=== PATIENT | male | born 1960 | race Caucasian/White ===

== ENCOUNTER 2022-02-05 07:16 | Outpatient (CLI) | payer BC, SELFPAY ==
[2022-02-05 15:05] LABS: SARS-CoV-2 RNA PCR Negative (Negative)
== END 2022-02-05 07:17 | disposition home or self-care (01) ==
PROVIDERS: PCP Internal Medicine; Visit Provider Surgery
DX: Z01.818 Encounter for other preprocedural examination (principal); Z20.822 Contact with and (suspected) exposure to COVID-19
CPT/HCPCS: C9803; U0003; U0005

== ENCOUNTER 2022-02-07 01:17 | Day surgery (SDC) | payer BC, SELFPAY ==
[2022-01-29 15:09] VITALS: BMI 32.5
--- NOTE | 2022-02-07 06:34 | WPDANESEPPF ---
Anes - Initial Pre Proc Eval Procedure: Operation Date: 02/07/22 08:30 Proposed Procedures p Screening Colonoscopy - Hector Guerrero DO Date/Time: 02/07/22 06:34 Surgeon: Hector Guerrero DO Pre Op Diagnosis: hx of colon polyps Patient Data Age: 61 Gender: M Height: 1.83 m Weight: 109 kg Allergies Allergy/AdvReac Type Severity Reaction Status Date / Time No Known Allergies Allergy Verified 02/07/22 07:49 Home Medications Medication Instructions Recorded Confirmed Type No Home Medications 01/29/22 02/07/22 History Patient hx anesthesia problems: none Family hx anesthesia problems: none Results Review: All pre-operative results and documents have been reviewed as part of the pre-operative evaluation. FORMERLY [facility], [facility] Past Medical History Medical History (Updated 02/07/22 @ 08:33 by Evelio Nguyen DO) ALPESH (obstructive sleep apnea) Social History Social History (System 04/28/20 @ 09:54 by Lexie Brar) Smoking packs per day: 0.75 Smoking cigarettes per day: 15.0 Years smoked: 44 Smoking pack-years: 33.00 Smoking status: Current every day smoker Tobacco type: cigarettes Alcohol intake: current Drinks per week: 1 Substance use: never Substance use type: does not use Living arrangements: with family Spiritual care concerns: No Anes - Eval Final PreProcedure Day of Procedure 02/07/22 06:34 Patient weight: obese Heart: regular rate and rhythm Lungs: clear to auscultation and normal air movement Airway: Mallampati scale class II Neurological: alert and oriented Last oral intake: >/= 8 hours ASA classification: III Emergent: no Anesthetic plan: proceed Anesthesia type and monitoring: general GIVS and standard monitoring Results Review: All pre-operative results and documents have been reviewed as part of the pre-operative evaluation. Informed Consent: The patient's anesthetic plan and its attendant risks and benefits were discussed with the patient/family/POA. Questions were solicited and answers provided to the satisfaction of the patient/family/POA.
[2022-02-07 07:40] VITALS: BP 121/89; PULSE 89; RESP 20; TEMP 36.3; O2SAT 98; BMI 32.8
[2022-02-07] MEDS: LACTATED RINGERS 1,000 ML 150 ML IV CONT (08:03)
--- NOTE | 2022-02-07 09:04 | PM.IMHP ---
H&P: HPI History of Present Illness Date/Time: 02/07/22 09:04 Chief Complaint: history of colon polyps Narrative: this is a 61-year-old man who presents for colonoscopy. Last colonoscopy was about 3 year 4 years ago. He has a history of colon polyps in states that during his 1st colonoscopy 1 of the polyps was cancerous. He denies any hematochezia or melena. He denies any first-degree relatives with colon cancer. Review of Systems Review of Systems: All systems reviewed & are unremarkable except as noted in HPI and below Constitutional: Constitutional: Denies chills, Denies fever(s), Denies headache(s) and Denies weight loss Eyes: Eyes: Denies change in vision ENT: Denies dizziness, Denies headache(s), Denies neck mass and Denies throat swelling Cardiovascular: Cardiovascular: Denies chest pain, Denies lightheadedness and Denies dyspnea Respiratory: Respiratory: Denies cough, Denies dyspnea and Denies wheezing Gastrointestinal: Gastrointestinal: Denies abdominal pain, Denies change in bowel habits, Denies nausea and Denies vomiting Genitourinary: Genitourinary: Denies hematuria and Denies dysuria Musculoskeletal: Musculoskeletal: Reports as per HPI Integumentary/Breasts: Skin/Breast: Reports as per HPI Neurologic: Denies dizziness and Denies headache(s) Allergic/Immunologic: Allergic/Immunologic: Denies throat swelling and Denies wheezing [facility] Past Medical History Medical History (Updated 02/07/22 @ 09:05 by Hector Guerrero DO) ALPESH (obstructive sleep apnea) Social History Social History (System 04/28/20 @ 09:54 by Lexie Brar) Smoking packs per day: 0.75 Smoking cigarettes per day: 15.0 Years smoked: 44 Smoking pack-years: 33.00 Smoking status: Current every day smoker Tobacco type: cigarettes Alcohol intake: current Drinks per week: 1 Substance use: never Substance use type: does not use Living arrangements: with family Spiritual care concerns: No Meds Home Medications and Allergies Home Medications Medication Instructions Recorded Confirmed Type No Home Medications 01/29/22 02/07/22 History Allergies Allergy/AdvReac Type Severity Reaction Status Date / Time No Known Allergies Allergy Verified 02/07/22 07:49 Vital Signs Vital Signs - 24 hr 02/07/22 07:40 Temperature 36.3 C L Pulse Rate 89 Respiratory Rate 20 Blood Pressure 121/89 Pulse Oximetry 98 Exam Const: General: no acute distress and alert Orientation/consciousness: patient oriented x3 HENMT: Head: normocephalic and atraumatic Ears: hearing grossly normal bilaterally General nose exam: Normal nares present Mouth: Yes Normal oral and palatal mucosa present Eyes: Periorbital: periorbital findings normal Sclera: sclerae normal EOM: EOMs intact bilaterally Neck: Neck: normal visual inspection, no lymphadenopathy and trachea midline Chest: Chest palpation & inspection: normal inspection of the chest Resp: Effort & Inspection: normal respiratory effort Auscultation: clear to auscultation bilaterally Cardio: Jugular venous distension: no JVD Rate: regular rate Rhythm: regular rhythm Heart sounds: S1 normal heart sound present and S2 normal heart sound present Peripheral pulses: Peripheral pulses 2+ throughout GI: Inspection: normal to inspection GI Palp: Yes Soft to palpation, No Tenderness to palpation present (GI), No Guarding due to palpation present (GI) and No Rebound tenderness present Percussion: Yes normal to percussion Auscultation: normal bowel sounds : General: Yes no CVA tenderness Back/Spine/Pelvis: Back: no CVA tenderness Neuro: General: patient oriented x3, no focal motor deficits and CN's II-XI intact bilaterally Cognition (Neuro): normal cognition Speech: normal speech Motor exam (neuro): 5/5 motor strength present throughout Extrem: General: capillary refill normal and no clubbing, cyanosis or edema Assessment and Plan Assessment
[2022-02-07 09:30] VITALS: BP 119/75; PULSE 81; RESP 24; O2SAT 96
[2022-02-07 09:40] VITALS: BP 125/74; PULSE 80; RESP 25; O2SAT 97
[2022-02-07 09:50] VITALS: BP 134/90; PULSE 80; RESP 20; O2SAT 100
== END 2022-02-07 10:50 | disposition home or self-care (01) ==
PROVIDERS: PCP Internal Medicine; Visit Provider Surgery
PROC: 0DJD8ZZ Inspection of Lower Intestinal Tract, Via Natural or Artificial Opening Endoscopic (ICD-10-PCS; CPT 45378; principal; 2022-02-07 08:30)
DX: Z12.11 Encounter for screening for malignant neoplasm of colon (principal); K57.30 Diverticulosis of large intestine without perforation or abscess without bleeding; D12.3 Benign neoplasm of transverse colon; K64.8 Other hemorrhoids; G47.33 Obstructive sleep apnea (adult) (pediatric); F17.210 Nicotine dependence, cigarettes, uncomplicated; E66.9 Obesity, unspecified; Z68.32 Body mass index [BMI] 32.0-32.9, adult
CPT/HCPCS: 45385; 88305; J2001; J2704; J7120

== ENCOUNTER 2023-12-15 12:19 | Emergency (ER) | payer MEDICAID, SELFPAY ==
[2023-12-15] VITALS (8 sets, daily range): BP systolic 107–152; BP diastolic 82–97; PULSE 78–101; RESP 16–19; TEMP 36.8–36.9; O2SAT 96–99
--- NOTE | 2023-12-15 12:27 | ED.GENADULT ---
HPI - General Adult General Chief complaint: Nausea/Vomiting/Diarrhea Stated complaint: diarreah/indigestion Time Seen by Provider: 12/15/23 12:21 History of Present Illness HPI narrative: Denis is a 63M with a PMH of hypertension that presented to the ED with 4 days of watery diarrhea. It started 4 days ago and he is having countless episodes throughout the day. He has been nauseated the last couple days and had a couple episodes of non-bloody vomiting. He denies melena and hematochezia. No fevers, chills, dyspnea or recent antibiotics. Related Data Allergies Allergy/AdvReac Type Severity Reaction Status Date / Time No Known Allergies Allergy Verified 11/04/22 14:00 Review of Systems Review of Systems: All systems reviewed & are unremarkable except as noted in HPI and below PMFSH Past Medical History Medical History ALPESH (obstructive sleep apnea) Social History Social History Smoking packs per day: 0.75 Smoking cigarettes per day: 15.0 Years smoked: 44 Smoking pack-years: 33.00 Smoking status: Current every day smoker Tobacco type: cigarettes Alcohol intake: current Drinks per week: 1 Substance use: never Substance use type: does not use Lack of Transportation: No Lack of Food: Never True Current Housing: I Have Housing Concerned About Future Housing: No Difficulty Paying Gas/Electric Bills: No Difficulty Paying for Meds: No Currently Unemployed: YES Education: Trade/Vocational Certificate Difficulty w/ Childcare or Family Care: No Living arrangements: with family Spiritual care concerns: No Exam Const: General: cooperative, healthy appearing, comfortable, no acute distress, well developed, alert, awake and Physically active Orientation/consciousness: oriented to person, oriented to place and oriented to time HENMT: Head: normal to inspection, normocephalic and atraumatic Ears: hearing grossly normal bilaterally and external ears normal Face/Nose/Sinus: Normal external nose present Other: dry mucous membranes Eyes: General: appearance normal, both eyes and all related structures Periorbital: periorbital findings normal Sclera: sclerae normal Pupils: Equal, round and reactive pupils present Neck: Neck: normal visual inspection Chest: Chest palpation & inspection: normal inspection of the chest Resp: Effort & Inspection: normal respiratory effort, able to speak in complete sentences and no respiratory distress Auscultation: clear to auscultation bilaterally Cardio: Jugular venous distension: no JVD Rate: regular rate Rhythm: regular rhythm GI: Inspection: normal to inspection GI Palp: Yes Soft to palpation Auscultation: Hyperactive bowel sounds present Other: No TTP or rebound tenderness Back/Spine/Pelvis: Back: no CVA tenderness Skin: General skin exam: normal color and no rashes or lesions noted Neuro: General: oriented to person, oriented to place and oriented to time Cranial nerves: Yes Equal, round and reactive pupils present Extrem: General: normal to inspection Course Course Emergency Course: Ordered UA, C. diff antigen, labs and fluids C. diff negative, labs unremarkable except for slight leukocytosis, and UA not concerning for infection Symptoms most likely from gastroenteritis vs methamphetamine withdrawal Vital Signs Vital signs: Vital Signs Temperature 98.3 F 12/15/23 12:23 Pulse Rate 101 H 12/15/23 12:23 Respiratory Rate 12/15/23 12:23 Blood Pressure 107/89 12/15/23 12:23 Pulse Oximetry 98 12/15/23 12:23 Oxygen Delivery Room Air 12/15/23 12:23 Temperature 98.3 F 12/15/23 12:23 Pulse Rate 101 H 12/15/23 12:23 Respiratory Rate 12/15/23 12:23 Blood Pressure 107/89 12/15/23 12:23 Pulse Oximetry 98 12/15/23 12:23 Oxygen Delivery Room Air 12/15/23 12:23
[2023-12-15 12:50] LABS: Basophils Absolute Auto 0.07 K/mm3 (0.00-0.10); Basophils Percent Auto 0.6 % (0.0-1.0); Eosinophils Absolute Auto 0.22 K/mm3 (0.02-0.50); Eosinophils Percent Auto 1.8 % (1.0-6.0); Hematocrit 50.8 % (40.0-54.0); Hemoglobin 16.4 g/dL (14.0-18.0); Immature Granulocyte Absolute 0.05 K/mm3 (0.00-0.00); Immature Granulocyte Percent A 0.4 % (0.0-0.0); Lymphocytes Absolute Auto 2.28 K/mm3 (1.10-4.50); Lymphocytes Percent Auto 18.4 % (18.0-42.0); Mean Corpuscular HGB Conc 32.3 g/dL (32.0-36.0); Mean Corpuscular Hemoglobin 28.9 pg (27.0-31.0); Mean Corpuscular Volume 89.4 fL (78.0-102.0); Mean Platelet Volume 10.7 fl (8.7-11.0); Monocytes Absolute Auto 1.33 K/mm3 (0.10-0.90); Monocytes Percent Auto 10.7 % (2.0-11.0); Neutrophils Absolute Auto 8.4 K/mm3 (1.7-7.2); Neutrophils Percent Auto 68.1 % (50.0-70.0); Platelet Count Result 331 K/mm3 (150-420); Red Blood Count 5.68 M/mm3 (4.70-6.10); White Blood Count 12.4 K/mm3 (4.8-10.8)
[2023-12-15] MEDS: SODIUM CHLORIDE 0.9% IV 1,000 ML 999 ML IV CONT (12:56)
[2023-12-15] MEDS: ONDANSETRON INJ 4 MG/2 ML VIAL IV PUSH (12:57)
[2023-12-15 13:08] LABS: Alanine Aminotransferase 28 U/L (16-63); Albumin Level 3.1 g/dL (3.4-5.0); Alkaline Phosphatase 102 U/L (46-116); Anion Gap 12 mmol/L (8-16); Aspartate Amino Transferase < 10 U/L (15-37); Bilirubin,Total 0.4 mg/dL (0.00-1.00); Blood Urea Nitrogen 25 mg/dL (7-18); Calcium 8.7 mg/dL (8.5-10.1); Carbon Dioxide 22 mmol/L (21-32); Chloride 105 mmol/L (98-108); Estimated Glomerular Filt Rate 56; Glucose 102 mg/dL (70-99); Osmolality Calculated 292 mOsm/kg (285-295); Potassium 4.3 mmol/L (3.5-5.1); Sodium 139 mmol/L (136-145); Total Protein 7.6 g/dL (6.4-8.2)
[2023-12-15 13:27] LABS: SARS-CoV-2 RNA PCR Negative (Negative)
[2023-12-15 13:28] LABS: Influenza A QL RT-PCR Negative (Negative); Influenza B QL RT-PCR Negative (Negative); RSV RNA, RT-PCR Negative (Negative)
[2023-12-15 14:04] LABS: Appearance Urine Clear (Clear); Bilirubin Urine Negative (Negative); Blood Urine Trace-Intact (Negative); Color Urine Yellow (Yellow); Glucose Urine UA Negative (Negative); Ketones Urine Trace (Negative); Leukocyte Esterase Ur Negative LEU/UL (Negative); Nitrate Urine Negative (Negative); Protein Urine 2+ (Negative); Specific Grav Ur >= 1.030 (1.010-1.020); Urobilinogen Urine 0.2 mg/dL (0.2-1.0)
[2023-12-15 14:18] LABS: Add Urine Microscopic? YES; Bacteria Urine Trace /hpf; Mucus Urine Few /lpf; RBC Urine None seen /hpf (0-2); Squamous Epithelial Cell Urine Occasional /hpf (Few); WBC Urine None seen /hpf (0-3)
[2023-12-15 14:53] LABS: Toxigenic C. Diff NEGATIVE (NEGATIVE)
== END 2023-12-15 15:15 | disposition home or self-care (01) ==
PROVIDERS: Emergency Provider Family Medicine; PCP Internal Medicine
DX: K52.9 Noninfective gastroenteritis and colitis, unspecified (principal); F15.10 Other stimulant abuse, uncomplicated; F17.210 Nicotine dependence, cigarettes, uncomplicated
CPT/HCPCS: 36415; 80053; 81001; 85025; 87493; 87637; 96361; 96374; 99284; J2405; J7030

== ENCOUNTER 2024-02-10 10:40 | Outpatient (CLI) | payer OTHER, SELFPAY ==
--- NOTE | ~2024-02-10 | US_ITS ---
EXAMINATION: US scrotum doppler DATE: 02/10/2024 11:31 INDICATION: Right scrotal lump. TECHNIQUE: Grayscale and Doppler ultrasound images of the testes were obtained. COMPARISON: CT abdomen and pelvis 02/26/2017 FINDINGS: The right testis measures 3.6 x 3.8 x 2.8 cm. The left testis measures 4.9 x 3.4 x 2.7 cm. There is normal vascular flow to both testes. The right epididymis is normal with normal vascular janey w. The left epididymis is normal with normal vascular flow. There is no varicocele or hydrocele. Ther e is a 3.5 cm mass in the scrotum on the right. IMPRESSION: 1. 3.5 cm mass in the scrotum on the right. The differential diagnosis includes abscess, hernia, and malignancy. Pelvis CT with contrast is recommended. Reviewed, dictated and finalized at location E. IMPRESSION: 1. 3.5 cm mass in the scrotum on the right. The differential diagnosis include s abscess, hernia, and malignancy. Pelvis CT with contrast is recommended.
[2024-02-10 11:02] LABS: Basophils Absolute Auto 0.06 K/mm3 (0.00-0.10); Basophils Percent Auto 0.5 % (0.0-1.0); Eosinophils Absolute Auto 0.36 K/mm3 (0.02-0.50); Eosinophils Percent Auto 3.1 % (1.0-6.0); Hematocrit 43.5 % (40.0-54.0); Immature Granulocyte Absolute 0.04 K/mm3 (0.00-0.00); Immature Granulocyte Percent A 0.3 % (0.0-0.0); Lymphocytes Absolute Auto 1.82 K/mm3 (1.10-4.50); Lymphocytes Percent Auto 15.5 % (18.0-42.0); Mean Corpuscular HGB Conc 32.2 g/dL (32-36); Mean Corpuscular Hemoglobin 29.2 pg (27.0-31.0); Mean Corpuscular Volume 90.8 fL (78.0-102.0); Monocytes Percent Auto 12.8 % (2.0-11.0); Neutrophils Absolute Auto 7.94 K/mm3 (1.70-7.20); Neutrophils Percent Auto 67.8 % (50.0-70.0); Platelet Count Result 252 K/mm3 (150-420); Red Blood Count 4.79 M/mm3 (4.70-6.10); Red Cell Distribution Width 13.6 % (11.6-14.4); White Blood Count 11.7 K/mm3 (4.8-10.8)
[2024-02-10 11:14] LABS: Appearance Urine Clear (Clear); Bilirubin Urine Negative (Negative); Blood Urine Trace-intact (Negative); Color Urine Yellow (Yellow); Glucose Urine UA Negative (Negative); Ketones Urine Negative (Negative); Leukocyte Esterase Ur Negative (Negative); Nitrate Urine Negative (Negative); Protein Urine Negative (Negative); Specific Grav Ur 1.015 (1.010-1.020); Urobilinogen Urine 0.2 mg/dL (0.2-1.0)
[2024-02-10 11:44] LABS: Add Urine Microscopic? YES
[2024-02-10 11:45] LABS: Bacteria Urine Trace /hpf; Squamous Epithelial Cell Urine Rare /hpf (Few); WBC Urine None seen /hpf (0-3)
[2024-02-10 12:06] LABS: Alanine Aminotransferase 27 U/L (16-63); Alkaline Phosphatase 113 U/L (46-116); Anion Gap 7 mmol/L (4-12); Aspartate Amino Transferase 16 U/L (15-37); Bilirubin,Total 0.2 mg/dL (0.00-1.00); Blood Urea Nitrogen 21 mg/dL (7-18); Calcium 8.9 mg/dL (8.5-10.1); Carbon Dioxide 27 mmol/L (21-32); Chloride 104 mmol/L (98-108); Cholesterol 156 mg/dL (0-200); Estimated Glomerular Filt Rate > 60; Glucose 100 mg/dL (70-99); HDL Direct 46 mg/dL (40-60); LDL Cholesterol Calculated 94 mg/dL (<130); Osmolality Calculated 289 mOsm/kg (285-295); Potassium 4.8 mmol/L (3.5-5.1); Sodium 138 mmol/L (136-145); Total Protein 6.6 g/dL (6.4-8.2); Triglycerides 79 mg/dL (0-150)
== END 2024-02-10 10:41 | disposition home or self-care (01) ==
LOC: CHSLAB 10:45
PROVIDERS: PCP Internal Medicine; Visit Provider Internal Medicine
DX: E78.2 Mixed hyperlipidemia (principal); I10 Essential (primary) hypertension; N50.89 Other specified disorders of the male genital organs
CPT/HCPCS: 36415; 76870; 80053; 80061; 81001; 84153; 85025; 93976; G0103

== ENCOUNTER 2024-03-24 11:26 | Outpatient (CLI) | payer OTHER, SELFPAY ==
--- NOTE | ~2024-03-24 | XR_ITS ---
EXAMINATION: XR ankle RT min 3V DATE: 03/24/2024 11:54 INDICATION: Right ankle pain. TECHNIQUE: 4 views of right ankle were obtained. COMPARISON: Right ankle radiographs 04/07/2017 FINDINGS: There are changes of arthrodesis procedures involving the distal fibula and tibia and talus with multiple lag screws. No fracture. There is mild midfoot osteoarthritis. There is an enthesophyt e at plantar aspect of calcaneal tuberosity. Ankle soft tissue swelling is noted. IMPRESSION: 1. Arthrodesis procedure involving tibia, fibula, and talus. 2. Mild midfoot osteoarthritis. Reviewed, dictated and finalized at location A.
== END 2024-03-24 11:27 | disposition home or self-care (01) ==
LOC: CHSIMG 11:28
PROVIDERS: PCP Internal Medicine; Visit Provider Internal Medicine
DX: M25.571 Pain in right ankle and joints of right foot (principal); Z98.890 Other specified postprocedural states; M19.071 Primary osteoarthritis, right ankle and foot
CPT/HCPCS: 73610

== ENCOUNTER 2024-04-06 10:26 | Outpatient (CLI) | payer OTHER, SELFPAY ==
--- NOTE | ~2024-04-06 | CT_ITS ---
EXAMINATION: CT abdomen pelvis wo/w con DATE: 04/06/2024 11:26 INDICATION: Microhematuria for 1 month TECHNIQUE: Computed tomography (CT) of the abdomen and pelvis was performed without and subsequently with 130 CC Omnipaque 350 intravenous contrast. Automated exposure control and iterative reconstructi on technique were employed. Exam dose: 2564.69 mGy-cm total exam DLP. COMPARISON: February 26, 2017 CT abdomen pelvis FINDINGS: There are calcified pulmonary granulomas consistent with old pulmonary granulomatous diseas e. There is no infiltrate or consolidation is noted at the lung bases. Normal heart size. No pericardial or pleural effusion. Scattered multiple hepatic cysts measuring up to approximately 2 cm maximal dimension. The liver, spl een, pancreas in the bile ducts and pancreatic duct are otherwise unremarkable. The gallbladder is pr esent; no gallbladder wall thickening or pericholecystic fluid or fat stranding. Stable small right adrenal adenoma and 2 stable slightly larger left adrenal adenomas, not significan tly changed since February 26, 2017. Multiple bilateral renal probable cysts. There is an indeterminate approximately 1.7 cm hypoenhancing lesion of the anteromedial mid right kid sushila. Similar density approximately 1.8 cm hypoenhancing lesion with mild linear posterior wall calcif ication is noted at the posterolateral mid left kidney. Some of the bilateral renal lesions are too s mall to definitively characterize. Consider renal MRI examination for further evaluation in order to exclude possible hypernephroma. Approximately 2.7 mm nonobstructing lower pole left renal calculus. No other urinary tract calculus o r hydroureteronephrosis. The urinary bladder is unremarkable. Prostate calcifications. Normal caliber of the abdominal aorta. No intraperitoneal or retroperitoneal or pelvic mass lesion or adenopathy or ascites is noted otherwise. Normal appendix. Diverticulosis of the sigmoid and descending colon; no CT evidence of diverticulitis. No bowel obstru ction, bowel wall thickening, pneumatosis or intraperitoneal free air is detected. Small fat-containing right inguinal hernia. Small fat-containing umbilical hernia. There is very prominent hypertrophic degenerative change at the L5-S1 apophyseal joints, with grade 1 anterolisthesis at L5-S1. There is severe degenerative disc disease throughout the lower thoracic and lumbar spine with associa sridevi mild retrolisthesis at L1-2, L2-3, L4-5. No suspicious osteolytic or osteoblastic lesions are noted. IMPRESSION: Multiple bilateral renal lesions, many of which are likely cysts, some renal lesions ind eterminate; consider renal MRI examination given the history of microhematuria Hepatic cysts 2.7 mm nonobstructing lower pole left renal calculus; no ureteral calculus or hydroureteronephrosis Prostate calcifications Normal appendix Diverticulosis of left colon; no evidence of diverticulitis Reviewed, dictated and finalized at Location A. Reviewed, dictated and finalized at location B. IMPRESSION: Multiple bilateral renal lesions, many of which are likely cysts, some renal lesions indeterminate; consider renal MRI examination given the hist ory of microhematuria Hepatic cysts 2.7 mm nonobstructing lower pole left renal calculus; no ureteral calculus or h ydroureteronephrosis Prostate calcifications Normal appendix Diverticulosis of left colon; no evidence of diverticulitis
[2024-04-06 10:57] LABS: Estimated Glomerular Filt Rate > 60
== END 2024-04-06 10:27 | disposition home or self-care (01) ==
LOC: CHSIMG 10:27
PROVIDERS: PCP Internal Medicine; Visit Provider Internal Medicine
DX: R31.9 Hematuria, unspecified (principal); N28.9 Disorder of kidney and ureter, unspecified; N20.0 Calculus of kidney; K57.90 Diverticulosis of intestine, part unspecified, without perforation or abscess without bleeding
CPT/HCPCS: 74178; Q9967

== ENCOUNTER 2024-11-01 13:04 | Outpatient (CLI) | payer OTHER, SELFPAY ==
--- OUTSIDE RECORDS SUMMARY | 2024-11-10 08:52 | XMS_ITS | Clinical Summary ---
Author Organization [facility] [employer] Address [address] [place] [address] Care Team Providers Care Lumber Bearer Name Role Phone Sophia Damian MD Primary Care Provider [phone] Source Comments [facility] [employer],non-owned Affiliates and Associated Physician Practices is amultiple site organization consisting of ambulatory clinics and hospital sitesin [place], [place], [place] and [place]. This disclosure is being madepursuant to the Care Everywhere program and may not contain all information available regarding this patient. Last updated 18.[employer] Allergies No known active allergies Medications * Be aware that medications may not be up to date on this document. Alwaysverify current medications with the patient. Medication Sig Dispensed Refills Start Date End Date Status ciprofloxacin-dexAMETH asone (Ciprodex) 0.3-0.1 % otic suspension Instill 4 (four) drops into right ear 2 times daily 10/28/2024 Active Encounters Date Type Department Care Team Description 11/03/2024 2:45 PM CHIP SILO TENDER Office Visit [facility] - ENT [address] [place] [address] Justice Aguirre MD Mixed conductive and sensorineural hearing loss of right ear with restricted hearing of left ear (Primary Dx); Impacted cerumen of right ear; Bilateral impacted cerumen; Chronic diffuse otitis externa of right ear; Perforation of right tympanic membrane; Myringitis; Otorrhea of right ear 11/03/2024 Travel 11/01/2024 Travel from Last 3 Months Social History Tobacco Use Types Packs/Day Years Used Date Smoking Tobacco: Every Day Cigarettes Smokeless Tobacco: Never Tobacco Cessation:Ready to Q uit: Not Asked; Counseling Given: Not Answered Alcohol Use Standard Drinks/Week Comments Yes 0 (1 standard drink = 0.6 oz pur e alcohol) occassionally Sex and Gender Information Value Date Recorded Sex Assigned at Not on file Gender Identity Not on file Sexual Orientation Not on file Last Filed Vital Signs Vital Sign Reading Time Taken Comments Blood Pressure 147/104 11/03/2024 2:53 PM CHIP SILO TENDER Pulse 88 11/03/2024 2:53 PM CHIP SILO TENDER Temperature - - Respiratory Rate - - Oxygen Saturation - - Inhaled Oxygen Concentration - - Weight 106.6 kg (235 lb) 11/03/2024 2:53 PM CHIP SILO TENDER Height 182.9 cm (6') 11/03/2024 2:53 PM CHIP SILO TENDER Body Mass Index 31.87 11/03/2024 2:53 PM CHIP SILO TENDER Plan of Treatment Upcoming Encounters Date Type Department Care Team (Late st Contact Info) Description 12/13/2024 1:00 PM CHIP SILO TENDER Appointment [facility] [address] [place] [phone] Justice Aguirre MD [address] [place] [address] DEPT [place] [address] 12/13/2024 2:00 PM CHIP SILO TENDER Testing Visit [facility] - ENT [address] [place] [phone] Boogie Smith, PhD [address] [place] [address] [place] [address] 12/13/2024 2:30 PM CHIP SILO TENDER Office Visit [facility] - ENT [address] [place] [phone] Justice Aguirre MD [address] [place] [address] DEPT [place] [address] Health Maintenance Due Date Last Done Comments COLOGUARD (AGES 45-75) - COL ON CA SCREENING 1961 COLON MONITORING 1961 COLONOSCOPY - COLON CA SCREENING 1961 CT COLONOGRAPHY - COLON CA SCREENING 1961 Colorectal Cancer Screening 1961 FIT - COLON CA SCREENING 1961 FLEX SIG - COLON CA SCREENING 1961 LIPID TESTING 1961 PNEUMOCOCCAL VACCINE (1 of 2 - PCV) 1967 HIV SCREENING 1976 HEPATITIS C SCREENING 04/19/1979 DTAP/TDAP/TD VACCINES (1 - Tdap) 1980 ZOSTER VACCINE (1 of 2) 2011 DEPRESSION SCREENING 11/17/2023 COVID-19 VACCINE (1 - 2023-2 5 season) 2024 INFLUENZA VACCINE (#1) 2024 SCREENING FOR DIABETES 11/03/2024 Respiratory Syncytial Virus (RSV) Vaccine Pt: or over 60 yrs (1 - 1-dose 75+ series) 2036 HEPATITIS B VACCINE Aged Out No longe r eligible based on patient's age to complete this topic HIB VACCINE Aged Out No longer eligi ble based on patient's age to complete this topic HPV VACCINE Aged Out No longer eligi ble based on patient's age to complete this topic MENINGOCOCCAL VACCINE Aged Out No liam jaylen eligible based on patient's age to complete this topic Procedures Procedure Name Priority Date/Time Associated Diagnosis Comments PROC CERUMEN REMOVAL Routine 11/03/2024 3:16 PM CHIP SILO TENDER Impacted cerumen of right ear from Last 3 Months Results * PROC CERUMEN REMOVAL (11/03/2024 3:16 PM CHIP SILO TENDER) Narrative Justice Aguirre MD - 11/03/2024 3:16 PM CHIP SILO TENDER Justice Aguirre MD ? 11/03/2024 ??4:01 PM Procedure: ??Binocular Microscopic Removal of Impacted Cerumen AD Indications: Cerumen impaction obscuring the tympanic membrane. ?? Findings: See main note. ?? Procedure Note: After verbal consent was obtained, the binocular operative microscope was brought into position. ??An otologic speculum was inserted into the cartilaginous external auditory canal. ??Cerumen was removed using a combination of cerumen loops, suction, and alligator forceps. ??There was no bleeding Justice Aguirre MD Justice Aguirre MD PROCEDURE/MINOR BOYD GICAL ORDERABLES from Last 3 Months Care Teams Lumber Bearer Relationship Specialty Start Date End Date Sophia Damian MD [address] [place] [address] PCP - General 02/11/22
--- OUTSIDE RECORDS SUMMARY | 2024-11-10 08:52 | XMS_ITS | Encounter Summary ---
Author Organization [facility] Address [address] [place] [address] Care Team Providers Care Security Rover Name Role Phone Sophia Damian MD Primary Care Provider [phone] Encounter Details Date Type Department Care Team (Late st Contact Info) Description 09/22/2018 Orders Only [facility] [id number] [phone] [place] [address] [address] Social History Tobacco Use Types Packs/Day Years Used Date Smoking Tobacco: Smoker, Current Status Unknown Smokeless Tobacco: Never Alcohol Use Standard Drinks/Week Comments Yes 0 (1 standard drink = 0.6 oz pur e alcohol) Sex and Gender Information Value Date Recorded Sex Assigned at Not on file Legal Sex Male 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 Take with food 90 tablet 09/22/2018 11/18/2018 documented in this encounter Plan of Treatment Not on file documented as of this encounter Visit Diagnoses Not on filedocumented in this encounter Discontinued Medications Medication Sig Discontinue Reason Start Date End Da te ibuprofen (ADVIL,MOTRIN) 800 mg tablet Take 1 tablet (800 mg total) by mouth every 8 (eight) hours as needed for pain. Take with food Reorder 07/29/2018 09/22/2018 documented as of this encounter Care Teams Security Rover Relationship Specialty Start Date End Date Sophia Damian MD [address] [place] [address] PCP - General 06/05/15 documented as of this encounter
--- OUTSIDE RECORDS SUMMARY | 2024-11-10 08:52 | XMS_ITS | Referral Summary ---
Author Organization [facility] Address [address] [place] [address] Care Team Providers Care Clean Room Technician Name Role Phone Sophia Damian MD Primary Care Provider [phone] Source Comments [facility],non-owned Affiliates and Associated Physician Practices is amultiple site organization consisting of ambulatory clinics and hospital sitesin [place], [place], [place] and [place]. This disclosure is being madepursuant to the Care Everywhere program and may not contain all information available regarding this patient. Last updated 18.[facility] Encounters Date Type Department Care Team Description 11/03/2024 Travel 11/03/2024 2:45 PM BODY WELDER Office Visit [facility] - ENT [address], [facility] [address] [place] [address] Justice Aguirre MD Mixed conductive and sensorineural hearing loss of right ear with restricted hearing of left ear (Primary Dx); Impacted cerumen of right ear; Bilateral impacted cerumen; Chronic diffuse otitis externa of right ear; Perforation of right tympanic membrane; Myringitis; Otorrhea of right ear 11/01/2024 Travel from Last 3 Months Allergies No known active allergies Medications * Be aware that medications may not be up to date on this document. Alwaysverify current medications with the patient. Medication Sig Dispensed Refills Start Date End Date Status ciprofloxacin-dexAMETH asone (Ciprodex) 0.3-0.1 % otic suspension Instill 4 (four) drops into right ear 2 times daily 10/28/2024 Active Social History Tobacco Use Types Packs/Day Years [...] Comments Blood Pressure 147/104 11/03/2024 2:53 PM BODY WELDER Pulse 88 11/03/2024 2:53 PM BODY WELDER Temperature - - Respiratory Rate - - Oxygen Saturation - - Inhaled Oxygen Concentration - - Weight 106.6 kg (235 lb) 11/03/2024 2:53 PM BODY WELDER Height 182.9 cm (6') 11/03/2024 2:53 PM BODY WELDER Body Mass Index 31.87 11/03/2024 2:53 PM BODY WELDER Plan of Treatment Upcoming Encounters Date Type Department Care Team (Late st Contact Info) Description 12/13/2024 1:00 PM BODY WELDER Appointment [facility] CAT SCAN [address] [place] [phone] Justice Aguirre MD [address] [place] [address] [place] [address] 12/13/2024 2:00 PM BODY WELDER Testing Visit [facility] - ENT [address] [place] [phone] Boogie Smith, PhD [address] [place] [address] [place] [address] 12/13/2024 2:30 PM BODY WELDER Office Visit [facility] - ENT [address] [place] [phone] Justice Aguirre MD [address] [place] [address] DE[place] [address] Procedures Procedure Name Priority Date/Time Associated Diagnosis Comments PROC CERUMEN REMOVAL Routine 11/03/2024 3:16 PM BODY WELDER Impacted cerumen of right ear from Last 3 Months Results * PROC CERUMEN REMOVAL (11/03/2024 3:16 PM BODY WELDER) Narrative Justice Aguirre MD - 11/03/2024 3:16 PM BODY WELDER Justice Aguirre MD ? 11/03/2024 ??4:01 PM [...] ORDERABLES from Last 3 Months Care Teams Clean Room Technician Relationship Specialty Start Date End Date Sophia Damian MD [address] [place] [address] PCP - General 02/11/22
--- OUTSIDE RECORDS SUMMARY | 2024-11-10 08:52 | XMS_ITS | Referral Summary ---
Author Organization [facility] Address [address] [place] [address] Care Team Providers Care Certified Histologic Technician Name Role Phone Sophia Damian MD Primary Care Provider [phone] Allergies No known active allergies Medications ALPRAZolam (XANAX) 0.25 mg tablet Take 0.25 mg by mouth nightly as needed for anxiety. Active cephalexin (KEFLEX) 250 mg capsule Take 1 capsule (250 mg total) by mouth 4 (four) times a day. 40 capsule 7 Active Additional Information Patient not taking.Reported on 07/29/2018 HYDROcodone-td taminophen (NORCO) 5-325 mg per tabletIndicatio ns:Pain Take 1-2 tablets every 6 hours as needed for pain 30 tablet 8 Active Additional Information Patient not taking.Reported on 07/29/2018 VITAMIN D2 50,000 unit capsule 8 Active traMADol (ULTRAM) 50 mg tablet Take 1-2 tablets every 4-6 hours as needed for pain. 30 tablet 8 Active ibuprofen (ADVIL,MOTRIN) 800 mg tablet TAKE 1 TABLET BY MOUTH EVERY 8 HOURS WITH FOOD NEEDED FOR PAIN 90 tablet 9 Active Active Problems Problem Noted Date Diagnosed Date Personal history of tobacco use, presenting hazards to health 05/18/2018 Primary osteoarthritis of right ankle 10/01/2017 Smoker 10/01/2017 Social History Tobacco Use Types Packs/Day Years Used Date Smoking Tobacco: Smoker, Current Status Unknown Smokeless Tobacco: Never Alcohol Use Standard Drinks/Week Comments Yes 0 (1 standard drink = 0.6 oz pur e alcohol) PHQ-2 Answer Date Recorded PHQ-2 Score 0 01/22/2019 Sex and Gender Information Value Date Recorded Sex Assigned at Not on file Legal Sex Male 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 Gender Identity Not on file Sexual Orientation Not on file Occupation Industry Job Start Date Job End Date unemployed Not on file Not on file Not on file Last Filed Vital Signs Vital Sign Reading Time Taken Comments Blood Pressure 120/80 05/18/2018 11:17 AM CDT Pulse 92 09/17/2017 3:11 PM CDT Temperature - - Respiratory Rate - - Oxygen Saturation - - Inhaled Oxygen Concentration - - Weight 108.5 kg (239 lb 3.2 oz) 018 11:16 AM CDT Height 182.9 cm (6') 07/29/2018 11:16 AM CDT Body Mass Index 32.44 07/29/2018 11:16 AM CDT Plan of Treatment Not on file Insurance [facility] [place]CH[place] Care Teams Certified Histologic Technician Relationship Specialty Start Date End Date Sophia Damian MD [address] [place] [address] [facility] - General 06/05/15
--- OUTSIDE RECORDS SUMMARY | 2024-11-10 08:52 | XMS_ITS | Patient Health Summary ---
Author Organization [facility] [employer] [employer] Address [address] [facility] [place] [place] [address] Care Team Providers Care Form Setter Name Role Phone Sophia Damian MD Primary Care Provider [phone] [facility],non-owned Affiliates and Associated Physician Practices is amultiple site organization consisting of ambulatory clinics and hospital sitesin [place], [place], [place] and [place]. This disclosure is being madepursuant to the Care Everywhere program and may not contain all information available regarding this patient. Last updated 18.[facility] Allergies No known active allergies Medications * Be aware that medications may not be up to date on this document. Alwaysverify current medications with the patient. * ciprofloxacin-dexAMETHasone (Ciprodex) 0.3-0.1 % otic suspension(Started 10/28/2024) Instill 4 (four) drops into right ear 2 times daily Social History Tobacco Use Types Packs/Day Years [...] Comments Blood Pressure 147/104 11/03/2024 2:53 PM BEAMING MACHINE OPERATOR Pulse 88 11/03/2024 2:53 PM BEAMING MACHINE OPERATOR Temperature - - Respiratory Rate - - Oxygen Saturation - - Inhaled Oxygen Concentration - - Weight 106.6 kg (235 lb) 11/03/2024 2:53 PM BEAMING MACHINE OPERATOR Height 182.9 cm (6') 11/03/2024 2:53 PM BEAMING MACHINE OPERATOR Body Mass Index 31.87 11/03/2024 2:53 PM BEAMING MACHINE OPERATOR Procedures * PROC CERUMEN REMOVAL(Performed 11/03/2024) Performed for Impacted cerumen of right ear Results * PROC CERUMEN REMOVAL (11/03/2024 3:16 PM BEAMING MACHINE OPERATOR) Narrative Justice Aguirre MD - 11/03/2024 3:16 PM BEAMING MACHINE OPERATOR Justice Aguirre MD ? 11/03/2024 ??4:01 PM [...] Justice Aguirre MD PROCEDURE/MINOR BOYD GICAL ORDERABLES Care Teams Form Setter Relationship Specialty Start Date End Date Sophia Damian MD [address] [place] [address] PCP - General 02/11/22
--- OUTSIDE RECORDS SUMMARY | 2024-11-10 08:52 | XMS_ITS | Encounter Summary ---
Author Organization [facility] Address [address] [place] [address] Care Team Providers Care Analytics Developer Name Role Phone Sophia Damian MD Primary Care Provider [phone] Encounter Details Date Type Department Care Team (Latest Contact Info) Description 11/01/2024 Travel Social History Tobacco Use Types Packs/Day Years Used Date Smoking Tobacco: Never Assessed Sex and Gender Information Value Date Recorded Sex Assigned at Not on file Gender Identity Not on file Sexual Orientation Not on file documented as of this encounter Plan of Treatment Upcoming Encounters Date Type Department Care Team (Late st Contact Info) Description 12/13/2024 1:00 PM MILLSTONE CLEANER Appointment [facility] CAT SCAN [address] [place] [phone] Justice Aguirre MD [address] [place] [address] [place] [address] 12/13/2024 2:00 PM MILLSTONE CLEANER Testing Visit [facility] - ENT [address] [place] [phone] Boogie Smith, PhD [address] [place] [address] [place] [address] 12/13/2024 2:30 PM MILLSTONE CLEANER [facility] [address] [place] [phone] Justice Aguirre MD [address] [place] [address] [place] [address] documented as of this encounter Visit Diagnoses Not on filedocumented in this encounter Care Teams Analytics Developer Relationship Specialty Start Date End Date Sophia Damian MD [address] [place] [address] PCP - General 02/11/22 documented as of this encounter
--- OUTSIDE RECORDS SUMMARY | 2024-11-10 08:52 | XMS_ITS | Encounter Summary ---
Author Organization [facility] Address [address] [place] [address] Care Team Providers Care Manager Party Name Role Phone Sophia Damian MD Primary Care Provider [phone] Encounter Details Date Type Department Care Team (Latest Contact Info) Description 11/03/2024 Travel Social History Tobacco Use Types Packs/Day Years Used Date Smoking Tobacco: Every Day Cigarettes Smokeless Tobacco: Never Alcohol Use Standard Drinks/Week [...] st Contact Info) Description 12/13/2024 1:00 PM CARE ATTENDANT Appointment [facility] CAT SCAN [address] [place] [address] Justice Aguirre MD [address] [place] [address] [place] [address] 12/13/2024 2:00 PM CARE ATTENDANT Testing Visit [facility] - ENT [address] [place] [phone] Boogie Smith, PhD [address] [place] [address] [place] [address] 12/13/2024 2:30 PM CARE ATTENDANT Office Visit [facility] - ENT [address] [place] [phone] Justice Aguirre MD [address] [place] [address] documented as of this encounter Visit Diagnoses Not on filedocumented in this encounter Care Teams Manager Party Relationship Specialty Start Date End Date Sophia Damian MD [address] [place] [phone] PCP - General 02/11/22 documented as of this encounter
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
--- OUTSIDE RECORDS SUMMARY | 2024-11-10 08:52 | XMS_ITS | Clinical Summary ---
Author Organization [facility] Address [address] [place] [address] Care Team Providers Care Rail Manager Name Role Phone Sophia Damian MD Primary Care Provider Allergies No known active allergies Medications ALPRAZolam [...] osteoarthritis of right ankle 10/01/2017 Smoker 10/01/2017 Medical History Medical History Date Comments Rheumatoid arthritis (HCC) Rheum atoid arthritis Malignant neoplasm of colon (HCC) Cancer, colon Family History Medical History Relation Name Comments No Known Problems Father No Known Problems Mother Relation Name Status Comments Father Mother Social History Tobacco Use Types Packs/Day Years Used Date Smoking Tobacco: Smoker, Current Status Unknown Smokeless Tobacco: Never Alcohol Use Standard Drinks/Week Comments Yes 0 (1 standard drink = 0.6 oz pur e alcohol) PHQ-2 Answer Date Recorded PHQ-2 Score 0 01/22/2019 Sex and Gender Information Value Date Recorded Sex Assigned at Not on file Legal Sex Male 3:53 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
--- OUTSIDE RECORDS SUMMARY | 2024-11-10 08:53 | XMS_ITS | Encounter Summary ---
Author Organization [facility] Address [address] [facility] [address] [place] [address] Care Team Providers Care Cardiovascular Rn Name Role Phone Sophia Damian MD Primary Care Provider + [phone] Reason for Referral * Diagnostic Imaging (Routine) - Closed Specialty Diagnoses / Procedures Referred By Contac t Referred To Contact Diagnoses Primary osteoarthritis of right ankle Procedures XR Ankle Right 3+ Vw Hari Mari Jr., MD Phone: tel: fax: Referral ID Status Reason Start Date Expiration Date Visits Re quested Visits Authorized [id number] Closed 07/29/2018 02/07/2020 1 1 Reason for Visit * Reason Comments Follow-up Encounter Details Date Type Department Care Team (Latest Contact Info) Description 07/29/2018 11:30 AM CDT Office Visit [facility] [id number] [address] Natalia Narayanan [place] [id number] [place] [id number] Primary osteoarthritis of right ankle (Primary Dx) Social History Tobacco Use Types Packs/Day Years Used Date Smoking Tobacco: Smoker, Current Status Unknown Smokeless Tobacco: Never Alcohol Use Standard Drinks/Week Comments Yes 0 (1 standard drink = 0.6 oz pur e alcohol) Sex and Gender Information Value Date Recorded Sex Assigned at Not on file 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 Gender Identity Not on file Sexual Orientation Not on file Occupation Industry Job Start Date Job End Date unemployed Not on file Not on file Not on file documented as of this encounter Last Filed Vital Signs Vital Sign Reading Time Taken Comments Blood Pressure - - Pulse - - Temperature - - Respiratory Rate - - Oxygen Saturation - - Inhaled Oxygen Concentration - - Weight 108.5 kg (239 lb 3.2 oz) 018 11:16 AM CDT Height 182.9 cm (6') 07/29/2018 11:16 AM CDT Body Mass Index 32.44 07/29/2018 11:16 AM CDT documented in this encounter Ordered Prescriptions Prescription Sig Dispense Quantity Refills Last Filled Start Date End Date traMADol (ULTRAM) 50 mg tablet Take 1-2 tablets every 4-6 hours as needed for pain. 30 tablet 07/29/2018 ibuprofen (ADVIL,MOTRIN) 800 mg tablet Take 1 tablet (800 mg total) by mouth every 8 (eight) hours as needed for pain. Take with food 90 tablet 07/29/2018 8 documented in this encounter Progress Notes * Natalia Narayanan PA - 07/29/2018 11:30 AM CDT Images from the original note were not included. FOLLOW UP VISIT Subjective CHIEF COMPLAINT He had concerns including Follow-up of the Right Ankle. HISTORY OF PRESENT ILLINESS Of his right ankle fusion. He is complaining of pain persisting in the right ankle. 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 Currently this involves 12 hr shifts 7 days a week. He states the ankle is sore and he had to discontinue wearing the boot and go to steel-toed boots as part of the job. He is asking for pain medication and cortisone shot his ankle. He is smoking minimally and using the bone stimulator. He has discontinued the Cam boot due to work complications. MEDICATIONS He has a current medication list which includes the following prescription(s): alprazolam, cephalexin, hydrocodone-acetaminophen, ibuprofen, tramadol, and vitamin d2. ALLERGIES He has No Known Allergies. Review of Systems Constitutional: Negative for diaphoresis and unexpected weight change. HENT: Negative for drooling, ear pain and sore throat. Eyes: Negative for photophobia, discharge and visual disturbance. Respiratory: Negative for apnea, choking and shortness of breath. Cardiovascular: Negative for chest pain. Gastrointestinal: Negative for abdominal distention, abdominal pain and vomiting. Endocrine: Negative for cold intolerance and heat intolerance. Genitourinary: Negative for dysuria and flank pain. Musculoskeletal: Negative for gait problem and neck pain. Skin: Negative for color change and rash. Allergic/Immunologic: Negative for immunocompromised state. Neurological: Negative for dizziness, speech difficulty and weakness. Hematological: Negative for adenopathy. Psychiatric/Behavioral: Negative for decreased concentration and hallucinations. PHYSICAL EXAM Exam demonstrates that the ankle is minimally swollen. The hindfoot motion is supple and painless in inversion and eversion. He can flex extend his toes and has no tenderness in the forefoot. The anterior medial and medial aspect of the ankle does have a slight area tenderness but this is much improved. I do not feel any motion at the arthrodesis site with challenge. REVIEW OF X-RAYS/STUDIES/LABS (IF ORDERED) XR Ankle Right 3+ Vw Right ankle three views demonstrates an ankle arthrodesis which is fixed with multiple screws and does appear to be solidly healed. Assessment/Plan Denis was seen today for follow-up. Diagnoses and all orders for this visit: Primary osteoarthritis of right ankle - XR Ankle Right 3+ Vw - CT Ankle Right WO Contrast; Future Other orders - traMADol (ULTRAM) 50 mg tablet; Take 1-2 tablets every 4-6 hours as needed for pain. - ibuprofen (ADVIL,MOTRIN) 800 mg tablet; Take 1 tablet (800 mg total) by mouth every 8 (eight) hours as needed for pain. Take with food Plan X-rays reviewed with patient. Clinically and radiographically the arthrodesis site does appear to be healed, however he prior CT scan did demonstrate ink a please consolidation of the arthrodesis site. As he is having increased pain with activity recommended a final CT scan to verify that this is solidly healed. I explained to him why he could not have a cortisone shot in the ankle. He requested pain medication and was given tramadol and ibuprofen. He will follow up here after the CT. BRANDY Pickett documented in this encounter Plan of Treatment Not on file documented as of this encounter Procedures Procedure Name Priority Date/Time Associated Diagnosis Comments XR ANKLE RIGHT 3 OR MORE VIEWS Schedule Routine, Read Routine (OP Routine) 07/29/2018 11:28 AM CDT Primary osteoarthritis of right ankle documented in this encounter Results * XR Ankle Right 3+ Vw (07/29/2018 11:28 AM CDT) Anatomical Region Laterality Modality Lower Extremities, Ankle Right Radiogr aphic Imaging Narrative 07/29/2018 12:26 PM CDT Right ankle three views demonstrates an ankle arthrodesis which is fixed with multiple screws and does appear to be solidly healed. Hari Mari Jr., MD IMG XR PROCEDURES F inal Result documented in this encounter Visit Diagnoses Diagnosis Primary osteoarthritis of right ankle- Primary documented in this encounter Care Teams Cardiovascular Rn Relationship Specialty Start Date End Date Sophia Damian MD [address] [place] [address] PCP - General 06/05/15 documented as of this encounter
--- OUTSIDE RECORDS SUMMARY | 2024-11-10 08:53 | XMS_ITS | Encounter Summary ---
Author Organization [facility] Address [address] [facility] [address] [place] [address] Care Team Providers Care Internet Marketing Executive Name Role Phone Sophia Damian MD Primary Care Provider + [phone] Reason for Visit * Diagnostic Imaging (Routine) - Closed Specialty Diagnoses / Procedures Referred By Contac t Referred To Contact Diagnoses Primary osteoarthritis of right ankle Procedures XR Ankle Right 3+ Vw Hari Mari Jr., MD Phone: tel: fax: Referral ID Status Reason Start Date Expiration Date Visits Re quested Visits Authorized [id number] Closed 05/18/2018 11/27/2019 1 1 Encounter Details Date Type Department Care Team (Latest Contact Info) Description 05/18/2018 11:34 AM CDT - 05/18/2018 11:59 PM CDT Hospital Encounter [facility] [id number] [address] Discharge Disposition: Discharge to home or self care Social History Tobacco Use Types Packs/Day Years Used Date Smoking Tobacco: Smoker, Current Status Unknown Smokeless Tobacco: Never Alcohol Use Standard Drinks/Week Comments Yes 0 (1 standard drink = 0.6 oz pur e alcohol) Sex and Gender Information Value Date Recorded Sex Assigned at Not on file 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 cephalexin (KEFLEX) 250 mg capsule Take 1 capsule (250 mg total) by mouth 4 (four) times a day. 40 capsule 10/01/2017 HYDROcodone-aceta minophen (NORCO) 5-325 mg per tabletIndications :Pain Take 1-2 tablets every 6 hours as needed for pain 30 tablet 12/10/2017 VITAMIN D2 50,000 unit capsule 02/19/2018 documented as of this encounter Discharge Disposition Disposition Code Departure Means Destination Discharge to home or self care documented in this encounter Plan of Treatment Not on file documented as of this encounter Procedures Procedure Name Priority Date/Time Associated Diagnosis Comments XR ANKLE RIGHT 3 OR MORE VIEWS Schedule Routine, Read Routine (OP Routine) 05/18/2018 11:34 AM CDT Primary osteoarthritis of right ankle documented in this encounter Results * XR Ankle Right 3+ Vw (05/18/2018 11:34 AM CDT) Anatomical Region Laterality Modality Lower Extremities, Ankle Right Radiogr aphic Imaging Narrative 05/18/2018 11:52 AM CDT Right ankle three views shows the ankle arthrodesis is progressing from prior films. ??No shift or change in the hardware with no lucency around the screws. Hari Mari Jr., MD IMG XR PROCEDURES F inal Result documented in this encounter Visit Diagnoses Not on filedocumented in this encounter Care Teams Internet Marketing Executive Relationship Specialty Start Date End Date Sophia Damian MD [address] [place] [address] PCP - General 06/05/15 documented as of this encounter
--- OUTSIDE RECORDS SUMMARY | 2024-11-10 08:53 | XMS_ITS | Encounter Summary ---
Author Organization [facility] Address [address] [facility] [address] [place] [address] Care Team Providers Care Assembler Leather Goods Name Role Phone Sophia Damian MD Primary Care Provider + [phone] Reason for Visit * Diagnostic Imaging (Routine) - Closed Specialty Diagnoses / Procedures Referred By Contac t Referred To Contact Diagnoses Primary osteoarthritis of right ankle Procedures XR Ankle Right 3+ Vw Hari Mari Jr., MD Phone: tel: fax: Referral ID Status Reason Start Date Expiration Date Visits Re quested Visits Authorized [id number] Closed 07/29/2018 02/07/2020 1 1 Encounter Details Date Type Department Care Team (Latest Contact Info) Description 07/29/2018 11:28 AM CDT - 07/29/2018 11:59 PM CDT Hospital Encounter [facility] [id number] [address] Discharge Disposition: Discharge to home or self care Social History Tobacco Use Types Packs/Day Years Used Date Smoking Tobacco: Smoker, Current Status Unknown Smokeless Tobacco: Never Alcohol Use Standard Drinks/Week Comments Yes 0 (1 standard drink = 0.6 oz pur e alcohol) Sex and Gender Information Value Date Recorded Sex Assigned at Not on file 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 30 tablet 07/29/2018 VITAMIN D2 50,000 unit capsule 02/19/2018 ibuprofen (ADVIL,MOTRIN) 800 mg tablet Take 1 tablet (800 mg total) by mouth every 8 (eight) hours as needed for pain. Take with food 90 tablet 07/29/2018 09/22/2018 documented as of this encounter Discharge Disposition [...] on filedocumented in this encounter Care Teams Assembler Leather Goods Relationship Specialty Start Date End Date Sophia Damian MD [address] [place] [address] PCP - General 06/05/15 documented as of this encounter
--- OUTSIDE RECORDS SUMMARY | 2024-11-10 08:53 | XMS_ITS | Encounter Summary ---
Author Organization [facility] Address [address] [facility] [address] [place] [address] Care Team Providers Care Reporter Name Role Phone Sophia Damian MD Primary Care Provider + [phone] Reason for Referral * Diagnostic Imaging (Routine) - Closed Specialty Diagnoses / Procedures Referred By Contac t Referred To Contact Radiology Diagnoses Primary osteoarthritis of right ankle Procedures CT Ankle Right WO Contrast Grace Woodall PA Phone: tel: fax: [address] [address] Referral ID Status Reason Start Date Expiration Date Visits Re quested Visits Authorized [id number] Closed 03/23/2018 09/19/2018 1 1 Reason for Visit * Reason Comments Pain Follow-up Encounter Details Date Type Department Care Team (Latest Contact Info) Description 03/23/2018 10:30 AM CDT Office Visit [facility] [id number] [facility] [address] [place] [address] Grace Woodall PA [address] [facility] [address] [place] [address] Primary osteoarthritis of right ankle (Primary Dx) Social History Tobacco Use Types Packs/Day Years Used Date Smoking Tobacco: Smoker, Current Status Unknown Smokeless Tobacco: Never Alcohol Use Standard Drinks/Week Comments Yes 0 (1 standard drink = 0.6 oz pur e alcohol) Sex and Gender Information Value Date Recorded Sex Assigned at Not on file 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 FOLLOW UP VISIT Subjective CHIEF COMPLAINT He had concerns including Pain and Follow-up of the Right Ankle. HISTORY OF PRESENT ILLNESS Pt reports continued right ankle pain. States there has maybe been slight improvement in the pain, but even walking to x-ray today which is right down the hallway caused significant pain. He is usingcrutches and a cane, depending on how bad the pain is. He is not taking anything for pain. He is anxious to get started with the bone stimulator but had to wait 6 mos per his insurance. His last CT showed he has partial fusion of the ankle as well as the distal tib-fib joint but some lucencies of the screws. Pain Assessment Pain Assessment: 0-10 Pain Score: 2 Pain Location: Ankle Pain Orientation: Right Pain Descriptors: Aching Pain Frequency: Constant/continuous Pain Onset: Ongoing Clinical Progression: Gradually improving Aggravating Factors: Walking Pain Interventions: Rest, Home medication MEDICATIONS He has a current medication list which includes the following prescription(s): alprazolam, cephalexin, vitamin d2, and hydrocodone-acetaminophen. REVIEW OF SYSTEMS Review of Systems Constitutional: Negative for chills and fever. HENT: Negative for hearing loss and trouble swallowing. Eyes: Negative for discharge. Respiratory: Negative for shortness of breath. Cardiovascular: Negative for chest pain. Gastrointestinal: Negative for abdominal pain. Genitourinary: Negative for flank pain. Musculoskeletal: Positive for arthralgias and joint swelling. Skin: Negative for wound. Neurological: Negative for dizziness and seizures. Psychiatric/Behavioral: Negative for confusion. Objective PHYSICAL EXAM Ht 182.9 cm (6') Wt 102.1 kg (225 lb) BMI 30.52 kg/m?? Right foot/ankle Inspection Erythema: absent Effusion: absent Surgical scar/wound: present. The surgical scar/wound is: healed and no infection. There is no drainage present. Deformity: absent Callous: absent Edema: present Skin temperature: normal Gait: antalgic Ankle: Anterior joint line: yes Anterior medial corner: yes Anterior lateral corner: yes Medial ankle: PTT, insertion: no PTT, inframalleolar: no Deltoid: no Medial malleolus: yes Lateral ankle: ATFL: no CFL: no AITFL (squeeze test): no Lateral malleolus: no Base of 5th MT: no Peroneal insertion/tubercle: no Peroneal groove: no Heel: Plantar fascia, origin: no Plantar fascia, midsubstance: no Achilles insertion: yes Achilles non insertion: yes Range of motion The patient has reduced range of motion. Stability The patient has normal stability. Strength The patient has 5/5 strength throughout. Neurovascular The patient has normal vascular on the right side of their body. The patient has normal sensation on the right side of their body. REVIEW OF X-RAYS/STUDIES/LABS XR Ankle Right 3+ Vw Right ankle 3 views shows ankle arthrodesis in good position without evidence of hardware failure with good joint space obliteration. Assessment/Plan Denis was seen today for pain and follow-up. Diagnoses and all orders for this visit: Primary osteoarthritis of right ankle - XR Ankle Right 3+ Vw - CT Ankle Right WO Contrast; Future PLAN Discussed treatment options. Recommend pt begin right ankle bone stimulator as previously discussed. Will also order right ankle CT to evaluate percentage of joint surface that is fused. RTC after CTfor further recommendations. BRANDY Davis Cosigned by Hari Mari Jr., MD at 03/24/2018 7:04 AM CDT documented in this encounter Plan of Treatment Not on file documented as of this encounter Procedures Procedure Name Priority Date/Time Associated Diagnosis Comments XR ANKLE RIGHT 3 OR MORE VIEWS Schedule Routine, Read Routine (OP Routine) 03/23/2018 11:00 AM CDT Primary osteoarthritis of right ankle documented in this encounter Results * CT Ankle Right WO Contrast (03/26/2018 10:08 AM CDT) Anatomical Region Laterality Modality Ankle Right Computed Tomogra phy Impressions 03/26/2018 10:36 AM CDT 1. ??ARTHRODESIS WITH ASSOCIATED DEGENERATIVE CHANGE AT THE DISTAL TIBIOFIBULAR JOINT, TIBIOTALAR JOINT, FIBULOTALAR JOINT, AND SUBTALAR JOINT. ??OVERALL SIMILAR APPEARANCE TO PRIOR STUDY. 2. ??LUCENCY AROUND THE SCREWS FUSING THE TIBIOTALAR JOINT, WITH SLIGHT INCREASED LUCENCY ASSOCIATED WITH ONE OF THE SCREWS. Electronically signed by: Elroy Ohara 03/26/2018 10:[address] ANKLE RIGHT WO CONTRAST HISTORY: Primary osteoarthritis, right ankle and foot. ??Prior ankle fusion. ??Right ankle pain. TECHNIQUE: Helical CT scan with thin section axial images, with sagittal and coronal reformatted images. ??Soft tissue and osseous windows. 3-D reconstructions on independent workstation. COMPARISON: 02/13/2018. FINDINGS: Arthrodesis of the distal tibiofibular articulation, tibiotalar joint, and fibulotalar joints are once again noted. Degenerative changes seen involving these joints and the subtalar joint. ??Orthopedic hardware appears intact. ??No change in orthopedic hardware from the prior study. ??Some lucency around the screws fusing the tibiotalar joint, with slightly increased lucency as well as screws, but the difference is minimal. ??Osteotomy distal fibula, as previously. ??No acute fracture identified. ??Some mottled bony density especially the calcaneus which may represent some disuse osteopenia. Procedure Note Neno Dc MD - 03/26/2018 CT ANKLE RIGHT WO CONTRAST HISTORY: Primary osteoarthritis, right ankle and foot. Prior ankle fusion. Right ankle pain. TECHNIQUE: Helical CT scan with thin section axial images, with sagittal and coronal reformatted images. Soft tissue and osseous windows. 3-D reconstructions on independent workstation. COMPARISON: 02/13/2018. FINDINGS: Arthrodesis of the distal tibiofibular articulation, tibiotalar joint, and fibulotalar joints are once again noted. Degenerative changes seen involving these joints and the subtalar joint. Orthopedic hardware appears intact. No change in orthopedic hardware from the prior study. Some lucency around the screws fusing the tibiotalar joint, with slightly increased lucency as well as screws, but the difference is minimal. Osteotomy distal fibula, as previously. No acute fracture identified. Some mottled bony density especially the calcaneus which may represent some disuse osteopenia. IMPRESSION: 1. ARTHRODESIS WITH ASSOCIATED DEGENERATIVE CHANGE AT THE DISTAL TIBIOFIBULAR JOINT, TIBIOTALAR JOINT, FIBULOTALAR JOINT, AND SUBTALAR JOINT. OVERALL SIMILAR APPEARANCE TO PRIOR STUDY. 2. LUCENCY AROUND THE SCREWS FUSING THE TIBIOTALAR JOINT, WITH SLIGHT INCREASED LUCENCY ASSOCIATED WITH ONE OF THE SCREWS. Electronically signed by: Neno Dc M.D Grace NAVA IMG CT PROCEDURES Brianna l Result * XR Ankle Right 3+ Vw (03/23/2018 11:00 AM CDT) Anatomical Region Laterality Modality Lower Extremities, Ankle Right Radiogr aphic Imaging Narrative 03/23/2018 4:32 PM CDT Right ankle 3 views shows ankle arthrodesis in good position without evidence of hardware failure with good joint space obliteration. Hari Mair Jr., MD IMG XR PROCEDURES F inal Result documented in this encounter Visit Diagnoses Diagnosis Primary osteoarthritis of right ankle- Primary Primary osteoarthritis of right ankle documented in this encounter Historical Medications * This list may reflect changes made after this encounter. Medication Sig Dispense Quantity Refills Last Filled Start D ate End Date VITAMIN D2 50,000 unit capsule 02/19/2018 added in this encounter Care Teams Reporter Relationship Specialty Start Date End Date Sophia Damian MD [address] [place] [address] PCP - General 06/05/15 documented as of this encounter
--- OUTSIDE RECORDS SUMMARY | 2024-11-10 08:53 | XMS_ITS | Encounter Summary ---
Author Organization [facility] Address [address] [place] [address] Care Team Providers Care Software Engineering Specialist Name Role Phone Sophia Damian MD Primary Care Provider + [phone] Reason for Referral * Diagnostic Imaging (Routine) - Closed Specialty Diagnoses / Procedures Referred By Grantac t Referred To Contact Radiology Diagnoses Primary osteoarthritis of right ankle Procedures CT Ankle Right WO Contrast Grace Woodall PA Phone: tel: fax: [address] [address] Referral ID Status Reason Start Date Expiration Date Visits Re quested Visits Authorized [id number] Closed 03/23/2018 09/19/2018 1 1 Reason for Visit * Diagnostic Imaging (Routine) - Closed Specialty Diagnoses / Procedures Referred By Neo haynes Referred To Contact Radiology Diagnoses Primary osteoarthritis of right ankle Procedures CT Ankle Right WO Contrast Grace Woodall PA Phone: tel: fax: [address] [address] Referral ID Status Reason Start Date Expiration Date Visits Re quested Visits Authorized [id number] Closed 03/23/2018 09/19/2018 1 1 Encounter Details Date Type Department Care Team (Latest Contact Info) Description 03/26/2018 9:34 AM CDT - 03/26/2018 11:59 PM CDT Hospital Encounter [facility] [address] [place] [id number] Grace Woodall PA [address] [place] [address] Primary osteoarthritis of right ankle Discharge Disposition: Discharge to home or self care Social History Tobacco Use Types Packs/Day Years Used Date Smoking Tobacco: Smoker, Current Status Unknown Smokeless Tobacco: Never Alcohol Use Standard Drinks/Week Comments Yes 0 (1 standard drink = 0.6 oz pur e alcohol) Sex and Gender Information Value Date Recorded Sex Assigned at Not on file 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 * Grace Woodall PA - 03/26/2018 11:50 AM CDT Do you need him to return to clinic or may he just proceed with the bone stimulator and return to clinic in 6 weeks? documented in this encounter Plan of Treatment Not on file documented as of this encounter Procedures Procedure Name Priority Date/Time Associated Diagnosis Comments CT ANKLE RIGHT WO CONTRAST Schedule Routine, Read Routine (OP Routine) 03/26/2018 10:08 AM CDT Primary osteoarthritis of right ankle [...] NAVA IMG CT PROCEDURES Brianna l Result documented in this encounter Visit Diagnoses Diagnosis Primary osteoarthritis of right ankle documented in this encounter Care Teams Software Engineering Specialist Relationship Specialty Start Date End Date Sophia Damian MD [address] [place] [address] PCP - General 06/05/15 documented as of this encounter
--- OUTSIDE RECORDS SUMMARY | 2024-11-10 08:53 | XMS_ITS | Encounter Summary ---
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 He needs to be on some treatment for it. His PCP Dr Damian needs to be notified. documented in this encounter Plan of Treatment Not on file documented as of this encounter Procedures Procedure Name Priority Date/Time Associated Diagnosis Comments VITAMIN D 25 HYDROXY Routine 02/18/2018 12:03 PM CDT Primary osteoarthritis of right ankle DISCHARGE LABORATORY CUMULATIVE REPORT 02/18/2018 12:00 AM CDT documented in this encounter Results * (ABNORMAL) Vitamin D 25 hydroxy (02/18/2018 12:03 PM CDT) Vitamin D 25-OH 25(L) 30 - 80 ng/mL NEENA Blood specimen (specimen) 02/18/2018 12:03 PM CDT 02/18/2018 1:54 PM CDT Narrative NEENA SANTIAGO - 02/18/2018 2:33 PM CDT Hari Mari Jr., MD LAB BLOOD ORDERABLE S Final Result [facility] [address] [facility] [place] [address] * DISCHARGE LABORATORY CUMULATIVE REPORT (02/18/2018 12:00 AM CDT) Narrative 02/18/2018 12:00 AM CDT Ordered by an unspecified provider. Historical Provider LAB BLOOD ORDERABLES Brianna l Result documented in this encounter Visit Diagnoses Diagnosis Primary osteoarthritis of right ankle documented in this encounter Care Teams Portuguese Tutor Relationship Specialty Start Date End Date Sophia Damian MD [address] [place] [address] PCP - General 06/05/15 documented as of this encounter
--- OUTSIDE RECORDS SUMMARY | 2024-11-10 08:53 | XMS_ITS | Encounter Summary ---
Author Organization [facility] Address [address] [facility] [address] [place] [address] Care Team Providers Care Electronics Test Engineer Name Role Phone Sophia Damian MD Primary Care Provider + [phone] Reason for Visit * Reason Comments Pain Test Results Encounter Details Date Type Department Care Team (Latest Contact Info) Description 02/18/2018 11:00 AM CDT Office Visit [facility] [address] [address] [place]., [place] [id number] [place] [address] Primary osteoarthritis of right ankle (Primary Dx) Social History Tobacco Use Types Packs/Day Years Used Date Smoking Tobacco: Smoker, Current Status Unknown Smokeless Tobacco: Never Alcohol Use Standard Drinks/Week Comments Yes 0 (1 standard drink = 0.6 oz pur e alcohol) Sex and Gender Information Value Date Recorded Sex Assigned at Not on file 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 FOLLOW UP VISIT Subjective CHIEF COMPLAINT He had concerns including Pain and Results of the Right Ankle. HISTORY OF PRESENT ILLNESS He is here for follow-up for his right ankle arthrodesis done on 09/16/2017. He is weight-bearing in his walker boot but still having some discomfort. He is also here for the results of his CT. The CT results were explained to the patient and family. All questions were answered to their satisfaction. Pain Assessment Pain Assessment: 0-10 Pain Score: 4 Pain Location: Ankle Pain Orientation: Right Pain Descriptors: Aching Pain Frequency: Constant/continuous Pain Onset: Ongoing Date Pain First Started: 12/21/17 Clinical Progression: Not changed Aggravating Factors: Standing, Walking Result of Injury: (surgery) Pain Interventions: Medication (See MAR), Home medication, Rest MEDICATIONS He has a current medication list which includes the following prescription(s): alprazolam, cephalexin, and hydrocodone-acetaminophen. REVIEW OF SYSTEMS Review of Systems Objective PHYSICAL EXAM Ht 182.9 cm (6') Wt 100.7 kg (222 lb) BMI 30.11 kg/m?? Ortho Exam REVIEW OF X-RAYS/STUDIES/LABS CT right ankle done on 02/11/2018 shows partial fusion of the tibiotalar joint as well as the tib-fib joint. Probably 30-40% fusion of both of these areas. There is some lucency around the surrounding screws. Assessment/Plan Denis was seen today for pain and results. Diagnoses and all orders for this visit: Primary osteoarthritis of right ankle - Vitamin D 25 hydroxy; Future - Bone stimulator He is little over 5 months follow-up for his right ankle arthrodesis. He still having some discomfort when he walks in the tall walker boot. The ankle is clinically stable to stress. His recent CT confirms he has partial fusion of the ankle as well as the distal tib-fib joint but some lucencies of the screws. PLAN We discussed the options of repeat surgery continued casting or electrostimulation. He elected to proceed with electrical stimulation. Also since he has a history of poor nutrition I will get a vitamin-D level to see if the he has poor bone healing as well. I will see him in 1 month with weight-bear ing x-rays of his right ankle and continue weight-bearing in the walker boot.. Hari Mari Jr., MD documented in this encounter Plan of Treatment Not on file documented as of this encounter Results * (ABNORMAL) Vitamin D 25 hydroxy (02/18/2018 12:03 PM CDT) Vitamin D 25-OH 25(L) 30 - 80 ng/mL NEENA Blood specimen (specimen) 02/18/2018 12:03 PM CDT 02/18/2018 1:54 PM CDT Narrative NEENA - 02/18/2018 2:33 PM CDT Hari Mari Jr., MD LAB BLOOD ORDERABLE S Final Result NEENA [address] [facility] Department [place] [address] documented in this encounter Visit Diagnoses Diagnosis Primary osteoarthritis of right ankle- Primary Primary osteoarthritis of right ankle documented in this encounter Orders General Supply Count Last Ordered Date First Or dered Date BONE STIMULATOR 1 02/18/2018 documented in this encounter Care Teams Electronics Test Engineer Relationship Specialty Start Date End Date Sophia Damian MD [address] [place] [address] PCP - General 06/05/15 documented as of this encounter
--- OUTSIDE RECORDS SUMMARY | 2024-11-10 08:53 | XMS_ITS | Encounter Summary ---
Author Organization [facility] Address [address] [facility] [address] [place] [address] Care Team Providers Care Chief Deputy Sheriff Name Role Phone Sophia Damian MD Primary Care Provider + [phone] Encounter Details Date Type Department Care Team (Late st Contact Info) Description 09/22/2018 Telephone [facility] [address] [address] Tim Londono Social History Tobacco Use Types Packs/Day Years Used Date Smoking Tobacco: Smoker, Current Status Unknown Smokeless Tobacco: Never Alcohol Use Standard Drinks/Week Comments Yes 0 (1 standard drink = 0.6 oz pur e alcohol) Sex and Gender Information Value Date Recorded Sex Assigned at Not on file 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 Gender Identity Not on file Sexual Orientation Not on file Occupation Industry Job Start Date Job End Date unemployed Not on file Not on file Not on file documented as of this encounter Miscellaneous Notes * Telephone Encounter - Kathleen Barbosa PA - 09/22/2018 9:30 AM CST Refill sent to pharmacy LE TESTER * Telephone Encounter - Tim Londono - 09/22/2018 9:19 AM CST Refill for ibuprofen 800mg LE TESTER documented in this encounter Plan of Treatment Not on file documented as of this encounter Visit Diagnoses Not on filedocumented in this encounter Care Teams Chief Deputy Sheriff Relationship Specialty Start Date End Date Sophia Damian MD [address] [place] [id number] PCP - General 06/05/15 documented as of this encounter
--- OUTSIDE RECORDS SUMMARY | 2024-11-10 08:53 | XMS_ITS | Encounter Summary ---
Author Organization [facility] Address [address] [place] [address] Care Team Providers Care Packing Tractor Machine Operator Name Role Phone Sophia Damian MD Primary Care Provider + [phone] Reason for Referral * Diagnostic Imaging (Routine) - Closed Specialty Diagnoses / Procedures Referred By Contac t Referred To Contact Radiology Diagnoses Primary osteoarthritis of right ankle Procedures CT Ankle Right WO Contrast Natalia Narayanan PA Phone: tel: fax: [address] [address] Referral ID Status Reason Start Date Expiration Date Visits Re quested Visits Authorized [id number] Closed 02/11/2018 08/10/2018 1 1 Reason for Visit * Diagnostic Imaging (Routine) - Closed Specialty Diagnoses / Procedures Referred By Contac t Referred To Contact Radiology Diagnoses Primary osteoarthritis of right ankle Procedures CT Ankle Right WO Contrast Natalia Narayanan PA Phone: tel: fax: [address] [address] Referral ID Status Reason Start Date Expiration Date Visits Re quested Visits Authorized [id number] Closed 02/11/2018 08/10/2018 1 1 Encounter Details Date Type Department Care Team (Latest Contact Info) Description 02/13/2018 1:40 PM CDT - 02/13/2018 11:59 PM CDT Hospital Encounter [facility] [address] [place] [address] [place] [address] [address] [place] [address] [facility] [address] [place] [address] Primary osteoarthritis of right ankle Discharge Disposition: [...] on file 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 Gender Identity Not on file Sexual Orientation [...] as needed for pain 30 tablet 12/10/2017 documented as of this encounter Discharge Disposition Disposition Code Departure Means Destination Discharge to home or self care documented in this encounter Plan of Treatment Not on file documented as of this encounter Procedures Procedure Name Priority Date/Time Associated Diagnosis Comments CT ANKLE RIGHT WO CONTRAST Schedule Routine, Read Routine (OP Routine) 02/13/2018 2:08 PM CDT Primary osteoarthritis of right ankle documented in this encounter Results * CT Ankle Right WO Contrast (02/13/2018 2:08 PM CDT) Anatomical Region Laterality Modality Ankle Right Computed Tomogra phy Impressions 02/13/2018 2:14 PM CDT 1. ??Ankle arthrodesis with associated degenerative change at the distal tibiofibular articulation, tibiotalar joint, fibulotalar joint, and subtalar joint. Electronically signed by: Micheal Neff M.D. Narrative 02/13/2018 2:14 PM CDT EXAM: CT ANKLE RIGHT WO CONTRAST HISTORY: Osteoarthritis. ??Prior ankle fusion. TECHNIQUE: Axial images of the right ankle with sagittal, coronal, 3-D reconstructions COMPARISON: Intraoperative fluoroscopy from 09/16/2017 FINDINGS: Arthrodesis of the distal tibiofibular articulation, tibiotalar joint, and fibulotalar joints are noted. ??Degenerative change is seen involving those joints and the subtalar joint. ??Lucency has developed around the screws fusing the tibiotalar joint. ??No acute fracture is evident. ??An osteotomy of the distal fibula is noted. Multiplanar and 3-D reconstructed views were utilized making the above findings. Procedure Note Micheal Neff MD - 02/13/2018 EXAM: CT ANKLE RIGHT WO CONTRAST HISTORY: Osteoarthritis. Prior ankle fusion. TECHNIQUE: Axial images of the right ankle with sagittal, coronal, 3-D reconstructions COMPARISON: Intraoperative fluoroscopy from 09/16/2017 FINDINGS: Arthrodesis of the distal tibiofibular articulation, tibiotalar joint, and fibulotalar joints are noted. Degenerative change is seen involving those joints and the subtalar joint. Lucency has developed around the screws fusing the tibiotalar joint. No acute fracture is evident. An osteotomy of the distal fibula is noted. Multiplanar and 3-D reconstructed views were utilized making the above findings. IMPRESSION: 1. Ankle arthrodesis with associated degenerative change at the distal tibiofibular articulation, tibiotalar joint, fibulotalar joint, and subtalar joint. Electronically signed by: Micheal Neff M.D. Natalia NAVA IMG CT PROCEDURES Final Resul t documented in this encounter Visit Diagnoses Diagnosis Primary osteoarthritis of right ankle documented in this encounter Care Teams Packing Tractor Machine Operator Relationship Specialty Start Date End Date Sophia Damian MD [address] [place] [address] PCP - General 06/05/15 documented as of this encounter
--- OUTSIDE RECORDS SUMMARY | 2024-11-10 08:53 | XMS_ITS | Encounter Summary ---
Author Organization [facility] Address [address] [facility] [address] [place] [address] Care Team Providers Care Fire Equipment Repairer Inspector Name Role Phone Sophia Damian MD Primary Care Provider + [phone] Reason for Referral * Diagnostic Imaging (Routine) - Closed Specialty Diagnoses / Procedures Referred By Contac t Referred To Contact Diagnoses Primary osteoarthritis of right ankle Procedures XR Ankle Right 3+ Vw Hari Mari Jr., MD Phone: tel: fax: Referral ID Status Reason Start Date Expiration Date Visits Re quested Visits Authorized [id number] Closed 05/18/2018 11/27/2019 1 1 Reason for Visit * Reason Comments Pain Follow-up Encounter Details Date Type Department Care Team (Latest Contact Info) Description 05/18/2018 11:00 AM CDT [facility] [address] [address] Hari Mari Jr., MD [address] [place] [address] Primary osteoarthritis of right ankle (Primary Dx); Personal history of tobacco use, presenting hazards to health Social History Tobacco Use Types Packs/Day Years Used Date Smoking Tobacco: Smoker, Current Status Unknown Smokeless Tobacco: Never Alcohol Use Standard Drinks/Week Comments Yes 0 (1 standard drink = 0.6 oz pur e alcohol) Sex and Gender Information Value Date Recorded Sex Assigned at Not on file 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 Gender Identity Not on file Sexual Orientation Not on file Occupation Industry Job Start Date Job End Date unemployed Not on file Not on file Not on file documented as of this encounter Last Filed Vital Signs Vital Sign Reading Time Taken Comments Blood Pressure 120/80 05/18/2018 11:17 AM CDT Pulse - - Temperature - - Respiratory Rate - - Oxygen Saturation - - Inhaled Oxygen Concentration - - Weight 103.4 kg (228 lb) 05/18/2018 11:17 AM CDT Height 182.9 cm (6') 05/18/2018 11:17 AM CDT Body Mass Index 30.92 05/18/2018 11:17 AM CDT documented in this encounter Progress Notes * Hari Mari Jr., MD - 05/18/2018 11:00 AM CDT Images from the original note were not included. FOLLOW UP VISIT Subjective CHIEF COMPLAINT He had concerns including Pain and Follow-up of the Right Ankle. HISTORY OF PRESENT ILLNESS Seen for follow-up of his right ankle arthrodesis done on 09/16/2017. He has been doing electrical stimulator for 6 weeks as well as recently been diagnosed having vitamin-D deficiency so getting supplementation for that as well. He is receiving treatment for that problem. He comes today full weight-bearing in a sandal and having some discomfort but it is better. He has been doing about 10 hr a day of electrical stimulation. Pain Assessment Pain Assessment: 0-10 Pain Score: 3 Pain Location: Ankle Pain Frequency: Frequently MEDICATIONS He has a current medication list which includes the following prescription(s): alprazolam, cephalexin, vitamin d2, and hydrocodone-acetaminophen. REVIEW OF SYSTEMS Review of Systems Objective PHYSICAL EXAM BP 120/80 Ht 182.9 cm (6') Wt 103.4 kg (228 lb) BMI 30.92 kg/m?? Right foot/ankle Inspection Erythema: absent Effusion: absent Surgical scar/wound: present. The surgical scar/wound is: healed, no infection and well approximated (Lateral incision for the ankle fusion.). There is no drainage present. Deformity: absent [...] Right 3+ Vw Right ankle three views shows the ankle arthrodesis is progressing from prior films. No shift or change in the hardware with no lucency around the screws. Assessment/Plan Denis was seen today for pain and follow-up. Diagnoses and all orders for this visit: Primary osteoarthritis of right ankle - XR Ankle Right 3+ Vw Personal history of tobacco use, presenting hazards to health He is 6 weeks into electrical stimulation and is on treatment for his vitamin D deficiency for his delayed fusion of his right ankle. He also has decreased his smoking to only 1 or 2 cigarettes a day. He has to get on his tractor and drive to his friends house to get his cigarettes. The ankle is stable to stress with x-rays look like it is fusing nicely. His tenderness today is more is in his Achilles region than actually over the fusion site. PLAN Told uses tall walker boot for protection, continue using electrical stimulation and stands vitamin-D treatment. See me in 6 weeks with weight-bearing radiographs of the right ankle. We might need a CT for final confirmation at that time. Hari Mari Jr., MD documented in this [...] Diagnosis Primary osteoarthritis of right ankle- Primary Personal history of tobacco use, presenting hazards to health documented in this encounter Care Teams Fire Equipment Repairer Inspector Relationship Specialty Start Date End Date Sophia Damian MD [address] [place] [address] PCP - General 06/05/15 documented as of this encounter
--- OUTSIDE RECORDS SUMMARY | 2024-11-10 08:53 | XMS_ITS | Encounter Summary ---
Author Organization [facility] Address [address] [facility] [address] [place] [address] Care Team Providers Care Risk Tech Name Role Phone Sophia Damian MD Primary Care Provider + [phone] Encounter Details Date Type Department Care Team (Latest Contact Info) Description 03/23/2018 10:41 AM CDT - 03/23/2018 11:59 PM CDT Hospital Encounter [facility] [address] [address] Discharge Disposition: Discharge to home or self care Social History Tobacco Use Types Packs/Day Years Used Date Smoking Tobacco: Smoker, Current Status Unknown Smokeless Tobacco: Never Alcohol Use Standard Drinks/Week Comments Yes 0 (1 standard drink = 0.6 oz pur e alcohol) Sex and Gender Information Value Date Recorded Sex Assigned at Not on file 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 Hari Mari Jr., MD IMG XR PROCEDURES F inal Result documented in this encounter Visit Diagnoses Not on filedocumented in this encounter Care Teams Risk Tech Relationship Specialty Start Date End Date Sophia Damian MD [address] [place] [address] PCP - General 06/05/15 documented as of this encounter
--- OUTSIDE RECORDS SUMMARY | 2024-11-10 08:53 | XMS_ITS | Encounter Summary ---
Author Organization [facility] Address [address] [facility] [address] [place] [address] Care Team Providers Care Tourist Guide Name Role Phone Sophia Damian MD Primary Care Provider + [phone] Reason for Visit * Reason Onset Date Comments Test Results 03/26/2018 CT results Encounter Details Date Type Department Care Team (Late st Contact Info) Description 03/26/2018 Telephone [facility] [address] [address] [place] [address] [address] Test Results (CT results) Social History Tobacco Use Types Packs/Day Years Used Date Smoking Tobacco: Smoker, Current Status Unknown Smokeless Tobacco: Never Alcohol Use Standard Drinks/Week Comments Yes 0 (1 standard drink = 0.6 oz pur e alcohol) Sex and Gender Information Value Date Recorded Sex Assigned at Not on file 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 * Telephone Encounter - Hari Mari Jr., MD - 03/26/2018 4:46 PM CDT He will keep his appointment to see me in 1 month. * Telephone Encounter - Hari Mari Jr., MD - 03/26/2018 4:45 PM CDT I had a phone discussion with the patient and given the results of his CT that shows that he still has a partial fusion of the ankle joint but not complete as well as healing of 1 of the screws. Toldwould like to start electrostimulation to get more healing across the area to decrease his symptomatology. He says he feels better and is walking with only a cane at this time. He has 2 phone numberslisted but the only 1 that is functional is [phone]. Please remove the other phone number. * Telephone Encounter - Trenton Garcia - 03/26/2018 2:08 PM CDT Patient calling to get CT results. documented in this encounter Plan of Treatment Not on file documented as of this encounter Visit Diagnoses Not on filedocumented in this encounter Care Teams Tourist Guide Relationship Specialty Start Date End Date Sophia Damian MD [address] [place] [address] PCP - General 06/05/15 documented as of this encounter
--- OUTSIDE RECORDS SUMMARY | 2024-11-10 08:54 | XMS_ITS | Encounter Summary ---
Author Organization [facility] Address [address] [facility] [address] [place] [address] Care Team Providers Care Patient Registrar Name Role Phone Sophia Damian MD Primary Care Provider + [phone] Reason for Visit * Reason Comments Post-op Encounter Details Date Type Department Care Team (Latest Contact Info) Description 12/10/2017 10:30 AM INTERACTIVE ART DIRECTOR Office Visit [facility] [address] [address] [place]ia Narayan[place] [address] [place] [id number] Primary osteoarthritis of right ankle (Primary Dx) Social History Tobacco Use Types Packs/Day Years Used Date Smoking Tobacco: Smoker, Current Status Unknown Smokeless Tobacco: Never Alcohol Use Standard Drinks/Week Comments Yes 0 (1 standard drink = 0.6 oz pur e alcohol) Sex and Gender Information Value Date Recorded Sex Assigned at Not on file Legal Sex Male 3:53 PM INTERACTIVE ART DIRECTOR Gender Identity Not on file Sexual Orientation [...] - Inhaled Oxygen Concentration - - Weight 104.2 kg (229 lb 12.8 oz) 2017 11:08 AM INTERACTIVE ART DIRECTOR Height 182.9 cm (6') 12/10/2017 11:08 AM INTERACTIVE ART DIRECTOR Body Mass Index 31.17 12/10/2017 11:08 AM INTERACTIVE ART DIRECTOR documented in this encounter Ordered Prescriptions Prescription Sig Dispense Quantity Refills Last Filled Start Date End Date HYDROcodone-acetam inophen (NORCO) 5-325 mg per tabletIndications: Pain Take 1-2 tablets every 6 hours as needed for pain 30 tablet 12/10/2017 documented in this encounter Progress Notes * Natalia Narayanan PA - 12/10/2017 10:30 AM CST Images from the original note were not included. POST OP VISIT Subjective CHIEF COMPLAINT He had concerns including Post-op of the Right Ankle. HISTORY OF PRESENT ILLINESS Denis is seen in follow-up of his right ankle arthrodesis. Date of surgery was 09/16/2017. At his last office visit he was issued a walking boot with and was made weight-bearing as tolerated. He states he did not wear the boot because he did not feel like it helped with his pain. Additionally he has been trying to walk as much as possible because he felt that this would help with healing. He also admits to resumption of smoking cigarettes. MEDICATIONS He has a current medication list which includes the following prescription(s): alprazolam, cephalexin, and hydrocodone-acetaminophen. ALLERGIES He has No Known Allergies. PHYSICAL EXAM Right ankle has 2+ diffuse soft tissue edema. Incision is well healed. He can fan and flex his toes. He has well-preserved motion of the forefoot. The arthrodesis site is minimally tender. He has a 2+ dorsalis pedis pulse. Skin is otherwise intact throughout. REVIEW OF X-RAYS/STUDIES/LABS (IF ORDERED) XR Ankle Right 3+ Vw Three view x-ray of the right ankle taken today demonstrates an ankle arthrodesis with cannulated screws. The arthrodesis is not appear to be fully united. There is some halo affect around 2 of the screws distally without evidence of broken screws. Assessment/Plan Denis was seen today for post-op. Diagnoses and all orders for this visit: Primary osteoarthritis of right ankle - XR Ankle Right 3+ Vw Other orders - HYDROcodone-acetaminophen (NORCO) 5-325 mg per tablet; Take 1-2 tablets every 6 hours as needed for pain Plan Had a lengthy discussion with him about his ankle. I told him the purpose of the boot was not for pain relief but for stabilization and to facilitate the union of the arthrodesis site. I also discussed with him that smoking definitely works against this. I reviewed x-rays with him and have recommended to him that he go back into his walking boot. I also recommend that he keep his walking to necess jennifer walking only and to avoid walking for exercise as he has been doing. He was given a final prescription for hydrocodone. He will follow up here in 1 month for three view x-ray of the right ankle, weight-bearing. BRANDY Pickett Cosigned by Hari Mari Jr., MD at 12/10/2017 12:46 PM INTERACTIVE ART DIRECTOR RACTIVE ART DIRECTOR RACTIVE ART DIRECTOR documented in this encounter Plan of Treatment Not on file documented as of this encounter Procedures Procedure Name Priority Date/Time Associated Diagnosis Comments XR ANKLE RIGHT 3 OR MORE VIEWS Schedule Routine, Read Routine (OP Routine) 12/10/2017 11:26 AM INTERACTIVE ART DIRECTOR Primary osteoarthritis of right ankle documented in this encounter Results * XR Ankle Right 3+ Vw (12/10/2017 11:26 AM INTERACTIVE ART DIRECTOR) Anatomical Region Laterality Modality Lower Extremities, Ankle Right Radiogr aphic Imaging Narrative 12/10/2017 12:21 PM INTERACTIVE ART DIRECTOR Three view x-ray of the right ankle taken today demonstrates an ankle arthrodesis with cannulated screws. ??The arthrodesis is not appear to be fully united. ??There is some halo affect around 2 of the screws distally without evidence of broken screws. Hari Mari Jr., MD IMG XR PROCEDURES F inal Result documented in this encounter Visit Diagnoses Diagnosis Primary osteoarthritis of right ankle- Primary documented in this encounter Discontinued Medications Medication Sig Discontinue Reason Start Date End Da te oxyCODONE-acetaminophen (PERCOCET) 5-325 mg per tabletIndications:Pain Take 1-2 tablets every 4-6 hours as needed for pain Alternate therapy 10/15/2017 12/10/2017 documented as of this encounter Care Teams Patient Registrar Relationship Specialty Start Date End Date Sophia Damian MD [address] [place] [address] PCP - General 06/05/15 documented as of this encounter
--- OUTSIDE RECORDS SUMMARY | 2024-11-10 08:54 | XMS_ITS | Encounter Summary ---
Author Organization [facility] Address [address] [facility] [address] [place] [address] Care Team Providers Care Laborer Cheesemaking Name Role Phone Sophia Damian MD Primary Care Provider + [phone] Encounter Details Date Type Department Care Team (Latest Contact Info) Description 11/05/2017 2:00 PM STORAGE WORKER - 11/05/2017 11:59 PM STORAGE WORKER Hospital Encounter [facility] [address] [address] Discharge Disposition: Discharge to home or self care Social History Tobacco Use Types Packs/Day Years Used Date Smoking Tobacco: Smoker, Current Status Unknown Smokeless Tobacco: Never Alcohol Use Standard Drinks/Week Comments Yes 0 (1 standard drink = 0.6 oz pur e alcohol) Sex and Gender Information Value Date Recorded Sex Assigned at Not on file Legal Sex Male 3:53 PM STORAGE WORKER Gender Identity Not on file Sexual [...] (four) times a day. 40 capsule 10/01/2017 oxyCODONE-acetami nophen (PERCOCET) 5-325 mg per tabletIndications :Pain Take 1-2 tablets every 4-6 hours as needed for pain 50 tablet 10/15/2017 12/10/2017 documented as of this encounter Discharge Disposition Disposition Code Departure Means Destination Discharge to home or self care documented in this encounter Plan of Treatment Not on file documented as of this encounter Procedures Procedure Name Priority Date/Time Associated Diagnosis Comments XR ANKLE RIGHT 3 OR MORE VIEWS Schedule Routine, Read Routine (OP Routine) 11/05/2017 2:49 PM STORAGE WORKER Primary osteoarthritis of right ankle documented in this encounter Results * XR Ankle Right 3 or More Views (11/05/2017 2:49 PM STORAGE WORKER) Anatomical Region Laterality Modality Lower Extremities, Ankle Right Radiogr aphic Imaging Narrative 11/05/2017 4:31 PM STORAGE WORKER My interpretation of his x-rays today: ??Three views of his right ankle show that his fusion is healing nicely. ??There is obliteration of the mortise joint at the fibular side as well as across the tibiotalar joint. ?? Medially, there is still a very slight clear space as expected. ??Overall, the fusion appears to be healing nicely. Hari Mari Jr., MD IMG XR PROCEDURES F inal Result documented in this encounter Visit Diagnoses Not on filedocumented in this encounter Care Teams Laborer Cheesemaking Relationship Specialty Start Date End Date Sophia Damina MD [address] [place] [address] PCP - General 06/05/15 documented as of this encounter
--- OUTSIDE RECORDS SUMMARY | 2024-11-10 08:54 | XMS_ITS | Encounter Summary ---
Author Organization [facility] Address [address] [facility] [address] [place] [address] Care Team Providers Care Alterations Expert Name Role Phone Sophia Damian MD Primary Care Provider [phone] Reason for Visit * Reason Comments Post-op 09/16/17 Post-op Encounter Details Date Type Department Care Team (Latest Contact Info) Description 10/01/2017 2:00 PM USER INTERFACE ENGINEER Office Visit [facility] [address] [address] [place] [address] [address] Primary osteoarthritis of right ankle (Primary Dx); Smoker Social History Tobacco Use Types Packs/Day Years Used Date Smoking Tobacco: Smoker, Current Status Unknown Smokeless Tobacco: Never Alcohol Use Standard Drinks/Week Comments Yes 0 (1 standard drink = 0.6 oz pur e alcohol) Sex and Gender Information Value Date Recorded Sex Assigned at Not on file Legal Sex Male 3:53 PM USER INTERFACE ENGINEER Gender Identity Not on file Sexual [...] - Inhaled Oxygen Concentration - - Weight 97.1 kg (214 lb) 10/01/2017 2:06 PM USER INTERFACE ENGINEER Height 182.9 cm (6') 10/01/2017 2:06 PM USER INTERFACE ENGINEER Body Mass Index 29.02 10/01/2017 2:06 PM USER INTERFACE ENGINEER documented in this encounter Ordered Prescriptions Prescription Sig Dispense Quantity Refills Last Filled Start Date End Date cephalexin (KEFLEX) 250 mg capsule Take 1 capsule (250 mg total) by mouth 4 (four) times a day. 40 capsule 10/01/2017 oxyCODONE-acetamin ophen (PERCOCET) 5-325 mg per tabletIndications: Pain Take 1-2 tablets every 4-6 hours as needed for pain 50 tablet 10/01/2017 7 documented in this encounter Progress Notes * Rishi Mari Jr., MD - 10/01/2017 2:00 PM CSTAssociated Order(s): ORTHOPEDIC INJURY TREATMENT - FRACTURE DISLOCATION Post-Procedure Diagnose(s): Primary osteoarthritis of right ankle Images from the original note were not included. FOLLOW UP VISIT Subjective CHIEF COMPLAINT He had concerns including Post-op of the Right Ankle and Post-op (09/16/17). HISTORY OF PRESENT ILLNESS He is seen for follow-up for his right ankle arthrodesis done on 09/16/2017. He has been nonweightbearing in a splint. Pain Assessment Pain Assessment: 0-10 Pain Score: 8 Pain Location: Ankle Pain Orientation: Right Pain Descriptors: Sharp, Shooting, Numbness Pain Frequency: Constant/continuous Pain Onset: Ongoing Clinical Progression: Gradually improving Aggravating Factors: Bending Result of Injury: No Work-Related Injury: No Patient's Stated Pain Goal: No pain Pain Interventions: Rest MEDICATIONS He has a current medication list which includes the following prescription(s): alprazolam, oxycodone-acetaminophen, cephalexin, and oxycodone-acetaminophen. REVIEW OF SYSTEMS Review of Systems Objective PHYSICAL EXAM Ht 182.9 cm (6') Wt 97.1 kg (214 lb) BMI 29.02 kg/m?? Ortho Exam He has a moderate swelling around his incisional area with a large blister in the distal aspect that is ruptured. No evidence of infection. He also has a large posterior blister that is ruptured. He has subjective numbness over the sural nerve distribution. No evidence of a compartmental syndrome. REVIEW OF X-RAYS/STUDIES/LABS Assessment/Plan Denis was seen today for post-op and post-op. Diagnoses and all orders for this visit: Primary osteoarthritis of right ankle Smoker Other orders - Orthopedic Injury Treatment - oxyCODONE-acetaminophen (PERCOCET) 5-325 mg per tablet; Take 1-2 tablets every 4-6 hours as needed for pain - cephalexin (KEFLEX) 250 mg capsule; Take 1 capsule (250 mg total) by mouth 4 (four) times a day. He is 2 weeks follow-up for his right ankle arthrodesis. He has some swelling and a blister in the distal aspect of the incision. He has subjective numbness of the sural nerve distribution. Orthopedic Injury Treatment Date/Time: 10/01/2017 2:58 PM Performed by: RISHI MARI JR. Authorized by: RISHI MARI JR. A time out verifies correct patient, procedure, equipment, developer support engineer and site/side marked as required: Injury: Injury location: Ankle Location details: Right ankle Pre-procedure assessment: Distal perfusion: normal Neurological function: diminished Range of motion: reduced Procedure details: Selections made in this section will also lock the Injury type section above.: Immobilization: Cast Splint type: Short leg Supplies used: Fiberglass Post-procedure assessment: Distal perfusion: normal Neurological function: absent Range of motion: unchanged Patient tolerance: Patient tolerated the procedure well with no immediate complications PLAN Placed into a new short-leg nonweightbearing cast. His sutures were left in place. Given prescription of Keflex just as a preventative measure and renewal for his Percocet. See me in 2 weeks, remove the cast and probably remove the sutures. Recommended continued smoking cessation. Rishi Mari MD INTERFACE ENGINEER documented in this encounter Plan of Treatment Not on file documented as of this encounter Procedures Procedure Name Priority Date/Time Associated Diagnosis Comments ORTHOPEDIC INJURY TREATMENT - FRACTURE DISLOCATION Routine 10/01/2017 2:00 PM USER INTERFACE ENGINEER Primary osteoarthritis of right ankle documented in this encounter Results * Orthopedic Injury Treatment (10/01/2017 2:00 PM USER INTERFACE ENGINEER) Narrative Rishi Mari Jr., MD - 10/01/2017 2:00 PM USER INTERFACE ENGINEER Rishi Mari Jr., MD ? 10/01/2017 ??3:04 PM Orthopedic Injury Treatment Date/Time: 10/01/2017 2:58 PM Performed by: RISHI MARI JR. Authorized by: RISHI MARI JR. A time out verifies correct patient, procedure, equipment, developer support engineer and site/side marked as required: Injury: ??Injury location: ??Ankle ??Location details: ??Right ankle Pre-procedure assessment: ??Distal perfusion: normal ?Neurological function: diminished ?Range of motion: reduced ?? Procedure details: Selections made in this section will also lock the Injury type section above.: ??Immobilization: ??Cast ??Splint type: ??Short leg ??Supplies used: ??Fiberglass Post-procedure assessment: ??Distal perfusion: normal ?Neurological function: absent ?Range of motion: unchanged ?Patient tolerance: ??Patient tolerated the procedure well with no immediate complications us Rishi Mari Jr., MD IN CLINIC/BEDSIDE O RDERABLES Final Result documented in this encounter Visit Diagnoses Diagnosis Primary osteoarthritis of right ankle- Primary Smoker Tobacco use disorder documented in this encounter Care Teams Alterations Expert Relationship Specialty Start Date End Date Sophia Damian MD [address] [place] [address] PCP - General 06/05/15 documented as of this encounter
--- OUTSIDE RECORDS SUMMARY | 2024-11-10 08:54 | XMS_ITS | Encounter Summary ---
Author Organization [facility] Address [address] [facility] [address] [place] [address] Care Team Providers Care Blending Tank Tender Name Role Phone Sophia Damian MD Primary Care Provider + [phone] Reason for Visit * Reason Comments Pain Follow-up Encounter Details Date Type Department Care Team (Latest Contact Info) Description 01/14/2018 10:30 AM LOCATOR SPECIALIST Office Visit [facility] [address] [address] Natalia Narayanan [place] [address] [place] [address] [address] [place] [address] Primary osteoarthritis of right ankle (Primary Dx) Social History Tobacco Use Types Packs/Day Years Used Date Smoking Tobacco: Smoker, Current Status Unknown Smokeless Tobacco: Never Alcohol Use Standard Drinks/Week Comments Yes 0 (1 standard drink = 0.6 oz pur e alcohol) Sex and Gender Information Value Date Recorded Sex Assigned at Not on file Legal Sex Male 3:53 PM LOCATOR SPECIALIST Gender Identity Not on file Sexual [...] - Inhaled Oxygen Concentration - - Weight 98.4 kg (217 lb) 01/14/2018 10:35 AM LOCATOR SPECIALIST Height 182.9 cm (6') 01/14/2018 10:35 AM LOCATOR SPECIALIST Body Mass Index 29.43 01/14/2018 10:35 AM LOCATOR SPECIALIST documented in this encounter Progress Notes * Natalia Narayanan PA - 01/14/2018 10:30 AM CST Images from the original note were not included. FOLLOW UP VISIT Subjective CHIEF COMPLAINT He had concerns including Pain and Follow-up of the Right Ankle. HISTORY OF PRESENT ILLINESS Denis is seen in follow-up of his right ankle arthrodesis. This is a revision procedure that was done 09/12/2017. He is in a walking boot. He states the boot feels like it is irritating the inner part of his ankle. He continues to smoke 1 pack every 3-4 days. MEDICATIONS He has a current medication list which includes the following prescription(s): alprazolam, cephalexin, and hydrocodone-acetaminophen. ALLERGIES He has No Known Allergies. Review [...] decreased concentration and hallucinations. PHYSICAL EXAM Exam of the right ankle demonstrates less swelling. Incisions are all well healed. The lateral and anterior aspect of the ankle are nontender. He does have 1 focal area of tenderness on the medial aspect of the ankle. He can flex extend his toes and has a 2+ dorsalis pedis pulse. He complains of some intermittent numbness on the dorsum of his foot that is been present since surgery. REVIEW OF X-RAYS/STUDIES/LABS (IF ORDERED) XR Ankle Right 3+ Vw Right ankle three views demonstrates and a ankle arthrodesis he held with 3 cannulated screws. No evidence of hardware failure. Complete consolidation is difficult to assess. Assessment/Plan Denis was seen today for pain and follow-up. Diagnoses and all orders for this visit: Primary osteoarthritis of right ankle - XR Ankle Right 3+ Vw Plan Denis clinically appears to have some improvement with his ankle, he does still have a tender areaon the medial aspect which will need to be observed. He feels the boot is irritating the ankle medially, and given there is appears to be progression in the consolidation of the arthrodesis and no hardware failure he will be allowed to walk in a normal shoe. I told her to keep his activities light and not to do walking for exercise or other excessive activities. I told him if he had increased pain the ankle he should off load with a cane or crutch. He will follow up in 4 weeks for another x-rayand clinical exam. There is still tenderness at around the arthrodesis site a CT scan may be considered to assess the fusion. BRANDY Pickett TOR SPECIALIST documented in this encounter Plan of Treatment Not on file documented as of this encounter Procedures Procedure Name Priority Date/Time Associated Diagnosis Comments XR ANKLE RIGHT 3 OR MORE VIEWS Schedule Routine, Read Routine (OP Routine) 01/14/2018 10:48 AM LOCATOR SPECIALIST Primary osteoarthritis of right ankle documented in this encounter Results * XR Ankle Right 3+ Vw (01/14/2018 10:48 AM LOCATOR SPECIALIST) Anatomical Region Laterality Modality Lower Extremities, Ankle Right Radiogr aphic Imaging Narrative 01/14/2018 12:05 PM LOCATOR SPECIALIST Right ankle three views demonstrates and a ankle arthrodesis he held with 3 cannulated screws. ??No evidence of hardware failure. ??Complete consolidation is difficult to assess. Hari Mari Jr., MD IMG XR PROCEDURES F inal Result documented in this encounter Visit Diagnoses Diagnosis Primary osteoarthritis of right ankle- Primary documented in this encounter Care Teams Blending Tank Tender Relationship Specialty Start Date End Date Sophia Damian MD [address] [place] [address] PCP - General 06/05/15 documented as of this encounter
--- OUTSIDE RECORDS SUMMARY | 2024-11-10 08:54 | XMS_ITS | Encounter Summary ---
Author Organization [facility] Address [address] [facility] [address] [place] [address] Care Team Providers Care Seismic Prospecting Observer Helper Name Role Phone Sophia Damian MD Primary Care Provider + [phone] Encounter Details Date Type Department Care Team (Late st Contact Info) Description 07/29/2017 Telephone [facility] Orthopedics and Sports Medicine [address] [place] [address] [address] [place] [address] Mikala Hull MA Social History Tobacco Use Types Packs/Day Years Used Date Smoking Tobacco: Smoker, Current Status Unknown Alcohol Use Standard Drinks/Week Comments Yes 0 (1 standard drink = 0.6 oz pur e alcohol) Sex and Gender Information Value Date Recorded Sex Assigned at Not on file Legal Sex Male 3:53 PM GRINDING WHEEL OPERATOR Gender Identity Not on file Sexual Orientation Not on file documented as of this encounter Miscellaneous Notes * Telephone Encounter - Mikala Hull MA - 07/29/2017 9:20 AM CDT Patient notified of inj appt on 07/30/17 @830 at [facility] and also dr nicholas appt on 08/06/17 at 1230 at [facility] patient also to come picker feeder xrays disc at our office, the patients referral info was [facility] documented in this encounter Plan of Treatment Not on file documented as of this encounter Visit Diagnoses Not on filedocumented in this encounter Care Teams Seismic Prospecting Observer Helper Relationship Specialty Start Date End Date Sophia Damian MD [address] [place], [place] [id number] PCP - General 06/05/15 documented as of this encounter
--- OUTSIDE RECORDS SUMMARY | 2024-11-10 08:54 | XMS_ITS | Encounter Summary ---
Author Organization [facility] Address [address] [facility] [address] [place] [address] Care Team Providers Care Branch Chief Name Role Phone Sophia Damian MD Primary Care Provider + [phone] Encounter Details Date Type Department Care Team (Latest Contact Info) Description 12/10/2017 11:12 AM RESOLUTION REP - 12/10/2017 11:59 PM RESOLUTION REP Hospital Encounter [facility] [address] [address] Discharge Disposition: Discharge to home or self care Social History Tobacco Use Types Packs/Day Years Used Date Smoking Tobacco: Smoker, Current Status Unknown Smokeless Tobacco: Never Alcohol Use Standard Drinks/Week Comments Yes 0 (1 standard drink = 0.6 oz pur e alcohol) Sex and Gender Information Value Date Recorded Sex Assigned at Not on file Legal Sex Male 3:53 PM RESOLUTION REP Gender Identity Not on file Sexual Orientation [...] Read Routine (OP Routine) 12/10/2017 11:26 AM RESOLUTION REP Primary osteoarthritis of right ankle documented in this encounter Results * XR Ankle Right 3+ Vw (12/10/2017 11:26 AM RESOLUTION REP) Anatomical Region Laterality Modality Lower Extremities, Ankle Right Radiogr aphic Imaging Narrative 12/10/2017 12:21 PM RESOLUTION REP Three view x-ray of the right ankle [...] on filedocumented in this encounter Care Teams Branch Chief Relationship Specialty Start Date End Date Sophia Damian MD [address] [place] [address] PCP - General 06/05/15 documented as of this encounter
--- OUTSIDE RECORDS SUMMARY | 2024-11-10 08:54 | XMS_ITS | Encounter Summary ---
Author Organization [facility] Address [address] [place] [address] Care Team Providers Care Sliver Former Name Role Phone Sophia Damian MD Primary Care Provider + [phone] Encounter Details Date Type Department Care Team (Late st Contact Info) Description 09/23/2017 Telephone [facility] [address] [address] Shannon Morillo Social History Tobacco Use Types Packs/Day Years Used Date Smoking Tobacco: Smoker, Current Status Unknown Smokeless Tobacco: Never Alcohol Use Standard Drinks/Week Comments Yes 0 (1 standard drink = 0.6 oz pur e alcohol) Sex and Gender Information Value Date Recorded Sex Assigned at Not on file Legal Sex Male 3:53 PM ACID SPLICER Gender Identity Not on file Sexual Orientation Not on file Occupation Industry Job Start Date Job End Date unemployed Not on file Not on file Not on file documented as of this encounter Ordered Prescriptions Prescription Sig Dispense Quantity Refills Last Filled Start Date End Date oxyCODONE-acetamin ophen (PERCOCET) 5-325 mg per tabletIndications: Pain Take 1-2 tablets every 4-6 hours as needed for pain 50 tablet 09/24/2017 7 documented in this encounter Miscellaneous Notes * Telephone Encounter - Hari Mari Jr., MD - 09/24/2017 7:52 AM ACID SPLICER Percocet 5/325 mg refilled. SPLICER documented in this encounter Plan of Treatment Not on file documented as of this encounter Visit Diagnoses Not on filedocumented in this encounter Care Teams Sliver Former Relationship Specialty Start Date End Date Sophia Damian MD [address] [place], [place] [id number] PCP - General 06/05/15 documented as of this encounter
--- OUTSIDE RECORDS SUMMARY | 2024-11-10 08:54 | XMS_ITS | Encounter Summary ---
Author Organization [facility] Address [address] [place] [address] Care Team Providers Care Set Up Operator Name Role Phone Sophia Damian MD Primary Care Provider + [phone] Reason for Referral * Diagnostic Imaging (Routine) - Closed Specialty Diagnoses / Procedures Referred By Contac t Referred To Contact Diagnoses Arthritis of right ankle Procedures Fluoro Guided Injection Ankle Right Alexandr Lo MD Phone: tel: fax: [address] [address] Referral ID Status Reason Start Date Expiration Date Visits Re quested Visits Authorized [id number] Closed 07/28/2017 01/24/2018 1 1 Encounter Details Date Type Department Care Team (Late st Contact Info) Description 07/30/2017 8:31 AM CDT - 07/30/2017 11:59 PM CDT Hospital Encounter [facility] INTERIM Alexandr Lo MD [address] [place] [address] [address] [facility] [address] [place] [address] Arthritis of right ankle Discharge Disposition: Discharge to home or self care Social History Tobacco Use Types Packs/Day Years Used Date Smoking Tobacco: Smoker, Current Status Unknown Alcohol Use Standard Drinks/Week Comments Yes 0 (1 standard drink = 0.6 oz pur e alcohol) Sex and Gender Information Value Date Recorded Sex Assigned at Not on file 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 documented as of this encounter Discharge Disposition Disposition Code Departure Means Destination Discharge to home or self care documented in this encounter Plan of Treatment Not on file documented as of this encounter Procedures Procedure Name Priority Date/Time Associated Diagnosis Comments FLUORO GUIDED INJECTION ANKLE RIGHT Schedule Routine, Read Routine (OP Routine) 07/30/2017 2:20 PM CDT Arthritis of right ankle documented in this encounter Results * Fluoro Guided Injection Ankle Right (07/30/2017 2:20 PM CDT) Anatomical Region Laterality Modality Ankle Right Radiographic Cher ging 07/30/2017 2:20 PM CDT Narrative 07/30/2017 2:20 PM CDT XR Injection Ankle R ?Acc#: ??[id number] DATE OF EXAM: ??Jul 30 2017 ?? XR Injection Ankle R ?? HISTORY: Osteoarthritis of the right ankle. ??Ankle pain and swelling.. TECHNIQUE: The procedure, risk and potential complications were reviewed with the patient and informed consent for the procedure obtained. The right ankle was identified and confirmed with the patient. ??A point of entry was marked on the patient's skin along the anterior lateral aspect of the ankle joint.. ??A timeout procedure was performed. The skin was prepped and draped in the usual sterile fashion. ??2 mL's of 1% lidocaine was administered for local anesthesia as an anterior lateral approach to the ankle joint was performed. ??A 22-gauge needle was advanced into the ankle joint and less than 1 mL of Omnipaque 240 was injected to confirm intra-articular location of the needle tip. Subsequently 80 mg of Depo-Medrol and 3 mL's of 1% lidocaine was injected into the right ankle joint under fluoroscopic guidance.. Patient tolerated the procedure well leaving the department in stable unchanged condition. The customer resource specialist radiograph demonstrates marked narrowing of the lateral half of the ankle joint space with focal sclerotic changes along the central and lateral talar dome reflective of osteoarthritis. ??There is mild soft tissue swelling laterally. IMPRESSION: INJECTION OF 80 MG OF DEPO-MEDROL AND 3 ML'S OF 1% LIDOCAINE INTO THE RIGHT ANKLE JOINT UNDER FLUOROSCOPIC GUIDANCE. COMMENT FLUOROSCOPY TIME 0.3 MINUTES. Electronically signed by: Carly Lindsey M.D. Interpreting Physician: ??CARLY LINDSEY M.D. ??Read on: ??Jul 30 2017 ??9:56A Transcribed by: ??PSC ??On: Jul 30 2017 ??9:53A Approved Electronically by: ??CARLY LINDSEY M.D. ??on: ??Jul 30 2017 ??9:53A Ordering DR: ALEXANDR LO Attending DR: ALEXANDR LO Attending: ??ALEXANDR LO Requesting: ??ALEXANDR LO Requesting Fax: ??[phone] Attending Fax: ??[phone] Attending ID: ??[id number] Requesting ID: ??[id number] Report To 1 ID: ??[id number] Report To 1 Name: ??ALEXANDR LO Report To 1 FAX: ??[phone] [employer] Order #: ??[id number] Procedure Note Miscellaneous, Not In File / Provider, MD Josefina - 07/30/2017 XR Injection Ankle R [id number] Acc#: [id number] DATE OF EXAM: Jul 30 2017 XR Injection Ankle R [id number] HISTORY: Osteoarthritis of the right ankle. Ankle pain and swelling.. TECHNIQUE: The procedure, risk and potential complications were reviewed with the patient and informed consent for the procedure obtained. The right ankle was identified and confirmed with the patient. A point of entry was marked on the patient's skin along the anterior lateral aspect of the ankle joint.. A timeout procedure was performed. The skin was prepped and draped in the usual sterile fashion. 2 mL's of 1% lidocaine was administered for local anesthesia as an anterior lateral approach to the ankle joint was performed. A 22-gauge needle was advanced into the ankle joint and less than 1 mL of Omnipaque 240 was injected to confirm intra-articular location of the needle tip. Subsequently 80 mg of Depo-Medrol and 3 mL's of 1% lidocaine was injected into the right ankle joint under fluoroscopic guidance.. Patient tolerated the procedure well leaving the department in stable unchanged condition. The customer resource specialist radiograph demonstrates marked narrowing of the lateral half of the ankle joint space with focal sclerotic changes along the central and lateral talar dome reflective of osteoarthritis. There is mild soft tissue swelling laterally. IMPRESSION: INJECTION OF 80 MG OF DEPO-MEDROL AND 3 ML'S OF 1% LIDOCAINE INTO THE RIGHT ANKLE JOINT UNDER FLUOROSCOPIC GUIDANCE. COMMENT FLUOROSCOPY TIME 0.3 MINUTES. Electronically signed by: Carly Lindsey M.D. Interpreting Physician: CARLY LINDSEY M.D. Read on: Jul 30 2017 9:56A Transcribed by: [facility] On: Jul 30 2017 9:53A Approved Electronically by: CARLY LINDSEY M.D. on: Jul 30 2017 9:53A Ordering DR: ALEXANDR OL Attending DR: ALEXANDR LO Attending: ALEXANDR LO Requesting: ALEXANDR LO Requesting Attending Attending ID: [id number] Requesting ID: [id number] Report To 1 ID: [id number] Report To 1 Name: ALEXANDR LO Report To 1 FAX: [phone] [facility] Order #: [id number] Alexandr Lo MD IM FLUOROSCOPY PROCEDURES F inal Result documented in this encounter Visit Diagnoses Diagnosis Arthritis of right ankle documented in this encounter Care Teams Set Up Operator Relationship Specialty Start Date End Date Sophia Damian MD [address] [place] [address] PCP - General 06/05/15 documented as of this encounter
--- OUTSIDE RECORDS SUMMARY | 2024-11-10 08:54 | XMS_ITS | Encounter Summary ---
Author Organization [facility] Address [address] [facility] [facility] [address] [place] [address] Care Team Providers Care Note Taker Name Role Phone Sophia Damian MD Primary Care Provider + [phone] Reason for Visit * Reason Comments Post-op 09-16-17 Right ankle arthrodesis with augment graft. Post-op Encounter Details Date Type Department Care Team (Latest Contact Info) Description 10/15/2017 2:15 PM GUITAR PLAYER Office Visit [facility] [address] [address] Rishi Mari Jr., [place] [id number] [place] [address] Primary osteoarthritis of right ankle (Primary Dx) Social History Tobacco Use Types Packs/Day Years Used Date Smoking Tobacco: Smoker, Current Status Unknown Smokeless Tobacco: Never Alcohol Use Standard Drinks/Week Comments Yes 0 (1 standard drink = 0.6 oz pur e alcohol) Sex and Gender Information Value Date Recorded Sex Assigned at Not on file Legal Sex Male 3:53 PM GUITAR PLAYER Gender Identity Not on file Sexual Orientation [...] - Inhaled Oxygen Concentration - - Weight 82.6 kg (182 lb) 10/15/2017 2:13 PM GUITAR PLAYER Height 182.9 cm (6') 10/15/2017 2:13 PM GUITAR PLAYER Body Mass Index 24.68 10/15/2017 2:13 PM GUITAR PLAYER documented in this encounter Ordered Prescriptions Prescription Sig Dispense Quantity Refills Last Filled Start Date End Date oxyCODONE-acetamin ophen (PERCOCET) 5-325 mg per tabletIndications: Pain Take 1-2 tablets every 4-6 hours as needed for pain 50 tablet 10/15/2017 8 documented in this encounter Progress Notes * Rishi Mari Jr., MD - 10/15/2017 2:15 PM CSTAssociated Order(s): ORTHOPEDIC INJURY TREATMENT - FRACTURE DISLOCATION Post-Procedure Diagnose(s): Primary osteoarthritis of right ankle Images from the original note were not included. FOLLOW UP VISIT Subjective CHIEF COMPLAINT He had concerns including Post-op of the Right Ankle and Post-op (09-16-17 Right ankle arthrodesis with augment graft.). HISTORY OF PRESENT ILLNESS He is seen for follow-up for his right ankle arthrodesis done on 09/16/2017. He has been in a short-leg nonweightbearing cast. His incision was not be completely healed last time secondary to some blistering. He also had subjective numbness of the saphenous nerve. Pain Assessment Pain Assessment: 0-10 Pain Score: 6 Pain Location: Ankle Pain Orientation: Right Pain Descriptors: Throbbing, Aching Pain Frequency: Constant/continuous Pain Onset: Ongoing Date Pain First Started: 10/15/17 Clinical Progression: Gradually improving Aggravating Factors: Standing, Walking Result of Injury: No Work-Related Injury: No Pain Interventions: Medication (See MAR), Rest MEDICATIONS He has a current medication list which includes the following prescription(s): alprazolam, cephalexin, and oxycodone-acetaminophen. REVIEW OF SYSTEMS Review of Systems Objective PHYSICAL EXAM Ht 182.9 cm (6') Wt 82.6 kg (182 lb) BMI 24.68 kg/m?? Ortho Exam His cast was in good position. The cast was removed. The incision is healed and sutures removed. Still has numbness on the dorsal aspect of his foot. REVIEW OF X-RAYS/STUDIES/LABS Assessment/Plan Denis was seen today for post-op and post-op. Diagnoses and all orders for this visit: Primary osteoarthritis of right ankle Other orders - Orthopedic Injury Treatment - oxyCODONE-acetaminophen (PERCOCET) 5-325 mg per tablet; Take 1-2 tablets every 4-6 hours as needed for pain He is 1 month follow-up for his right ankle arthrodesis. The incision is healed and sutures removed. Still has numbness on the dorsal aspect of the foot. Orthopedic Injury Treatment Date/Time: 10/15/2017 2:52 PM Performed by: RISHI MARI JR. Authorized by: RISHI MARI JR. A time out verifies correct patient, procedure, equipment, underwriting support manager and site/side marked as required: Injury: Injury location: Ankle Location details: Right ankle Pre-procedure assessment: Distal perfusion: normal Neurological function: diminished Range of motion: reduced Procedure details: Selections made in this section will also lock the Injury type section above.: Immobilization: Cast Splint type: Short leg Supplies used: Fiberglass Post-procedure assessment: Distal perfusion: normal Neurological function: diminished Range of motion: unchanged Patient tolerance: Patient tolerated the procedure well with no immediate complications PLAN Is placed into a new short-leg cast nonweightbearing. See me in 3 weeks, remove the cast and get x-rays of his right ankle. Hopefully allow protected weight- bearing at that time. Rishi Mari Jr., MD AR PLAYER documented in this encounter Plan of Treatment Not on file documented as of this encounter Procedures Procedure Name Priority Date/Time Associated Diagnosis Comments ORTHOPEDIC INJURY TREATMENT - FRACTURE DISLOCATION Routine 10/15/2017 2:15 PM GUITAR PLAYER Primary osteoarthritis of right ankle documented in this encounter Results * Orthopedic Injury Treatment (10/15/2017 2:15 PM GUITAR PLAYER) Narrative Rishi Mari Jr., MD - 10/15/2017 2:15 PM GUITAR PLAYER Rishi Mari Jr., MD ? 10/15/2017 ??2:54 PM Orthopedic Injury Treatment Date/Time: 10/15/2017 2:52 PM Performed by: RISHI MARI JR. Authorized by: RISHI MARI JR. A time out verifies correct patient, procedure, equipment, underwriting support manager and site/side marked as required: Injury: ??Injury location: ??Ankle ??Location details: ??Right ankle Pre-procedure assessment: ??Distal perfusion: normal ?Neurological function: diminished ?Range of motion: reduced ?? Procedure details: Selections made in this section will also lock the Injury type section above.: ??Immobilization: ??Cast ??Splint type: ??Short leg ??Supplies used: ??Fiberglass Post-procedure assessment: ??Distal perfusion: normal ?Neurological function: diminished ?Range of motion: unchanged ?Patient tolerance: ??Patient [...] every 4-6 hours as needed for pain Duplicate order 10/01/2017 10/15/2017 oxyCODONE-acetaminophen (PERCOCET) 5-325 mg per tabletIndications:Pain Take 1-2 tablets every 4-6 hours as needed for pain Reorder 09/24/2017 10/15/2017 documented as of this encounter Care Teams Note Taker Relationship Specialty Start Date End Date Sophia Damian MD [address] [place] [address] PCP - General 06/05/15 documented as of this encounter
--- OUTSIDE RECORDS SUMMARY | 2024-11-10 08:54 | XMS_ITS | Encounter Summary ---
Author Organization [facility] Address [address] [place] [address] Care Team Providers Care Locker Attendant Name Role Phone Sophia Damian MD Primary Care Provider + [phone] Reason for Visit * Reason Comments Pain * Consultation (Routine) - Closed Specialty Diagnoses / Procedures Referred By Contac t Referred To Contact Orthopedic Surgery Diagnoses Osteoarthritis of right foot, unspecified osteoarthritis type Alexandr Lo MD Phone: tel: fax: Hari Mari Jr., MD Phone: tel: fax: Referral ID Status Reason Start Date Expiration Date V isits Requested Visits Authorized [id number] Closed Specialty Services Required 04/29/2017 10/26/2017 1 1 Encounter Details Date Type Department Care Team (Latest Contact Info) Description 08/06/2017 1:00 PM CDT [facility] [address] [facility] [address] [place] [address] Hari Mari Jr., [place] [id number] [place] [address] [address] [place] [address] Primary osteoarthritis of right ankle (Primary Dx); Smoker Social History Tobacco Use Types Packs/Day Years Used Date Smoking Tobacco: Smoker, Current Status Unknown Smokeless Tobacco: Never Alcohol Use Standard Drinks/Week Comments Yes 0 (1 standard drink = 0.6 oz pur e alcohol) Sex and Gender Information Value Date Recorded Sex Assigned at Not on file 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 Gender Identity Not on file Sexual Orientation Not on file Occupation Industry Job Start Date Job End Date unemployed Not on file Not on file Not on file documented as of this encounter Last Filed Vital Signs Vital Sign Reading Time Taken Comments Blood Pressure 122/84 08/06/2017 1:15 PM CDT Pulse - - Temperature - - Respiratory Rate - - Oxygen Saturation - - Inhaled Oxygen Concentration - - Weight 96.6 kg (213 lb) 08/06/2017 1:15 PM CDT Height 182.9 cm (6') 08/06/2017 1:15 PM CDT Body Mass Index 28.89 08/06/2017 1:15 PM CDT documented in this encounter Progress Notes * Hari Mari MD - 08/06/2017 1:00 PM CDT Images from the original note were not included. NEW PATIENT VISIT Subjective CHIEF COMPLAINT Denis Ca was seen today for consultation requested by Sophia Damian MD for Pain of the Right Ankle HISTORY OF PRESENT ILLNESS He has pain and tenderness around his right ankle. He has had some injuries in the past but no any significant or major injuries. He is definitely made worse with activities. He has had some cortisone injections that make it better but the problem has recurred. He just had an injection last week. Tenderness is globally around the ankle. 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 Pain Assessment Pain Assessment: 0-10 Pain Score: 10 - Worst possible pain Pain Location: Ankle Pain Orientation: Right Pain Descriptors: Sharp, Aching Pain Frequency: Constant/continuous Pain Onset: Ongoing Date Pain First Started: 08/06/16 Clinical Progression: Gradually worsening Aggravating Factors: Bending Result of Injury: Yes (pt fell on ankle) Work-Related Injury: No Patient's Stated Pain Goal: No pain Pain Interventions: Rest PAST MEDICAL HISTORY He has a past medical history of Malignant neoplasm of colon (CMS/HCC) and Rheumatoid arthritis (CMS/HCC). PAST SURGICAL HISTORY He has no past surgical history on file. MEDICATIONS He has a current medication list which includes the following prescription(s): alprazolam. ALLERGIES He has No Known Allergies. SOCIAL HISTORY He reports that he has been smoking. He has never used smokeless tobacco. He reports that he drinksalcohol. FAMILY HISTORY His family history is not on file. REVIEW OF SYSTEMS Review of Systems Constitutional: Negative for chills and fever. HENT: Negative for hearing loss. Eyes: Negative for visual disturbance. Respiratory: Negative for cough and shortness of breath. Cardiovascular: Negative for chest pain and palpitations. Gastrointestinal: Negative for constipation, diarrhea, nausea and vomiting. Endocrine: Negative for cold intolerance, heat intolerance, polydipsia and polyuria. Genitourinary: Negative for difficulty urinating and dysuria. Musculoskeletal: Negative for back pain, myalgias and neck pain. Neurological: Negative for seizures and weakness. Hematological: Does not bruise/bleed easily. Psychiatric/Behavioral: Negative for dysphoric mood. The patient is not nervous/anxious. Objective PHYSICAL EXAM BP 122/84 Ht 182.9 cm (6') Wt 96.6 kg (213 lb) BMI 28.89 kg/m?? Right foot/ankle Inspection Erythema: absent Effusion: 1+ and present Surgical scar/wound: absent. Deformity: absent Edema: 1+ and present Skin temperature: normal Gait: antalgic Standing exam Hindfoot: neutral Forefoot: neutral Arch: normal Ankle: Anterior joint line: yes Anterior medial corner: yes Anterior lateral corner: yes Anterior impingement: no Medial ankle: Deltoid: no Medial malleolus: no Lateral ankle: Lateral malleolus: no Range of motion The patient has reduced range of motion. The patient has pain with range of motion. Ankle: Dorsiflexion knee extended: 5 Dorsiflexion knee flexed: 5 Plantarflexion: 40 Subtalar: Eversion: 10 Inversion: 25 Stability The patient has normal stability. Strength The patient has 5/5 strength throughout. Neurovascular The patient has normal vascular on the right side of their body. The patient has normal sensation on the right side of their body. Left foot Standing exam: Hindfoot: neutral Forefoot: neutral REVIW OF X-RAYS/STUDIES/LABS XR Ankle Right 3 or More Views Right ankle three views weight-bearing shows severe osteoarthritis with [id number] on the lateralside. Significant spurring is also noted. Subtalar joint appears to be preserved. X-rays reviewed from [facility] on 04/29/2017 which is two views of the right proximal tibiaand one view of the ankle that are negative for any acute or chronic pathology. Assessment/Plan Denis was seen today for pain. Diagnoses and all orders for this visit: Primary osteoarthritis of right ankle - XR Ankle Right 3 or More Views Smoker He has significant right ankle osteoarthritis with bone on bone. We discussed the treatment optionsas cortisone injections are not helping and has failed conservative treatment. His options are either an ankle replacement or ankle fusion. Due to his age and functional level I think a repeat fusionis a better option. PLAN He will be scheduled for right ankle arthrodesis as outpatient in a bed with general anesthesia. The risks, benefits, complications and prognosis were explained to the patient. All questions were answered to his satisfaction. The patient agreed to proceeding with surgery. I will need the [employer]ynthes 6.5/7 3 cannulated screws, [employer] augment graft and mini C-arm. The patient was also told he needs to be non smoking for least 1 month and no smoking during the healing phase. We will schedule him for surgery in 1 month. Hari Mari MD documented in this encounter Plan of Treatment Not on file documented as of this encounter Procedures Procedure Name Priority Date/Time Associated Diagnosis Comments XR ANKLE RIGHT 3 OR MORE VIEWS Schedule Routine, Read Routine (OP Routine) 08/06/2017 1:43 PM CDT Primary osteoarthritis of right ankle documented in this encounter Results * XR Ankle Right 3 or More Views (08/06/2017 1:43 PM CDT) Anatomical Region Laterality Modality Lower Extremities, Ankle Right Radiogr aphic Imaging Narrative 08/06/2017 2:11 PM CDT Right ankle three views weight-bearing shows severe osteoarthritis with [id number]-[id number] on the lateral side. ??Significant spurring is also noted. ?? Subtalar joint appears to be preserved. us Hari Mari Jr., MD IMG XR PROCEDURES F inal Result documented in this encounter Visit Diagnoses Diagnosis Primary osteoarthritis of right ankle- Primary Smoker Tobacco use disorder documented in this encounter Care Teams Locker Attendant Relationship Specialty Start Date End Date Sophia Damian MD [address] [place] [address] PCP - General 06/05/15 documented as of this encounter
--- OUTSIDE RECORDS SUMMARY | 2024-11-10 08:54 | XMS_ITS | Encounter Summary ---
Author Organization [facility] Address [address] [place] [address] Care Team Providers Care Neon Sign Erector Name Role Phone Sophia Damian MD Primary Care Provider + [phone] Encounter Details Date Type Department Care Team (Late st Contact Info) Description 09/18/2017 Telephone [facility] [address] [address] Shannon Morillo. 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 Gender Identity Not on file Sexual Orientation Not on file Occupation Industry Job Start Date Job End Date unemployed Not on file Not on file Not on file documented as of this encounter Miscellaneous Notes * Telephone Encounter - Shannon Morillo - 09/18/2017 11:04 AM CDT Called orders into [facility] * Telephone Encounter - Hari Mari Jr., MD - 09/18/2017 10:40 AM CDT Done documented in this encounter Plan of Treatment Not on file documented as of this encounter Visit Diagnoses Diagnosis Primary osteoarthritis of right ankle- Primary documented in this encounter Care Teams Neon Sign Erector Relationship Specialty Start Date End Date Sophia Damian MD [address] [place] [id number] PCP - General 06/05/15 documented as of this encounter
--- OUTSIDE RECORDS SUMMARY | 2024-11-10 08:54 | XMS_ITS | Encounter Summary ---
Author Organization [facility] Address [address] [place] [address] Care Team Providers Care Labels Molder Name Role Phone Sophia Damian MD Primary Care Provider + [phone] Encounter Details Date Type Department Care Team (Latest Contact Info) Description 08/06/2017 1:39 PM CDT - 08/06/2017 11:59 PM CDT Hospital Encounter [facility] [address] [address] Discharge Disposition: Discharge to home or self care Social History Tobacco Use Types Packs/Day Years Used Date Smoking Tobacco: Smoker, Current Status Unknown Smokeless Tobacco: Never Alcohol Use Standard Drinks/Week Comments Yes 0 (1 standard drink = 0.6 oz pur e alcohol) Sex and Gender Information Value Date Recorded Sex Assigned at Not on file 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 ??Significant spurring is also noted. ?? Subtalar joint appears to be preserved. Hari Mari Jr., MD IMG XR PROCEDURES F inal Result documented in this encounter Visit Diagnoses Not on filedocumented in this encounter Care Teams Labels Molder Relationship Specialty Start Date End Date Sophia Damian MD [address] [place] [address] PCP - General 06/05/15 documented as of this encounter
--- OUTSIDE RECORDS SUMMARY | 2024-11-10 08:54 | XMS_ITS | Encounter Summary ---
Author Organization [facility] Address [address] [place] [address] Care Team Providers Care Sand Control Worker Name Role Phone Sophia Damian MD Primary Care Provider + [phone] Encounter Details Date Type Department Care Team (Latest Contact Info) Description 01/14/2018 10:39 AM NEWS SPECIALIST - 01/14/2018 11:59 PM NEWS SPECIALIST Hospital Encounter [facility] [id number] [address] Discharge Disposition: Discharge to home or self care Social History Tobacco Use Types Packs/Day Years Used Date Smoking Tobacco: Smoker, Current Status Unknown Smokeless Tobacco: Never Alcohol Use Standard Drinks/Week Comments Yes 0 (1 standard drink = 0.6 oz pur e alcohol) Sex and Gender Information Value Date Recorded Sex Assigned at Not on file Legal Sex Male 3:53 PM NEWS SPECIALIST Gender Identity Not on file Sexual [...] Read Routine (OP Routine) 01/14/2018 10:48 AM NEWS SPECIALIST Primary osteoarthritis of right ankle documented in this encounter Results * XR Ankle Right 3+ Vw (01/14/2018 10:48 AM NEWS SPECIALIST) Anatomical Region Laterality Modality Lower Extremities, Ankle Right Radiogr aphic Imaging Narrative 01/14/2018 12:05 PM NEWS SPECIALIST Right ankle three views demonstrates and a ankle arthrodesis he held with 3 cannulated screws. ??No evidence of hardware failure. ??Complete consolidation is difficult to assess. Hari Mari Jr., MD IMG XR PROCEDURES F inal Result documented in this encounter Visit Diagnoses Not on filedocumented in this encounter Care Teams Sand Control Worker Relationship Specialty Start Date End Date Sophia Damian MD [address] [place] [address] PCP - General 06/05/15 documented as of this encounter
--- OUTSIDE RECORDS SUMMARY | 2024-11-10 08:54 | XMS_ITS | Encounter Summary ---
Author Organization [facility] Address [address] [facility] [address] [place] [address] Care Team Providers Care Computer Lab Aide Name Role Phone Sophia Damian MD Primary Care Provider + [phone] Encounter Details Date Type Department Care Team (Latest Contact Info) Description 02/11/2018 11:20 AM CDT - 02/11/2018 11:59 PM CDT Hospital Encounter [facility] [phone] [address] Discharge Disposition: Discharge to home or self care Social History Tobacco Use Types Packs/Day Years Used Date Smoking Tobacco: Smoker, Current Status Unknown Smokeless Tobacco: Never Alcohol Use Standard Drinks/Week Comments Yes 0 (1 standard drink = 0.6 oz pur e alcohol) Sex and Gender Information Value Date Recorded Sex Assigned at Not on file 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 ??The screws remain intact without evidence of hardware failure. ??Complete healing is difficult to assess. Natalia NAVA IMG XR PROCEDURES Final Resul t documented in this encounter Visit Diagnoses Not on filedocumented in this encounter Care Teams Computer Lab Aide Relationship Specialty Start Date End Date Sophia Damian MD [address] [place] [address] PCP - General 06/05/15 documented as of this encounter
--- OUTSIDE RECORDS SUMMARY | 2024-11-10 08:54 | XMS_ITS | Encounter Summary ---
Author Organization [facility] Medical [facility] Address [address] [facility] [address] [place] [address] Care Team Providers Care Computational Sciences Professor Name Role Phone Sophia Damian MD Primary Care Provider [phone] Reason for Referral * Diagnostic Imaging (Routine) - Closed Specialty Diagnoses / Procedures Referred By Contac t Referred To Contact Radiology Diagnoses Primary osteoarthritis of right ankle Procedures CT Ankle Right WO Contrast Natalia Narayanan PA Phone: tel: fax: [address] [address] Referral ID Status Reason Start Date Expiration Date Visits Re quested Visits Authorized [id number] Closed 02/11/2018 08/10/2018 1 1 Reason for Visit * Reason Comments Pain Follow-up Encounter Details Date Type Department Care Team (Latest Contact Info) Description 02/11/2018 10:45 AM CDT [facility] [address] [address] [place] [address] [address] Primary osteoarthritis of right ankle (Primary Dx) Social History Tobacco Use Types Packs/Day Years Used Date Smoking Tobacco: Smoker, Current Status Unknown Smokeless Tobacco: Never Alcohol Use Standard Drinks/Week Comments Yes 0 (1 standard drink = 0.6 oz pur e alcohol) Sex and Gender Information Value Date Recorded Sex Assigned at Not on file Legal Sex Male 3:53 PM 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 FOLLOW UP VISIT Subjective CHIEF COMPLAINT He had concerns including Pain and Follow-up of the Right Ankle. HISTORY OF PRESENT ILLINESS Denis is seen today in follow-up of his right ankle arthrodesis which is a revision procedure. Date of surgery is 09/12/2017. He he continues to have pain in the ankle. He is using crutches and his boot today. He states if he rests the ankle feels better but when he tries to do more activity will start to hurt. He continues to smoke a pack every 2-3 days. MEDICATIONS He has a current medication [...] Negative for dysuria and flank pain. Musculoskeletal: Positive for arthralgias and gait problem. Negative for neck pain. Skin: Negative for color change and rash. Allergic/Immunologic: Negative for immunocompromised state. Neurological: Negative for dizziness, speech difficulty and weakness. Hematological: Negative for adenopathy. Psychiatric/Behavioral: Negative for decreased concentration and hallucinations. PHYSICAL EXAM Right ankle exam demonstrates all incisions to be well healed. No redness. There is soft tissue swelling around the ankle and moderate tenderness over the medial aspect of the ankle joint. The lateral ankle is nontender. He can flex extend his toes and has intact sensation light touch. REVIEW OF X-RAYS/STUDIES/LABS (IF ORDERED) XR Ankle Right 3+ Vw Right ankle three views demonstrates an ankle arthrodesis and fixed with cannulated screws. The screws remain intact without evidence of hardware failure. Complete healing is difficult to assess. Assessment/Plan Denis was seen today for pain and follow-up. Diagnoses and all orders for this visit: Primary osteoarthritis of right ankle - CT Ankle Right WO Contrast; Future - XR Ankle Right 3+ Vw Plan Denis is stalled in his recovery from his revision ankle arthrodesis on the right. He has not noticed any improvement from last month of this month and still feels need to use crutches in a boot. Atthis point a CT scan will be done to assess the state of the arthrodesis and see if it is healed. It is concerning that he still feels compelled to use crutches and brace. In the interim he will remain in the brace and on the crutches. Follow-up will be after the CT scan BRANDY Pickett documented in this encounter Plan [...] signed by: Micheal Neff M.D. Natalia NAVA IMBharati CT PROCEDURES Final Resul t * XR Ankle Right 3+ Vw (02/11/2018 11:20 AM CDT) Anatomical Region Laterality Modality Lower Extremities, Ankle Right Radiogr aphic Imaging Narrative 02/11/2018 11:25 AM CDT Right ankle three views demonstrates an ankle arthrodesis and fixed with cannulated screws. ??The screws remain intact without evidence of hardware failure. ??Complete healing is difficult to assess. us Natalia NAVA IMG XR PROCEDURES Final Resul t documented in this encounter Visit Diagnoses Diagnosis Primary osteoarthritis of right ankle- Primary Primary osteoarthritis of right ankle documented in this encounter Care Teams Computational Sciences Professor Relationship Specialty Start Date End Date Sophia Damian MD [address] [place], [place] [id number] PCP - General 06/05/15 documented as of this encounter
--- OUTSIDE RECORDS SUMMARY | 2024-11-10 08:54 | XMS_ITS | Encounter Summary ---
Author Organization [facility] Healthcare Address [address] [place] [address] Care Team Providers Care Air Valve Mechanic Name Role Phone Sophia Damian MD Primary Care Provider + [phone] Encounter Details Date Type Department Care Team (Latest Contact Info) Description 09/16/2017 5:57 AM CDT - 09/17/2017 3:58 PM CDT Hospital Encounter [facility] [address] [place] [address] Rishi Mari Jr., [place] [id number] [place] [id number] Discharge Disposition: Discharge to home or self care Social History Tobacco Use Types Packs/Day Years Used Date Smoking Tobacco: Smoker, Current Status Unknown Smokeless Tobacco: Never Alcohol Use Standard Drinks/Week Comments Yes 0 (1 standard drink = 0.6 oz pur e alcohol) Sex and Gender Information Value Date Recorded Sex Assigned at Not on file Legal Sex Male 3:53 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 Gender Identity Not on file Sexual Orientation Not on file Occupation Industry Job Start Date Job End Date unemployed Not on file Not on file Not on file documented as of this encounter Last Filed Vital Signs Vital Sign Reading Time Taken Comments Blood Pressure 148/81 09/17/2017 3:11 PM CDT Pulse 92 09/17/2017 3:11 PM CDT Temperature - - Respiratory Rate - - Oxygen Saturation - - Inhaled Oxygen Concentration - - Weight 97.5 kg (214 lb 15.9 oz) 09/16/2017 4:42 PM CDT Height 182.9 cm (6' 0.01 ) 09/16/2017 4:42 PM CD T Body Mass Index 29.15 09/16/2017 4:42 PM CDT documented in this encounter Medications at Time of Discharge ALPRAZolam (XANAX) 0.25 mg tablet Take 0.25 mg by mouth nightly as needed for anxiety. documented as of this encounter Discharge Disposition Disposition Code Departure Means Destination Discharge to home or self care documented in this encounter Miscellaneous Notes * Op Note - Provider, MD Josefina - 09/16/2017 12:00 AM CDT OPERATIVE REPORT Patient: DENIS LOMBARDI Service Date: 09/16/2017 Account: [id number] Room No: 1002-02 : 1960 Patient Type: [facility] Attend.: Rishi Mari M.D. Admit Date: 09/16/2017 Surgeon: Rishi Mari M.D. Disch. Date: SURGEON Rishi Mari MD BRAKE REPAIRER AIR BRANDY Cordero PREOPERATIVE DIAGNOSIS Right ankle osteoarthritis. POSTOPERATIVE DIAGNOSIS Right ankle osteoarthritis. OPERATION Right ankle arthrodesis with augment graft. ASSISTANTS BRANDY Cordero, and FREDY Richmond. ANESTHESIA General PROCEDURE Placed in supine position. General anesthesia was given. Posts were placed posterior to the hip to internally rotate the leg. Thigh tourniquet was placed. The leg was prepped and draped in usual manner. Two grams of Ancef given intravenously. Thigh tourniquet was inflated to 300 mmHg. Skin incision made for anterior lateral approach to the hindfoot. Dissection carried down to subcu tissue, any bleeding vessels controlled with Bovie cautery. The fibula was identified. I had to free up some osteophytes in the distal tib-fib syndesmosis. The distal tibia was then cut proximally with an oblique angle. Took out about a 1 cm segment of fibula. This was then pried open and the joint surface was denuded from the distal tib-fib joint getting down to raw bleeding bone on both sides of the joint. Also the lateral aspect of the talus was denuded. Attention then directed down to the ankle joint itself. It was found that the talar side was down to eburnated bone. There was no cartilage is present. The talus, there was cartilage present which was denuded with curettes and rongeurs back down to good healthy bleeding bone. Then the drill guide pin was used to put multiple perforations on both joint surfaces of both the tibia as well as the talus. The foot was then able to be lined up in neutral orientation with the ankle in neutral dorsiflexion, correct rotation with obliteration of the joint space in good position. This then stabilized with 2 screws going from the talus at the critical angle of Gissane and then just anterior to this up and across the tibia. Screws were placed and tightened down with excellent compression and obliteration of the joint space with excellent stability. Prior to this being done, about 2/3 of the augment was placed into the joint surface after we had made sure it was irrigated out, cleaned and dried, then the augment was placed. Those were both 7.3 Synthes screws, and then two 6.5 Synthes screws were placed, 1 going from the distal fibula into the talus, and 1 going from the proximal fibula into the tibia. Checked on FluoroScan the correct length and position of the screws, and excellent alignment of the ankle. The last of the graft material had been placed in the distal tib-fib joint prior to compressed down the screws. The patient had one nerve that was present in the distal aspect of the incision that was present initially. It was still intact when the procedure was over. The extensor brevis was repaired with 3-0 Vicryl, subcu with 3-0 Vicryl, skin with giovanni. The area was infiltrated with 10 mL of 0.5% Marcaine for postop pain management. Tourniquet was released after approximately 70 minutes with good refill returned to the leg. Dressed in Xeroform, 4 x 4, Webril, posterior and sugar-tong splints and Ronald wrap. The patient was awakened, taken to recovery room in stable condition. Sponge counts correct. Electronically Authenticated by: Rishi Mari Jr, MD On 09/16/2017 04:16 PM CDT Joe Ignacio/mary TD: 09/16/2017 10:14 documented in this encounter Plan of Treatment Not on file documented as of this encounter Procedures Procedure Name Priority Date/Time Associated Diagnosis Comments ANKLE RADIOGRAPHY, PORTABLE Routine 09/16/2017 2:11 PM CDT FL FLUOROSCOPY < 1 HOUR Routine 09/16/2017 2:11 PM CDT documented in this encounter Results * Fluoroscopy < 1 Hour (09/16/2017 2:11 PM CDT) Anatomical Region Laterality Modality Body N/A Radiographic Cher ging 09/16/2017 2:11 PM CDT Narrative 09/17/2017 2:52 PM CDT DATE OF EXAM: ??Sep 16 2017 ??9:11AM Acc#: ??[id number] ??EDX 0202 - XR Fluoro Less Than 1 Hour in OR ?? DIAGNOSIS: ??OSTEOARTHRITIS RIGHT ANKLE ARTHRODESIS CLINICAL HISTORY: ?? RT ANKLE ARTHRODESIS RESULT: Fluoroscopy was provided by the Department of Radiology and no film(s) were taken. ??A radiology diagnostic report is not required. IMPRESSION: ?Fluoroscopy was provided by the Department of Radiology and no film(s) were taken. ??A radiology diagnostic report is not required. AGRONOMY INSTRUCTOR: ?? TRANSCRIBE DATE/TIME: ??Nov ??1 2017 ??9:52A RADIOLOGIST: ?[facility] M.D. ??READ ON: ??Nov ??2016 ?? 9:52A ORDERING DR: RISHI MARI M.D. ? THIS DOCUMENT HAS BEEN ELECTRONICALLY SIGNED BY: ??[facility] MChad, ?ON: ??Nov ??2016 ??9:52A Attending: ??JOSEPH, ??RISHI Requesting: ??JOSEPH, ??RISHI Requesting Fax: ??[phone] Attending Fax: ??[phone] Attending ID: ??[id number] Requesting ID: ??[id number] Report To 1 ID: ?? Report To 1 Name: ??, ?? Report To 1 FAX: ??-- Report To 2 ID: ?? Report To 2 Name: ??, ?? Report To 2 FAX: ??-- NextGen Order #: ?? Procedure Note Miscellaneous, Not In File - 09/17/2017 DATE OF EXAM: Sep 16 2017 9:11AM Acc#: [id number] EDX 0202 - XR Fluoro Less Than 1 Hour in OR DIAGNOSIS: OSTEOARTHRITIS RIGHT ANKLE ARTHRODESIS CLINICAL HISTORY: RT ANKLE ARTHRODESIS RESULT: Fluoroscopy was provided by the Department of Radiology and no film(s) were taken. A radiology diagnostic report is not required. IMPRESSION: Fluoroscopy was provided by the Department of Radiology and no film(s) were taken. A radiology diagnostic report is notrequired. AGRONOMY INSTRUCTOR: TRANSCRIBE DATE/TIME: Sep 17 2017 9:52A RADIOLOGIST: [facility] Joe READ ON: Sep 17 2017 9:52A ORDERING DR: RISHI MARI M.D. THIS DOCUMENT HAS BEEN ELECTRONICALLY SIGNED BY: [email or web address] Joe, ON: Sep 17 20179:52A Attending: RISHI MARI Requesting: RISHI MARI Requesting Attending Attending ID: [id number] Requesting ID: [id number] Report To 1 ID: Report To 1 Name: , Report To 1 FAX: -- Report To 2 ID: Report To 2 Name: , Report To 2 FAX: -- NextGen Order #: Rishi Mari Jr., MD IMG FLUOROSCOPY PRO CEDURES Final Result * ANKLE RADIOGRAPHY, PORTABLE (09/16/2017 2:11 PM CDT) Anatomical Region Laterality Modality N/A Radiographic Cher ging 09/16/2017 2:11 PM CDT Narrative 09/16/2017 2:25 PM CDT DATE OF EXAM: ??Sep 16 2017 ??9:11AM Acc#: ??[id number] ??EDX 0223 - XR Ankle 2 Views Portable R ?? DIAGNOSIS: ??OSTEOARTHRITIS RIGHT ANKLE ARTHRODESIS CLINICAL HISTORY: ?? RT ANKLE ARTHRODESIS RESULT: HISTORY: The patient is a 57-year-old male who has had fusion of the right ankle. ??Pain. TECHNIQUE: 2 views done in the OR with portable technique. ??No previous films are available for comparison .A total of 18 seconds of fluoroscopy time was utilized.. FINDINGS: There are 3 threaded screws in the distal tibia and fibula along with one screw in the talus. ??There is narrowing of the lateral portion of the ankle mortise. ??Cortical deformity of the distal fibular shaft is noted, likely from an old healed fracture. IMPRESSION: OR Internal Fixation. Electronically signed by: Leona Wang M.D. ? AGRONOMY INSTRUCTOR: ??PSC TRANSCRIBE DATE/TIME: ??Sep 16 2017 ??9:23A RADIOLOGIST: ??LEONA WANG M.D. ??READ ON: ??Sep 16 2017 ??9:25A ORDERING DR: RISHI MARI M.D. ? THIS DOCUMENT HAS BEEN ELECTRONICALLY SIGNED BY: ??PETE Diaz, LEONA ??ON: ??Sep 16 2017 ??9:23A Attending: ??JOSEPH, ??RISHI Requesting: ??JOSEPH, ??RISHI Requesting Fax: ??[phone] Attending Fax: ??[phone] Attending ID: ??[id number] Requesting ID: ??[id number] Report To 1 ID: ?? Report To 1 Name: ??, ?? Report To 1 FAX: ??-- Report To 2 ID: ?? Report To 2 Name: ??, ?? Report To 2 FAX: ??-- NextGen Order #: ?? Procedure Note Miscellaneous, Not In File - 09/16/2017 DATE OF EXAM: Sep 16 2017 9:11AM Acc#: [id number] EDX 0223 - XR Ankle 2 Views Portable R DIAGNOSIS: OSTEOARTHRITIS RIGHT ANKLE ARTHRODESIS CLINICAL HISTORY: RT ANKLE ARTHRODESIS RESULT: HISTORY: The patient is a 57-year-old male who has had fusion of the right ankle. Pain. TECHNIQUE: 2 views done in the OR with portable technique. No previous films are available for comparison .A total of 18 seconds of fluoroscopy time was utilized.. FINDINGS: There are 3 threaded screws in the distal tibia and fibula along with one screw in the talus. There is narrowing of the lateral portion of the ankle mortise. Cortical deformity of the distal fibular shaft is noted, likely from an old healed fracture. IMPRESSION: OR Internal Fixation. Electronically signed by: Leona Wang M.D. AGRONOMY INSTRUCTOR: PSC TRANSCRIBE DATE/TIME: Sep 16 2017 9:23A RADIOLOGIST: LEONA WANG M.D. READ ON: Sep 16 2017 9:25A ORDERING DR: RISHI MARI M.D. THIS DOCUMENT HAS BEEN ELECTRONICALLY SIGNED BY: LEONA WANG M.D. ON: Sep 16 2017 9:23A Attending: RISHI MARI Requesting: RISHI MARI Requesting Attending Attending ID: [id number] Requesting ID: [id number] Report To 1 ID: Report To 1 Name: , Report To 1 FAX: -- Report To 2 ID: Report To 2 Name: , Report To 2 FAX: -- NextGen Order #: Rishi Mari Jr., MD IMG XR PROCEDURES F inal Result documented in this encounter Visit Diagnoses Not on filedocumented in this encounter Care Teams Air Valve Mechanic Relationship Specialty Start Date End Date Sophia Damian MD [address] [place] [address] PCP - General 06/05/15 documented as of this encounter
--- OUTSIDE RECORDS SUMMARY | 2024-11-10 08:54 | XMS_ITS | Encounter Summary ---
Author Organization [facility] Address [address] [place] [address] Care Team Providers Care Motion Study Engineer Name Role Phone Sophia Damian MD Primary Care Provider + [phone] Reason for Visit * Reason Comments Follow-up Pain Encounter Details Date Type Department Care Team (Latest Contact Info) Description 11/05/2017 2:00 PM ASSIGNMENT DESK ASSISTANT Office Visit [facility] [address] [place] [phone] Kathleen Barbosa [place] [id number] [place] [address] [address] [place] [address] Primary osteoarthritis of right ankle (Primary Dx) Social History Tobacco Use Types Packs/Day Years Used Date Smoking Tobacco: Smoker, Current Status Unknown Smokeless Tobacco: Never Alcohol Use Standard Drinks/Week Comments Yes 0 (1 standard drink = 0.6 oz pur e alcohol) Sex and Gender Information Value Date Recorded Sex Assigned at Not on file Legal Sex Male 3:53 PM ASSIGNMENT DESK ASSISTANT Gender Identity Not on file Sexual Orientation [...] - - Weight 82.6 kg (182 lb) 11/05/2017 2:26 PM ASSIGNMENT DESK ASSISTANT Height 182.9 cm (6') 11/05/2017 2:26 PM ASSIGNMENT DESK ASSISTANT Body Mass Index 24.68 11/05/2017 2:26 PM ASSIGNMENT DESK ASSISTANT documented in this encounter Progress Notes * Kathleen Barbosa PA - 11/05/2017 2:00 PM CST Images from the original note were not included. FOLLOW UP VISIT Subjective CHIEF COMPLAINT He had concerns including Pain of the Right Ankle and Follow-up. HISTORY OF PRESENT ILLNESS This is a 57-year-old male who is here today to be re-evaluated for his right ankle approximately 8weeks out from fusion. He is wondering when he is going to be able to come out of his cast and whenhe is going to be able to start walking on this. He states that he had some difficulties with his cast and had these some glue on the bottom of it to get it to hold together. He states that he was having pressure across this healing is worried about his skin now that the cast is off. He is wondering what to do about this and what we think about this. Pain Assessment Pain Assessment: 0-10 Pain Score: 0 - No pain Pain Location: Ankle Pain Orientation: Right Pain Descriptors: Aching Pain Frequency: Positional Pain Onset: Sudden Date Pain First Started: 09/05/17 Clinical Progression: Gradually improving Aggravating Factors: Standing, Walking Result of Injury: Yes Pain Interventions: Home medication, Rest MEDICATIONS He has a current medication list which includes the following prescription(s): alprazolam, cephalexin, and oxycodone-acetaminophen. REVIEW OF SYSTEMS Review of Systems Objective PHYSICAL EXAM Ht 182.9 cm (6') Wt 82.6 kg (182 lb) BMI 24.68 kg/m?? He is alert and oriented x3. He is in no acute distress. He is cooperative with the exam. His incision is clean, dry, and intact. It appears to be healing nicely. He has loss of dry skin consistent with being in a cast. He does have some maceration to his heel consistent with some wetness to the cast. I did not appreciate any pressure ulcers. He does have some resolving what appears to have been a fracture blister at the distal portion of his incision as well. This appears to be healing nicely.I do not currently appreciate any head below or areas of drainage. His Steri-Strips removed. One small eschar peeled off and there was a slight sanguinous ooze. He has good dorsiflexion and plantar flexion of his toes. His ankle is extremely limited as expected. Sensation is unchanged. He is ambulating easily with his knee walker. He was reluctant to put his foot down and did have some tendernesswhen he did this. We advised him to wait until he is more comfortable to do this. REVIEW OF X-RAYS/STUDIES/LABS XR Ankle Right 3 or More Views My interpretation of his x-rays today: Three views of his right ankle show that his fusion is healing nicely. There is obliteration of the mortise joint at the fibular side as well as across the tibiotalar joint. Medially, there is still a very slight clear space as expected. Overall, the fusion appears to be healing nicely. Assessment/Plan Denis was seen today for follow-up and pain. Diagnoses and all orders for this visit: Primary osteoarthritis of right ankle - XR Ankle Right 3 or More Views PLAN This is a 57-year-old male who is here today to be re-evaluated for his right ankle status post right ankle fusion. He appears to be healing this nicely. He is approximately 8 weeks out. He may be weight-bearing as tolerated in his boot. He knows to back off if this is too painful. He may shower. Iwould advise not soaking this in the bathtub a until all areas of previous bleeding have sealed over. He will follow up in 1 month for re-evaluation and new weight-bearing x- rays. We will see how he does with this. He knows to call with any further questions or concerns. BRANDY Mar GNMENT DESK ASSISTANT documented in this encounter Plan of Treatment Not on file documented as of this encounter Procedures Procedure Name Priority Date/Time Associated Diagnosis Comments XR ANKLE RIGHT 3 OR MORE VIEWS Schedule Routine, Read Routine (OP Routine) 11/05/2017 2:49 PM ASSIGNMENT DESK ASSISTANT Primary osteoarthritis of right ankle documented in this encounter Results * XR Ankle Right 3 or More Views (11/05/2017 2:49 PM ASSIGNMENT DESK ASSISTANT) Anatomical Region Laterality Modality Lower Extremities, Ankle Right Radiogr aphic Imaging Narrative 11/05/2017 4:31 PM ASSIGNMENT DESK ASSISTANT My interpretation of his x-rays today: ??Three views of his right ankle show that his fusion is healing nicely. ??There is obliteration of the mortise joint at the fibular side as well as across the tibiotalar joint. ?? Medially, there is still a very slight clear space as expected. ??Overall, the fusion appears to be healing nicely. us Hari Mari Jr., MD IMG XR PROCEDURES F inal Result documented in this encounter Visit Diagnoses Diagnosis Primary osteoarthritis of right ankle- Primary documented in this encounter Care Teams Motion Study Engineer Relationship Specialty Start Date End Date Sophia Damian MD [address] [id number] PCP - General 06/05/15 documented as of this encounter
--- OUTSIDE RECORDS SUMMARY | 2024-11-10 08:55 | XMS_ITS | Encounter Summary ---
Author Organization [facility] Address [address] [place] [address] Care Team Providers Care Warehouse Selector Name Role Phone Sophia Damian MD Primary Care Provider Reason for Visit * Reason Comments Pain Encounter Details Date Type Department Care Team (Late st Contact Info) Description 04/29/2017 11:45 AM CDT Office Visit [facility] Orthopedics and Sports Medicine [address] [facility] [address] [place] [id number] Marah Gtz PA [address] [facility] [address] [place] [address] Primary osteoarthritis of right ankle (Primary Dx) Social History Tobacco Use Types Packs/Day Years Used Date Smoking Tobacco: Smoker, Current Status Unknown Alcohol Use Standard Drinks/Week Comments Yes 0 (1 standard drink = 0.6 oz pur e alcohol) Sex and Gender Information Value Date Recorded Sex Assigned at Not on file Legal Sex Male 3:53 PM APPRAISAL COORDINATOR Gender Identity Not on file Sexual Orientation Not on file documented as of this encounter Last Filed Vital Signs Vital Sign Reading Time Taken Comments Blood Pressure 147/92 04/29/2017 12:28 PM CDT Pulse 84 04/29/2017 12:28 PM CDT Temperature - - Respiratory Rate - - Oxygen Saturation - - Inhaled Oxygen Concentration - - Weight 98.2 kg (216 lb 6.4 oz) 04/29/2017 12:28 PM CDT Height 182.9 cm (6') 04/29/2017 12:28 PM CDT Body Mass Index 29.35 04/29/2017 12:28 PM CDT documented in this encounter Progress Notes * Marah Gtz PA - 04/29/2017 11:45 AM CDT Images from the original note were not included. NEW PATIENT VISIT Subjective CHIEF COMPLAINT He had concerns including Pain of the Right Ankle. HISTORY OF PRESENT ILLINESS Ankle Pain Patient complains of injury to the right ankle. This is evaluated as a personal injury. The injury occurred 18 months ago, and occurred from a ground level fall. The patient states the ankle rolled inward at the time of injury. He did hear or sense a pop or snap at the time of the injury. The patient notes pain and severe swelling of the ankle since the injury. He has treated the ankle with ice, no therapy. Pain is diffuse, aching and severe. He had seen his PCP at the time of the injury, who stated it was his arthritis. He has XR from [facility], results and images are copied from report below. I personally reviewed these and agree he has diffuse degenerative changes thro ughout his ankle joint. Pain is now severe and affecting his ability to work and stand for prolonged periods of time. Pain Assessment Pain Assessment: 0-10 Pain Score: 10 - Worst possible pain PAST MEDICAL HISTORY He has a past medical history of Malignant neoplasm of colon ([facility]) and Rheumatoid arthritis ([facility]). PAST SURGICAL HISTORY He has no past surgical history on file. MEDICATIONS He has a current medication list which includes the following prescription(s): alprazolam. ALLERGIES He has No Known Allergies. SOCIAL HISTORY He reports that he has been smoking. He does not have any smokeless tobacco history on file. He reports that he drinks alcohol. FAMILY HISTORY His family history is not on file. REVIEW OF SYSTEMS Review of Systems Constitutional: Negative for chills, fatigue and fever. Eyes: Negative for visual disturbance. Respiratory: Negative for chest tightness and shortness of breath. Cardiovascular: Negative for chest pain and leg swelling. Gastrointestinal: Negative for abdominal pain, constipation, diarrhea and vomiting. Genitourinary: Negative for dysuria, frequency and urgency. Musculoskeletal: Negative for myalgias. Skin: Negative for rash and wound. Neurological: Negative for dizziness, weakness and light-headedness. Hematological: Does not bruise/bleed easily. Psychiatric/Behavioral: Negative for confusion. Objective PHYSICAL EXAM BP 147/92 (BP Location: Left arm, Patient Position: Sitting) Pulse 84 Ht 182.9 cm (6') Wt 98.2 kg (216 lb 6.4 oz) BMI 29.35 kg/m?? Right foot/ankle Inspection Erythema: absent Effusion: 1+ Surgical scar/wound: absent. Deformity: absent Edema: 1+ Gait: antalgic Sitting exam Subtalar in neutral: Forefoot Varus and Flexible Ankle: Anterior joint line: yes Anterior medial corner: yes Anterior lateral corner: yes Medial ankle: Deltoid: yes Medial malleolus: yes Lateral ankle: ATFL: yes CFL: yes Lateral malleolus: yes Sinus tarsi: yes Peroneal groove: yes Range of motion The patient has reduced range of motion. The patient has pain with range of motion. Stability Anterior drawer: stable Strength The patient has 5/5 strength throughout. Neurovascular The patient has normal vascular on the right side of their body. The patient has normal sensation on the right side of their body. Left foot The patient has normal inspection, palpation, range of motion, strength,and stability of the left foot. Range of motion The patient has normal range of motion of the left foot and ankle. Stability Anterior drawer: stable Strength The patient has 5/5 strength throughout. Neurovascular The patient has normal vascular on the left side of their body. The patient has normal sensation on the left side of their body. REVIEW OF X-RAYS/STUDIES/LABS XR Ankle Right 3+ Vw X-ray of the right proximal tib/fib and 1 view of left ankle viewed and interpreted. There is no evidence of fracture, subluxation, or bony abnormality. Joint space is reasonably maintained [place] [address] [facility] RADIOLOGY REPORT Patient Name: Denis Ca Patient Number: [id number] Stay Type: OP MR Number: [id number] Admit Date: 04/07/2017 Discharge Date: 04/07/2017 Date of : 1960 Room: Age: 56 Sex: M Admitting MD: Sophia Damian Film No.: [id number] Family MD: Sophia Damian Date of Service: 04/07/2017 Secondary MD: Accession No.: [id number] Unsigned aviation project manager represents a preliminary report and does not represent a medical or legal document. EXAMINATION: Right ankle CLINICAL HISTORY: Pain in the entire ankle 1-1/2 years since ground-level fall COMPARISON: None TECHNIQUE: Right ankle 3 view FINDINGS: The bone mineralization appears decreased. There is osteoarthritis at the ankle with osteophyte formation, joint bodies and joint space loss asymmetrically greater in the lateral aspect of the tibiotalar joint. No acute fracture is identified. Well corticated ossific density inferior to the medial malleolar tip may reflect old injury. There are degenerative changes of the subtalar joint. Lateral soft tissue swelling is noted at the ankle. There is a plantar calcaneal enthesophyte. IMPRESSION: No acute osseous abnormality. Lateral soft tissue swelling. Osteoarthritis. THIS IS AN ELECTRONICALLY VERIFIED REPORT 04/07/2017 9:46 PM: Joe Reese M.D. JR: Assessment/Plan Denis was seen today for pain. Diagnoses and all orders for this visit: Primary osteoarthritis of right ankle - XR Ankle Right 3+ Vw Plan Discussed and reviewed images with patient Fluoroscopic inj. For his right ankle will be ordered at [facility] Recommend further assessment/referral to foot/ankle specialist to further discuss additional options/surgical consultation. Activity modification, RICE and OTC NSAIDS All questions were answered. Patient expressed full understanding and agreement of plan. F/u with me prn. BRANDY Hankins documented in this encounter Plan of Treatment Not on file documented as of this encounter Procedures Procedure Name Priority Date/Time Associated Diagnosis Comments XR ANKLE RIGHT 3 OR MORE VIEWS Schedule Routine, Read Routine (OP Routine) 04/29/2017 1:14 PM CDT Primary osteoarthritis of right ankle documented in this encounter Results * XR Ankle Right 3+ Vw (04/29/2017 1:14 PM CDT) Anatomical Region Laterality Modality Lower Extremities, Ankle Right Digital Radiography Narrative 04/29/2017 1:31 PM CDT X-ray of the right proximal tib/fib and 1 view of left ankle viewed and interpreted. ??There is no evidence of fracture, subluxation, or bony abnormality. ??Joint space is reasonably maintained of left ankle mortise. ?? Marah NAVA IMG XR PROCEDURES Final Result documented in this encounter Visit Diagnoses Diagnosis Primary osteoarthritis of right ankle- Primary documented in this encounter Discontinued Medications Medication Sig Discontinue Reason Start Date End Da te ciprofloxacin (CIPRO) 500 mg tablet TK 1 T PO Q 12 H FOR 10 DAYS Therapy completed 01/27/2017 04/29/2017 metroNIDAZOLE (FLAGYL) 500 mg tablet TK 1 T PO TID FOR 10 DAYS Therapy completed 01/27/2017 04/29/2017 documented as of this encounter Historical Medications * This list may reflect changes made after this encounter. ALPRAZolam (XANAX) 0.25 mg tablet Take 0.25 mg by mouth nightly as needed for anxiety. metroNIDAZOLE (FLAGYL) 500 mg tablet TK 1 T PO TID FOR 10 DAYS 0 01/27/2017 04/29/2017 ciprofloxacin (CIPRO) 500 mg tablet TK 1 T PO Q 12 H FOR 10 DAYS 0 01/27/2017 04/29/2017 added in this encounter Care Teams Warehouse Selector Relationship Specialty Start Date End Date Sophia Damian MD [address] [place] [address] PCP - General 06/05/15 documented as of this encounter
--- OUTSIDE RECORDS SUMMARY | 2024-11-10 08:55 | XMS_ITS | Encounter Summary ---
Author Organization [facility] Address [address] [place] [address] Care Team Providers Care Global Marketing Manager Name Role Phone Sophia Damian MD Primary Care Provider + [phone] Encounter Details Date Type Department Care Team ([facility] st Contact Info) Description 10/02/2016 3:50 PM INDUSTRIAL ROOFER Hospital Encounter [facility] Clari Brar MD [address] [place] [id number] Epidermal cyst Social History Tobacco Use Types Packs/Day Years Used Date Smoking Tobacco: Smoker, Current Status Unknown Alcohol Use Standard Drinks/Week Comments Yes 0 (1 standard drink = 0.6 oz pur e alcohol) Sex and Gender Information Value Date Recorded Sex Assigned at Not on file Legal Sex Male 3:53 PM INDUSTRIAL ROOFER Gender Identity Not on file Sexual Orientation Not on file documented as of this encounter Plan of Treatment Not on file documented as of this encounter Procedures Procedure Name Priority Date/Time Associated Diagnosis Comments SCAN - PATHOLOGY 10/04/2016 12:0 0 AM INDUSTRIAL ROOFER documented in this encounter Results * SCAN - PATHOLOGY (10/04/2016 12:00 AM INDUSTRIAL ROOFER) Narrative 10/04/2016 12:00 AM INDUSTRIAL ROOFER Ordered by an unspecified provider. us Historical Provider Final Res ult documented in this encounter Visit Diagnoses Diagnosis Epidermal cyst Sebaceous cyst documented in this encounter Care Teams Global Marketing Manager Relationship Specialty Start Date End Date Sophia Damian MD [address] [place] [address] PCP - General 06/05/15 documented as of this encounter
--- OUTSIDE RECORDS SUMMARY | 2024-11-10 08:55 | XMS_ITS | Encounter Summary ---
Author Organization [facility] Healthcare Address [address] [place] [address] Care Team Providers Care Cloth Shearing Supervisor Name Role Phone Sophia Damian MD Primary Care Provider + [phone] Encounter Details Date Type Department Care Team (Latest Contact Info) Description 08/08/2016 12:00 PM CDT Hospital Encounter [facility] OP Clari Workman MD [address] [place] [phone] Abscess of left upper eyelid Social History Tobacco Use Types Packs/Day Years Used Date Smoking Tobacco: Smoker, Current Status Unknown Alcohol Use Standard Drinks/Week Comments Yes 0 (1 standard drink = 0.6 oz pur e alcohol) Sex and Gender Information Value Date Recorded Sex Assigned at Not on file Legal Sex Male 3:53 PM PHYSICIAN PRACTICE CONSULTANT Gender Identity Not on file Sexual Orientation Not on file documented as of this encounter Plan of Treatment Not on file documented as of this encounter Procedures Procedure Name Priority Date/Time Associated Diagnosis Comments MICROBIOLOGY SPECIMEN REPORT (CONVERTED) Routine 08/08/2016 12:00 PM CDT documented in this encounter Results * Microbiology Specimen Report (Converted) (08/08/2016 12:00 PM CDT) 08/08/2016 12:0 0 PM CDT 08/09/2016 10:11 AM CDT [facility] HISTORICAL RESULTS - 08/08/2016 12:00 PM CDT Microbiology Specimen Report (Converted) SPECIMEN [id number] ?? COLLECTED: 2016-08-08 12:00:00 RN ?? REQ#: [id number] REQUESTING DR: Clari Workman MD ?? SOURCE: EYELID L ?? SP DESC: SWAB COMMENT: Description of Specimen: SWAB ?? --- PROCEDURE --- ?--- RESULT --- ?? GRAM STAIN ??(Final) ??- ??Performed at [facility] ?* RARE EPITHELIALS ? RARE WBC ?* RARE TO FEW GRAM POSITIVE COCCI CULTURE WOUND ??(Final) ??- ??Performed at [facility] ?? * Organism 1 - ACINETOBACTER BAUMANNII CMPLX [ACI JUNIOR] ?* LIGHT GROWTH ?* SEE SUSCEPTIBILITY REPORT BELOW ?? * Organism 2 - STAPHYLOCOCCUS LUGDUNENSIS [S LUGDUNE] ?* LIGHT GROWTH ?* SEE SUSCEPTIBILITY REPORT BELOW ? FOR OXACILLIN SUSCEPTIBLE STAPHYLOCOCCUS; ? Oxacillin or cefazolin therapy is recommended as these ? agents are superior to vancomycin. In a non-severe PCN ? allergy, cefazolin is recommended. In a severe PCN allergy, ? vancomycin is recommended. ? [ACI JUNIOR] ? M.I.C. ?RX AMPICILLIN/SULBACTAM ? <=2 ? S CEFTAZIDIME ?4 ? S CIPROFLOXACIN ?<=0.25 ?S GENTAMICIN ? <=1 ? S IMIPENEM ? <=0.25 ?S LEVOFLOXACIN ? <=0.12 ?S PIPERACILLIN/TAZOBACTAM ?16 ?S TOBRAMYCIN ? <=1 ? S ??S=Susceptible ?? I=Intermediate ?? S=Resistant ??SDD=Susceptible Dose Dependent ?? N/R=No Report ?JOSE ALEJANDRO =Beta Lactamase ? [S LUGDUNE] ? M.I.C. ?RX CLINDAMYCIN ?<=0.12 ?S DAPTOMYCIN ? 0.5 ? S ERYTHROMYCIN ? <=0.25 ?S ??- ??(NonPrintable) GENTAMICIN ? <=0.5 ? S ??- ??(NonPrintable) LEVOFLOXACIN ? <=0.12 ?S ??- ??(NonPrintable) DOXYCYCLINE ?<=0.5 ? S OXACILLIN ?0.5 ? S RIFAMPIN ? <=0.5 ? S ??- ??(NonPrintable) TETRACYCLINE ? <=1 ? S TRIMETHOPRIM/SULFAMETHOXAZOLE ??<=10 ?S VANCOMYCIN ? <=0.5 ? S ??S=Susceptible ?? I=Intermediate ?? S=Resistant ??SDD=Susceptible Dose Dependent ?? N/R=No Report ?JOSE ALEJANDRO =Beta Lactamase - [facility] ? [address] ? [place] [address] ? Jeremy Brady MD Procedure Note 02/06/2019 Microbiology Specimen Report (Converted) SPECIMEN [id number] COLLECTED: 2016-08-08 12:00:00 RN REQ#:[id number] REQUESTING DR: Clari Workman MD SOURCE: EYELID L SP DESC: SWAB COMMENT: Description of Specimen: SWAB --- PROCEDURE --- --- RESULT --- GRAM STAIN (Final) - Performed at [facility] * RARE EPITHELIALS RARE WBC * RARE TO FEW GRAM POSITIVE COCCI CULTURE WOUND (Final) - Performed at [facility] * Organism 1 - ACINETOBACTER BAUMANNII CMPLX [ACI JUNIOR] * LIGHT GROWTH * SEE SUSCEPTIBILITY REPORT BELOW * Organism 2 - STAPHYLOCOCCUS LUGDUNENSIS [S LUGDUNE] * LIGHT GROWTH * SEE SUSCEPTIBILITY REPORT BELOW FOR OXACILLIN SUSCEPTIBLE STAPHYLOCOCCUS; Oxacillin or cefazolin therapy is recommended as these agents are superior to vancomycin. In a non-severe PCN allergy, cefazolin is recommended. In a severe PCN allergy, vancomycin is recommended. [ACI JUNIOR] M.I.C. RX AMPICILLIN/SULBACTAM <=2 S CEFTAZIDIME 4 S CIPROFLOXACIN <=0.25 S GENTAMICIN <=1 S IMIPENEM <=0.25 S LEVOFLOXACIN <=0.12 S PIPERACILLIN/TAZOBACTAM 16 S TOBRAMYCIN <=1 S S=Susceptible I=Intermediate S=Resistant SDD=Susceptible Dose Dependent N/R=No Report JOSE ALEJANDRO =Beta Lactamase [S LUGDUNE] M.I.C. RX CLINDAMYCIN <=0.12 S DAPTOMYCIN 0.5 S ERYTHROMYCIN <=0.25 S - (NonPrintable) GENTAMICIN <=0.5 S - (NonPrintable) LEVOFLOXACIN <=0.12 S - (NonPrintable) DOXYCYCLINE <=0.5 S OXACILLIN 0.5 S RIFAMPIN <=0.5 S - (NonPrintable) TETRACYCLINE <=1 S TRIMETHOPRIM/SULFAMETHOXAZOLE <=10 S VANCOMYCIN <=0.5 S S=Susceptible I=Intermediate S=Resistant SDD=Susceptible Dose Dependent N/R=No Report JOSE ALEJANDRO =Beta Lactamase - [address] [id number] Jeremy Brady MD us Clari Workman MD LAB BLOOD ORDERABLES Final Re sult [facility] HISTORICAL RESULTS documented in this encounter Visit Diagnoses Diagnosis Abscess of left upper eyelid documented in this encounter Care Teams Cloth Shearing Supervisor Relationship Specialty Start Date End Date Sophia Damian MD [address] [place] [address] PCP - General 06/05/15 documented as of this encounter
--- OUTSIDE RECORDS SUMMARY | 2024-11-10 08:55 | XMS_ITS | Encounter Summary ---
Author Organization [facility] Address [address] [address] Care Team Providers Care Catapult And Arresting Gear Officer Name Role Phone Sophia Damian MD Primary Care Provider + [phone] Reason for Referral * Consultation (Routine) - Closed Specialty Diagnoses / Procedures Referred By Contac t Referred To Contact Orthopedic Surgery Diagnoses Osteoarthritis of right foot, unspecified osteoarthritis type Alexandr Lo MD Phone: tel: fax: Hari Mari Jr., MD Phone: tel: fax: Referral ID Status Reason Start Date Expiration Date V isits Requested Visits Authorized [id number] Closed Specialty Services Required 04/29/2017 10/26/2017 1 1 Encounter Details Date Type Department Care Team (Late st Contact Info) Description 04/29/2017 Orders Only [facility] Orthopedics and Sports Medicine [address] [address] [address] [place] [address] Mikala Hull MA Osteoarthritis of right foot, unspecified osteoarthritis type (Primary Dx) Social History Tobacco Use Types Packs/Day Years Used Date Smoking Tobacco: Smoker, Current Status Unknown Alcohol Use Standard Drinks/Week Comments Yes 0 (1 standard drink = 0.6 oz pur e alcohol) PHQ-2 Answer Date Recorded PHQ-2 Score 0 01/22/2019 Sex and Gender Information Value Date Recorded Sex Assigned at Not on file Legal Sex Male 3:53 PM TANK PUMPER PANELBOARD Gender Identity Not on file Sexual Orientation Not on file documented as of this encounter Plan of Treatment Scheduled Referrals Name Type Priority Associated Diagnoses Orde r Schedule Ambulatory referral to Orthopedic Foot Outpatient Referral Routine Osteoarthritis of right foot, unspecified osteoarthritis type Ordered: 04/29/2017 documented as of this encounter Visit Diagnoses Diagnosis Osteoarthritis of right foot, unspecified osteoarthritis type- Primary documented in this encounter Care Teams Catapult And Arresting Gear Officer Relationship Specialty Start Date End Date Sophia Damian MD [address] [place] [address] PCP - General 06/05/15 documented as of this encounter
--- OUTSIDE RECORDS SUMMARY | 2024-11-10 08:55 | XMS_ITS | Encounter Summary ---
Author Organization [facility] Address [address] [place] [address] Care Team Providers Care Culinary Arts Teacher Name Role Phone Sophia Damian MD Primary Care Provider + [phone] Encounter Details Date Type Department Care Team (Latest Contact Info) Description 04/29/2017 8:25 AM CDT - 04/29/2017 11:59 PM CDT Hospital Encounter [facility] Orthopedics and Sports Medicine [address] [place] [address] [address] [place] [id number] Discharge Disposition: Discharge to home or self care Social History Tobacco Use Types Packs/Day Years Used Date Smoking Tobacco: Smoker, Current Status Unknown Alcohol Use Standard Drinks/Week Comments Yes 0 (1 standard drink = 0.6 oz pur e alcohol) Sex and Gender Information Value Date Recorded Sex Assigned at Not on file 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
--- OUTSIDE RECORDS SUMMARY | 2024-11-10 08:55 | XMS_ITS | Encounter Summary ---
Author Organization [facility] Healthcare Address [address] [place] [address] Care Team Providers Care Gummed Tape Press Operator Name Role Phone Unavailable Primary Care Provider Unavailabl e Encounter Details Date Type Department Care Team (Late st Contact Info) Description 08/09/2008 10:34 AM CDT - 08/09/2008 2:02 PM CDT [place] [address] [facility] [place] [address] Sophia Damian MD [address] [place] [address] Social History Tobacco Use Types Packs/Day Years Used Date Smoking Tobacco: Never Assessed Sex and Gender Information Value Date Recorded Sex Assigned at Not on file 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
--- OUTSIDE RECORDS SUMMARY | 2024-11-10 08:55 | XMS_ITS | Encounter Summary ---
Author Organization [facility] Medical Group Address [address] [place] [address] Care Team Providers Care Human Resources Compliance Manager Name Role Phone Sophia Damian MD Primary Care Provider + [phone] Encounter Details Date Type Department Care Team (Late st Contact Info) Description 04/29/2017 Telephone [facility] Orthopedics and Sports Medicine [address] [place] [address] [address] [address] Mikala Hull MA Social History Tobacco Use Types Packs/Day Years Used Date Smoking Tobacco: Smoker, Current Status Unknown Alcohol Use Standard Drinks/Week Comments Yes 0 (1 standard drink = 0.6 oz pur e alcohol) Sex and Gender Information Value Date Recorded Sex Assigned at Not on file 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 Gender Identity Not on file Sexual Orientation Not on file documented as of this encounter Miscellaneous Notes * Telephone Encounter - Mikala Hull MA - 04/29/2017 4:26 PM CDT Left message for patient to call back regarding referral to foot and ankle dr nicholas office, his office states that they would like the patient to call to make appt with the office,last office note was faxed office number [phone] cristopher office number documented in this encounter Plan of Treatment Not on file documented as of this encounter Visit Diagnoses Not on filedocumented in this encounter Care Teams Human Resources Compliance Manager Relationship Specialty Start Date End Date Sophia Damian MD [address] [place] [address] PCP - General 06/05/15 documented as of this encounter
--- OUTSIDE RECORDS SUMMARY | 2024-11-10 08:55 | XMS_ITS | Encounter Summary ---
Author Organization [facility] Address [address] [place] [address] Care Team Providers Care Prop Cutter Name Role Phone Sophia Damian MD Primary Care Provider [phone] Reason for Referral * Diagnostic Imaging (Routine) - Closed Specialty Diagnoses / Procedures Referred By Contac t Referred To Contact Diagnoses Arthritis of right ankle Procedures Fluoro Guided Injection Ankle Right Alexandr Lo MD Phone: tel: fax: [facility] [address] [place] [address] Referral ID Status Reason Start Date Expiration Date Visits Re quested Visits Authorized [id number] Closed 07/28/2017 01/24/2018 1 1 Encounter Details Date Type Department Care Team (Late st Contact Info) Description 07/28/2017 Telephone [facility] Orthopedics and Sports Medicine [address] [place] [address] Alexandr Lo MD [address] [place] [address] [address] [place] [address] Social History Tobacco Use Types Packs/Day Years Used Date Smoking Tobacco: Smoker, Current Status Unknown Alcohol Use Standard Drinks/Week Comments Yes 0 (1 standard drink = 0.6 oz pur e alcohol) Sex and Gender Information Value Date Recorded Sex Assigned at Not on file 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 He also was supposed to be referred to an ankle specialist. He is wanting a call at [phone]. documented in this encounter Plan of Treatment Not on file documented as of this encounter Results * Fluoro Guided Injection Ankle Right (07/30/2017 2:20 PM CDT) Anatomical Region Laterality Modality Ankle Right Radiographic Cher ging 07/30/2017 2:20 PM CDT Narrative 07/30/2017 2:20 PM CDT XR Injection Ankle R ?Acc#: ??[id number] DATE OF EXAM: ??Jul 30 2017 ?? [...] the department in stable unchanged condition. The director writing radiograph demonstrates marked narrowing of the lateral [...] ??ALEXANDR LO Requesting: ??ALEXANDR LO Requesting Fax: ??[phone] Attending Fax: ??[phone] Attending ID: ??[id number] Requesting ID: ??[id number] Report To 1 ID: ??[id number] Report To 1 Name: ??ALEXANDR LO Report To 1 FAX: ??[phone] [facility] Order #: ??[id number] Procedure Note Miscellaneous, Not In File / Provider, MD Josefina - 07/30/2017 XR Injection Ankle R Acc#: [id number] DATE OF EXAM: Jul 30 2017 XR Injection Ankle R HISTORY: Osteoarthritis of the right ankle. Ankle [...] the department in stable unchanged condition. The director writing radiograph demonstrates marked narrowing of the lateral [...] on: Jul 30 2017 9:56A Transcribed by: [facility] On: Jul 30 2017 9:53A Approved Electronically by: CARLY LINDSEY M.D. on: Jul 30 2017 9:53A Ordering DR: ALEXANDR LO Attending DR: ALEXANDR LO Attending: ALEXANDR LO Requesting: ALEXANDR LO Requesting Attending Attending ID: [id number] Requesting ID: [id number] Report To 1 ID: [id number] Report To 1 Name: ALEXANDR LO Report To 1 FAX: [phone] [facility] Order #: [id number] us Alexandr Lo MD IMG FLUOROSCOPY PROCEDURES F inal Result documented in this encounter Visit Diagnoses Diagnosis Arthritis of right ankle- Primary Arthritis of right ankle documented in this encounter Care Teams Prop Cutter Relationship Specialty Start Date End Date Sophia Damian MD [address] [place] [address] PCP - General 06/05/15 documented as of this encounter
== END 2024-11-01 13:05 | disposition home or self-care (01) ==
LOC: CHSAUDIO 13:09
PROVIDERS: PCP Internal Medicine; Visit Provider Nurse Practitioner Family
DX: H90.6 Mixed conductive and sensorineural hearing loss, bilateral (principal)
CPT/HCPCS: 92557

== ENCOUNTER 2025-01-10 03:11 | Day surgery (SDC) | payer OTHER, SELFPAY ==
[2024-12-31 09:56] VITALS: BMI 31.2
--- NOTE | 2024-12-31 10:02 | PC.NURSE ---
Report to the Outpatient Waiting Room, entrance under the green pavilion located off [facility], at time _1000_ on date _[id number]_. Planned Procedure Time: _1200_.? Time changes happen often and if your time is changed the preop area will call you the afternoon before. - You and your visitor will be asked to self-screen and do not enter if you have any COVID symptoms. Please call surgeon if you need to reschedule. - A mask is optional within the hospital at this time. Patients may have clear liquids (water, carbonated beverages, clear teas, apple juice) until 3 hours prior to surgery with a maximum of 20 ounces. - No food from midnight until time of surgery and no smoking, or chewing tobacco (or any form of nicotine). No chewing gum, candy or mints. Take only the following medications with a SIP of water on the morning of surgery: ___Ear drops OK____ DO NOT STOP ANY OF YOUR OTHER PRESCRIPTION MEDICATIONS PRIOR TO SURGERY EXCEPT THE FOLLOWING Hold all vitamins and supplements for 3 days per anesthesiologist. Medications to discontinue per physician Date to take last dose Please no make-up, nail azeri, hairspray, perfume, deodorant, or body powder the day of surgery.? No jewelry (including any body piercings) or valuables the day of surgery, leave them at home.? Please take a shower or bath the night before, or the morning of, surgery with an antibacterial soap.? Wear comfortable, loose fitting clothing.? - Jewelry must be removed prior to entering the operating room.? Rings and piercings that are not removed may be cut off. - The hospital will not accept responsibility for valuables.? - Please leave all valuables, including medications, at home the day of surgery. If you are going home after surgery, a licensed charter driver must drive you home.? - NO public transportation without another adult if you receive anesthesia. - We recommend that an adult stay with you for 24 hours following discharge. - We also recommend that you do not drive, make important decision, drink alcoholic beverages, or take any drugs that were not prescribed by your health care provider for at least 24 hours after your discharge time. Follow any additional instructions given to you from your surgeon. Telephone instructions given to __Denis__and asked if any additional questions and then verbalized understanding. Patient advised to call surgeon office or pre surgery nurse liaison [phone] if any additional questions.
--- OUTSIDE RECORDS SUMMARY | 2025-01-10 03:15 | XMS_ITS | Patient Health Summary ---
Author Organization [facility] Address [address] [place] [address] Care Team Providers Care Manager Of Human Resources Name Role Phone Sophia Damian MD Primary Care Provider [phone] Note from [facility],non-owned Affiliates and Associated Physician Practices is amultiple site organization consisting of ambulatory clinics and hospital sitesin [place], [place], [place] and [place]. This disclosure is being madepursuant to the Care Everywhere program and may not contain all information available regarding this patient. Last updated 18.[facility] Allergies No known active allergies Medications * Be aware that medications may not be up to date on this document. Alwaysverify current medications with the patient. * ciprofloxacin-dexAMETHasone (Ciprodex) 0.3-0.1 % otic suspension(Started 10/28/2024) Instill 4 (four) drops into right ear 2 times daily Ended Medications* ciprofloxacin-dexAMETHasone (Ciprodex) 0.3-0.1 % otic suspension(Started 12/13/2024)() Instill 4 (four) drops into right ear 2 times daily for 7 days Shake well before using. Immunizations * HEP A VACCINE, ADULT(Given 05/06/2007) * Pneumococcal Pcv13 Conj(Given 04/04/2022) * TDAP, HISTORIC VACCINE(Given 04/04/2022) * Zoster Hzv Vacc Recombinant Inj Im(Given 04/04/2022) Social History Tobacco Use Types Packs/Day Years Used Date Smoking Tobacco: Every Day Cigarettes Smokeless Tobacco: Never Tobacco Cessation:Ready to Q uit: Not Asked; Counseling Given: Not Answered Comments:Smoke 1 pack a day Alcohol Use Standard Drinks/Week Comments Yes 0 (1 standard drink = 0.6 oz pur e alcohol) occassionally Sex and Gender Information Value Date Recorded Sex Assigned at Not on file Gender Identity Not on file Sexual Orientation Not on file Last Filed Vital Signs Vital Sign Reading Time Taken Comments Blood Pressure 125/91 12/13/2024 2:31 PM HOURLY SHIFT Pulse 111 12/13/2024 2:31 PM HOURLY SHIFT Temperature - - Respiratory Rate - - Oxygen Saturation - - Inhaled Oxygen Concentration - - Weight 104.2 kg (229 lb 12.8 oz) 12/13/2024 2:31 PM HOURLY SHIFT Height 182.9 cm (6') 12/13/2024 2:31 PM HOURLY SHIFT Body Mass Index 31.17 12/13/2024 2:31 PM HOURLY SHIFT Procedures * CT TEMPORAL BONES WO CONTRAST(Performed 12/13/2024) Performed for Mixed conductive and sensorineural hearing loss of right ear with restricted hearing of left ear * AUDIOLOGY/TYMPANOMETRY ORDER(Performed 12/13/2024) * PROC CERUMEN REMOVAL(Performed 11/03/2024) Performed for Impacted cerumen of right ear Results * CT Temporal Bones Wo Contrast (12/13/2024 4:22 PM HOURLY SHIFT) Anatomical Region Laterality Modality Head Computed Tomogra phy 12/14/2024 3:36 PM HOURLY SHIFT Impressions 12/14/2024 3:45 PM HOURLY SHIFT IMPRESSION: 1. Near complete opacification of the right mastoid air cells, partial opacification of the right right middle ear cavity and mild thickening of the retracted right tympanic membrane. This are nonspecific findings that may represent otomastoiditis. No bone erosions to suggest cholesteatoma. 2. Two adjacent cutaneous soft tissue lesions just inferior to the left year measuring approximately 1.7 and 1.1 cm in diameter, respectively. Please correlate with direct inspection. > Interpreting Provider: Valetne Mendoza MD on 12/14/2024 3:45 PM Narrative 12/14/2024 3:45 PM HOURLY SHIFT PROCEDURE: CT TEMPORAL BONES WO CONTRAST, DATE/TIME OF EXAM: 12/13/2024 4:22 PM, LOCATION [facility] INDICATION: H90.A31: Mixed conductive and sensorineural hearing loss of right ear with restricted hearing of left ear ADDITIONAL CLINICAL INFORMATION: Ordering Provider Reason For Exam: Technologist Note: Additional: EXAMINATION: Computed tomography (CT) of the temporal bones without contrast TECHNIQUE: CT of the temporal bones was performed without contrast according to standard protocol. COMPARISON: No prior study is available for comparison at the time of this dictation. FINDINGS: Right temporal bone: Near complete opacification of the right mastoid air cells and partial opacification of the right right middle ear cavity. Mild thickening of the retracted right tympanic membrane. The middle ear cavity including the middle ear ossicles, scutum and Prussak's space appear normal. The bony labyrinth including the cochlea and the semicircular canals, internal auditory canal, and petrous apex appear normal. The carotid canal, jugular foramen, and course of the facial nerve appear normal. Left temporal bone: The mastoid air cells are clear. the external auditory canal and auricle appear normal. The tympanic membrane is normal. The middle ear cavity including the middle ear ossicles, scutum and Prussak's space appear normal. The bony labyrinth including the cochlea and the semicircular canals, internal auditory canal, and petrous apex appear normal. The carotid canal, jugular foramen, and course of the facial nerve appear normal. The visualized portions of the skull base and the posterior fossa are normal. The visualized portions of the paranasal sinuses appear normal. Two adjacent cutaneous soft tissue lesions just inferior to the left year measuring approximately 1.7 and 1.1 cm in diameter, respectively. Procedure Note Valente Mendoza MD - 12/14/2024 PROCEDURE: CT TEMPORAL BONES WO CONTRAST, DATE/TIME OF EXAM: 12/13/2024 4:22 PM, LOCATION [facility] INDICATION: H90.A31: Mixed conductive and sensorineural hearing loss of right earwith restricted hearing of left ear ADDITIONAL CLINICAL INFORMATION: Ordering Provider Reason For Exam: Technologist Note: Additional: EXAMINATION: Computed tomography (CT) of the temporal bones without contrast TECHNIQUE: CT of the temporal bones was performed without contrast according to standard protocol. COMPARISON: No prior study is available for comparison at the time ofthis dictation. FINDINGS: Right temporal bone: Near complete opacification of the right mastoidair cells and partial opacification of the right right middle ear cavity.Mild thickening of the retracted right tympanic membrane. The middle earcavity including the middle ear ossicles, scutum and Prussak's space appear normal. The bony labyrinth including the cochlea and the semicircular canals, internal auditory canal, and petrous apex appear normal. The carotid canal, jugular foramen, and course of the facial nerve appear normal. Left temporal bone: The mastoid air cells are clear. the externalauditory canal and auricle appear normal. The tympanic membrane is normal. The middle ear cavity including the middle ear ossicles, scutum andPrussak's space appear normal. The bony labyrinth including the cochlea and the semicircular canals, internal auditory canal, and petrous apex appear normal. The carotid canal, jugular foramen, and course of the facialnerve appear normal. The visualized portions of the skull base and the posterior fossa are normal. The visualized portions of the paranasal sinuses appear normal. Two adjacent cutaneous soft tissue lesions just inferior to the leftyear measuring approximately 1.7 and 1.1 cm in diameter, respectively. IMPRESSION: 1. Near complete opacification of the right mastoid air cells, partial opacification of the right right middle ear cavity and mild thickeningof the retracted right tympanic membrane. This are nonspecific findingsthat may represent otomastoiditis. No bone erosions to suggest cholesteatoma. 2. Two adjacent cutaneous soft tissue lesions just inferior to the left year measuring approximately 1.7 and 1.1 cm in diameter, respectively. Please correlate with direct inspection. > Interpreting Provider: Valente Mendoza MD on 12/14/2024 3:45 PM Justice Aguirre MD CT ORDERABLES * AUDIOLOGY/TYMPANOMETRY ORDER (12/13/2024 2:09 PM HOURLY SHIFT) Narrative Boogie Smith, PhD - 12/13/2024 2:36 PM HOURLY SHIFT HISTORY: Denis Ca is a 64 year old male was seen for an assessment of their hearing. Patient indicated that a video marketing sales supervisor is not necessary for this appointment. The patient reports difficulty hearing. There is not a report of dizziness. There is a report of tinnitus. There is not a report of otalgia. There is a report of noise exposure. There is not a history of previous ear surgery. RESULTS: Pure-tone air/bone conduction testing revealed a moderate sloping to profound mixed hearing in the right ear and a mild sloping to severe mixed hearing in the left ear. Speech Sales Warehouse Driver Thresholds is in good agreement with pure tone average(see speech audiometry for details). Speech understanding was poor in the right ear and fair in the left ear. CNT Immittance measures. NO SEAL. Findings were reviewed and discussed with Denis Ca following the hearing evaluation. All questions were answered. PLAN: 1. The risks and benefits of my recommendations, as well as other treatment options were discussed today. 2. I recommend that the patient follow up with their facility, an ENT or PCP PRN. 3. RETEST POST TREATMENT. 4. HAE AT AN [employer] PROVIDER FOR AMPLIFICATION. 5. DERMATOLOGY FOR POTENTIAL SKIN LESIONS. Boogie Smith, Ph.D., BETSY., CCC-A [employer], Director Division of Clinical Audiology Department of Otolaryngology- Head & Neck Surgery [facility] Dizziness & Imbalance [facility] Boogie Smith PhD AUDIOLOGY SERVICES O RDERABLES * PROC CERUMEN REMOVAL (11/03/2024 3:16 PM HOURLY SHIFT) Narrative Justice Aguirre MD - 11/03/2024 3:16 PM HOURLY SHIFT Justice Aguirre MD 11/03/2024 4:01 PM Procedure: Binocular Microscopic Removal of Impacted Cerumen [...] There was no bleeding Justice Aguirre MD Justice Aguirre MD PROCEDURE/MINOR BOYD GICAL ORDERABLES Care Teams Manager Of Human Resources Relationship Specialty Start Date End Date Sophia Damian MD [address] [place] [id number] PCP - General 02/11/22
--- OUTSIDE RECORDS SUMMARY | 2025-01-10 03:15 | XMS_ITS | Referral Summary ---
Author Organization [facility] Address [address] [place] [address] Care Team Providers Care Cnc Mill Programmer Name Role Phone Sophia Damian MD Primary Care Provider [phone] Source Comments [facility],non-owned Affiliates and Associated Physician Practices is amultiple site organization consisting of ambulatory clinics and hospital sitesin [place], [place], [place] and [place]. This disclosure is being madepursuant to the Care Everywhere program and may not contain all information available regarding this patient. Last updated 18.[facility] Encounters Date Type Department Care Team Description 12/13/2024 Travel 12/13/2024 1:00 PM CUSTOMER CARE ASSISTANT - 12/13/2024 11:59 PM CUSTOMER CARE ASSISTANT Hospital Encounter [facility] CAT SCAN [address] [place] [phone] Justice Aguirre MD Discharge Disposition: Home or Self Care 12/13/2024 2:30 PM CUSTOMER CARE ASSISTANT Office Visit [facility] - ENT [address] [place] [phone] Justice Aguirre MD Mixed conductive and sensorineural hearing loss of right ear with restricted hearing of left ear (Primary Dx); Impacted cerumen of right ear; Chronic diffuse otitis externa of right ear; Perforation of right tympanic membrane; Myringitis 12/13/2024 2:00 PM CUSTOMER CARE ASSISTANT Testing Visit [facility] - ENT [address] [place] [phone] Justice Aguirre MD Harris, Dave, PhD Mixed conductive and sensorineural hearing loss of both ears ; Tinnitus of both ears 12/07/2024 Travel 11/03/2024 Travel 11/03/2024 2:45 PM CUSTOMER CARE ASSISTANT Office Visit [facility] - ENT [address] [place] [address] Justice Aguirre MD Mixed conductive [...] Dispensed Refills Start Date End Date Status ciprofloxacin-dexAME THasone (Ciprodex) 0.3-0.1 % otic suspension Instill 4 (four) drops into right ear 2 times daily 10/28/2024 Active ciprofloxacin-dexAME THasone (Ciprodex) 0.3-0.1 % otic suspension Instill 4 (four) drops into right ear 2 times daily for 7 days Shake well before using. 7.5 mL 12/13/2024 12/20/2024 Immunizations Name Administration Dates Next Due HEP A VACCINE, ADULT 05/06/2007 Pneumococcal Pcv13 Conj 04/04/2022 TDAP, HISTORIC VACCINE 04/04/2022 Zoster Hzv Vacc Recombinant Inj Im 04/04/2022 Social History Tobacco Use Types Packs/Day Years [...] Comments Blood Pressure 125/91 12/13/2024 2:31 PM CUSTOMER CARE ASSISTANT Pulse 111 12/13/2024 2:31 PM CUSTOMER CARE ASSISTANT Temperature - - Respiratory Rate - - Oxygen Saturation - - Inhaled Oxygen Concentration - - Weight 104.2 kg (229 lb 12.8 oz) 12/13/2024 2:31 PM CUSTOMER CARE ASSISTANT Height 182.9 cm (6') 12/13/2024 2:31 PM CUSTOMER CARE ASSISTANT Body Mass Index 31.17 12/13/2024 2:31 PM CUSTOMER CARE ASSISTANT Plan of Treatment Upcoming Encounters Date Type Department Care Team (Late st Contact Info) Description 01/10/2025 2:30 PM CUSTOMER CARE ASSISTANT Office Visit [facility] - [facility] [facility], [place] [address] Justice Aguirre MD [address] [place] [address] [place] [address] Procedures Procedure Name Priority Date/Time Associated Diagnosis Comments CT TEMPORAL BONES WO CONTRAST Routine 12/13/2024 4:22 PM CUSTOMER CARE ASSISTANT Mixed conductive and sensorineural hearing loss of right ear with restricted hearing of left ear AUDIOLOGY/TYMPANOM ETRY ORDER Routine 12/13/2024 2:09 PM CUSTOMER CARE ASSISTANT PROC CERUMEN REMOVAL Routine 11/03/2024 3:16 PM CUSTOMER CARE ASSISTANT Impacted cerumen of right ear from Last 3 Months Results * CT Temporal Bones Wo Contrast (12/13/2024 4:22 PM CUSTOMER CARE ASSISTANT) Anatomical Region Laterality Modality Head Computed Tomogra phy 12/14/2024 3:36 PM CUSTOMER CARE ASSISTANT Impressions 12/14/2024 3:45 PM CUSTOMER CARE ASSISTANT IMPRESSION: 1. Near complete opacification of the [...] Valente Mendoza MD on 12/14/2024 3:45 PM Narrative 12/14/2024 3:45 PM CUSTOMER CARE ASSISTANT PROCEDURE: CT TEMPORAL BONES WO CONTRAST, DATE/TIME OF EXAM: 12/13/2024 4:22 PM, LOCATION [facility] INDICATION: H90.A31: Mixed conductive and sensorineural [...] DATE/TIME OF EXAM: 12/13/2024 4:22 PM, LOCATION [facility] INDICATION: H90.A31: Mixed conductive and sensorineural [...] ORDERABLES * AUDIOLOGY/TYMPANOMETRY ORDER (12/13/2024 2:09 PM CUSTOMER CARE ASSISTANT) Narrative Boogie Smith, PhD - 12/13/2024 2:36 PM CUSTOMER CARE ASSISTANT HISTORY: Denis Ca is a 64 year old male was seen for an assessment of their hearing. Patient indicated that a video hazardous material specialist is not necessary for this appointment. The [...] mixed hearing in the left ear. Speech Roster Clerk Thresholds is in good agreement with pure [...] SKIN LESIONS. Boogie Smith, Ph.D., BETSY., CCC-A Real Estate Accountant, Director Division of Clinical Audiology Department of Otolaryngology- Head & Neck Surgery [facility] Boogie Smith PhD AUDIOLOGY SERVICES O RDERABLES * PROC CERUMEN REMOVAL (11/03/2024 3:16 PM CUSTOMER CARE ASSISTANT) Narrative Justice Aguirre MD - 11/03/2024 3:16 PM CUSTOMER CARE ASSISTANT Justice Aguirre MD 11/03/2024 4:01 PM Procedure: [...] ORDERABLES from Last 3 Months Care Teams Cnc Mill Programmer Relationship Specialty Start Date End Date Sophia Damian MD [address] [place] [address] PCP - General 02/11/22
--- OUTSIDE RECORDS SUMMARY | 2025-01-10 03:15 | XMS_ITS | Clinical Summary ---
Author Organization [facility] Address [address] [place] [address] Care Team Providers Care Hotel Reservation Agent Name Role Phone Sophia Damian MD Primary Care Provider [phone] Source Comments [facility],non-owned Affiliates and Associated Physician Practices is amultiple site organization consisting of ambulatory clinics and hospital sitesin [place], [place], [place] and [place]. This disclosure is being madepursuant to the Care Everywhere program and may not contain all information available regarding this patient. Last updated 18.[facility] Allergies No known active allergies Medications * [...] well before using. 7.5 mL 12/13/2024 12/20/2024 Encounters Date Type Department Care Team Description 12/13/2024 2:30 PM PROCEDURES TECH Office Visit [facility] - ENT [address] [place] [phone] Justice Aguirre MD Mixed conductive and sensorineural hearing loss of right ear with restricted hearing of left ear (Primary Dx); Impacted cerumen of right ear; Chronic diffuse otitis externa of right ear; Perforation of right tympanic membrane; Myringitis 12/13/2024 2:00 PM PROCEDURES TECH Testing Visit [facility] [address] [facility] [place] [address] Justice Aguirre MD Harris, Dave, PhD Mixed conductive and sensorineural hearing loss of both ears ; Tinnitus of both ears 12/13/2024 1:00 PM PROCEDURES TECH - 12/13/2024 11:59 PM PROCEDURES TECH Hospital Encounter [facility] CAT SCAN [address] [place] [address] Justice Aguirre MD Discharge Disposition: Home or Self Care 12/13/2024 Travel 12/07/2024 Travel 11/03/2024 2:45 PM PROCEDURES TECH Office Visit [facility] - ENT [address], [address] [place] [phone] Justice Aguirre MD Mixed conductive and sensorineural hearing loss of right ear with restricted hearing of left ear (Primary Dx); Impacted cerumen of right ear; Bilateral impacted cerumen; Chronic diffuse otitis externa of right ear; Perforation of right tympanic membrane; Myringitis; Otorrhea of right ear 11/03/2024 Travel 11/01/2024 Travel from Last 3 Months Immunizations Name Administration Dates Next Due HEP [...] Comments Blood Pressure 125/91 12/13/2024 2:31 PM PROCEDURES TECH Pulse 111 12/13/2024 2:31 PM PROCEDURES TECH Temperature - - Respiratory Rate - - Oxygen Saturation - - Inhaled Oxygen Concentration - - Weight 104.2 kg (229 lb 12.8 oz) 12/13/2024 2:31 PM PROCEDURES TECH Height 182.9 cm (6') 12/13/2024 2:31 PM PROCEDURES TECH Body Mass Index 31.17 12/13/2024 2:31 PM PROCEDURES TECH Plan of Treatment Upcoming Encounters Date Type Department Care Team (Late st Contact Info) Description 01/10/2025 2:30 PM PROCEDURES TECH Office Visit [facility] - ENT [address] [place] [address], [place] [address] Justice Aguirre MD [address] [place] [address] [place] [address] Health Maintenance Due Date Last Done Comments COLOGUARD (AGES 45-75) - COL ON CA SCREENING 1961 COLON MONITORING 1961 COLONOSCOPY - COLON CA SCREENING 1961 CT COLONOGRAPHY - COLON CA SCREENING 1961 Colorectal Cancer Screening 1961 FIT - COLON CA SCREENING 1961 FLEX SIG - COLON CA SCREENING 1961 LIPID TESTING 1961 HIV SCREENING 1976 HEPATITIS C SCREENING 04/19/1979 PNEUMOCOCCAL VACCINE 50+ (2 of 2 - PPSV23) 05/30/2022 04/04/2022 ZOSTER VACCINE (2 of 2) 05/30/2022 04/04/2022 COVID-19 VACCINE ( - 2023-2 5 season) 2024 INFLUENZA VACCINE (#1) 2024 SCREENING FOR DIABETES 11/03/2024 DEPRESSION SCREENING 11/17/2024 DTAP/TDAP/TD VACCINES (2 - T d or Tdap) 04/04/2032 04/04/2022 Respiratory Syncytial Virus (RSV) Vaccine Pt: or [...] patient's age to complete this topic MENINGOCOCCAL (Group B) VACCINE Aged Out No longer eligible based on patient's age to complete this topic MENINGOCOCCAL VACCINE Aged Out No liam jaylen eligible based on patient's age to complete this topic Procedures Procedure Name Priority Date/Time Associated Diagnosis Comments CT TEMPORAL BONES WO CONTRAST Routine 12/13/2024 4:22 PM PROCEDURES TECH Mixed conductive and sensorineural hearing loss of right ear with restricted hearing of left ear AUDIOLOGY/TYMPANOM ETRY ORDER Routine 12/13/2024 2:09 PM PROCEDURES TECH PROC CERUMEN REMOVAL Routine 11/03/2024 3:16 PM PROCEDURES TECH Impacted cerumen of right ear from Last 3 Months Results * CT Temporal Bones Wo Contrast (12/13/2024 4:22 PM PROCEDURES TECH) Anatomical Region Laterality Modality Head Computed Tomogra phy 12/14/2024 3:36 PM PROCEDURES TECH Impressions 12/14/2024 3:45 PM PROCEDURES TECH IMPRESSION: 1. Near complete opacification of the [...] 12/14/2024 3:45 PM Narrative 12/14/2024 3:45 PM PROCEDURES TECH PROCEDURE: CT TEMPORAL BONES WO CONTRAST, DATE/TIME OF EXAM: 12/13/2024 4:22 PM, LOCATION [facility] INDICATION: H90.A31: Mixed conductive and sensorineural hearing [...] DATE/TIME OF EXAM: 12/13/2024 4:22 PM, LOCATION [facility] INDICATION: H90.A31: Mixed conductive and sensorineural hearing [...] Valente Mendoza MD on 12/14/2024 3:[address] ORDERABLES * AUDIOLOGY/TYMPANOMETRY ORDER (12/13/2024 2:09 PM PROCEDURES TECH) Narrative Boogie Smith, PhD - 12/13/2024 2:36 PM PROCEDURES TECH HISTORY: Denis Rosenchloe is a 64 year old male was seen for an assessment of their hearing. Patient indicated that a video hand flesher is not necessary for this appointment. The [...] mixed hearing in the left ear. Speech Online Education Manager Thresholds is in good agreement with pure [...] POTENTIAL SKIN LESIONS. Boogie Smith, Ph.D., BETSY., [facility] [employer], Director Division of Clinical Audiology Department of Otolaryngology- Head & Neck Surgery [facility] Boogie Smith PhD AUDIOLOGY SERVICES O RDERABLES * PROC CERUMEN REMOVAL (11/03/2024 3:16 PM PROCEDURES TECH) Narrative Justice Aguirre MD - 11/03/2024 3:16 PM PROCEDURES TECH Justice Aguirre MD 11/03/2024 4:01 PM Procedure: [...] ORDERABLES from Last 3 Months Care Teams Hotel Reservation Agent Relationship Specialty Start Date End Date Sophia Damian MD [address] [place] [address] [facility] - General 02/11/22
--- OUTSIDE RECORDS SUMMARY | 2025-01-10 03:15 | XMS_ITS | Referral Summary ---
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
--- OUTSIDE RECORDS SUMMARY | 2025-01-10 03:15 | XMS_ITS | Clinical Summary ---
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 Gender Identity Not on file Sexual Orientation [...] 07/29/2018 11:16 AM CDT Plan of Treatment Health Maintenance Due Date Last Done Comments Colon Cancer Screening-Colonoscopy 1961 Depression Screening 1961 Hepatitis C Screening 1961 Prostate Cancer Screening-PSA 1961 Pneumococcal vaccine <65 (1 of 2 - PCV) 1967 DTaP/Tdap/Td Vaccine (1 - Tdap) 1972 Hepatitis B Screening 1979 Regular Well Visit/Exam 18-64 1979 Zoster Vaccine (1 of 2) 2011 Influenza Vaccine (#1) 2024 Insurance [employer] [facility] EXCHANGE Care Teams Outside Industrial Sales Representative Relationship Specialty Start Date End Date Sophia Damian MD [address] [place] [address] PCP - General 06/05/15
[2025-01-10 10:30] VITALS: BP 139/93; PULSE 71; RESP 14; TEMP 36.6; O2SAT 100
[2025-01-10] MEDS: LACTATED RINGERS 1,000 ML 30 ML IV CONT (10:30)
--- NOTE | 2025-01-10 11:05 | PM.IMHP ---
H&P: HPI History of Present Illness Date/Time: 01/10/25 11:05 Chief Complaint: Posterior auricular mass, groin cyst Narrative: 64 yo man presents for excision of posterior auricular mass and excision of groin cyst. He reports no changes since last seen in office. Review of Systems Review of Systems: All systems reviewed & are unremarkable except as noted in HPI and below Constitutional: Constitutional: Denies chills, Denies fever(s), Denies headache(s) and Denies weight loss Eyes: Eyes: Denies change in vision ENT: Denies dizziness, Denies headache(s), Denies neck mass and Denies throat swelling Cardiovascular: Cardiovascular: Denies chest pain, Denies lightheadedness and Denies dyspnea Respiratory: Respiratory: Denies cough, Denies dyspnea and Denies wheezing Gastrointestinal: Gastrointestinal: Denies abdominal pain, Denies change in bowel habits, Denies nausea and Denies vomiting Genitourinary: Genitourinary: Denies hematuria and Denies dysuria Musculoskeletal: Musculoskeletal: Reports as per HPI Integumentary/Breasts: Skin/Breast: Reports as per HPI Neurologic: Denies dizziness and Denies headache(s) Allergic/Immunologic: Allergic/Immunologic: Denies throat swelling and Denies wheezing [facility] Past Medical History Medical History (Updated 12/09/24 @ 09:39 by Gena Oneill) Hypertension ALPESH (obstructive sleep apnea) Surgical History Surgical History H/O knee surgery History of ankle surgery Social History Social History Smoking packs per day: 0.75 Smoking cigarettes per day: 15.0 Years smoked: 44 Smoking pack-years: 33.00 Smoking status: Current every day smoker Tobacco type: cigarettes Alcohol intake: current Drinks per week: 1 Substance use: never Substance use type: does not use Lack of Transportation: No Lack of Food: Never True Current Housing: I Have Housing Concerned About Future Housing: No Difficulty Paying Gas/Electric Bills: No Difficulty Paying for Meds: No Currently Unemployed: YES Education: Trade/Vocational Certificate Difficulty w/ Childcare or Family Care: No Living arrangements: with family Spiritual care concerns: No Meds Home Medications and Allergies Home Medications ?Medication ?Instructions ?Recorded ?Confirmed ?Type vnirwbgt-rgsngsvid-ukmxlhwov 3.5 4 drp RIGHT EAR Q8H #10 mL 10/23/22 12/31/24 Rx mg/mL-10,000 unit/mL-1 % ear solution Allergies Allergy/AdvReac Type Severity Reaction Status Date / Time No Known Allergies Allergy Verified 01/10/25 10:42 Vital Signs Vital Signs - 24 hr 01/10/25 10:30 Temperature 97.8 F Pulse Rate 71 Respiratory Rate 14 Blood Pressure 139/93 H Pulse Oximetry 100 Oxygen Delivery Room Air Exam Const: General: no acute distress and alert Orientation/consciousness: patient oriented x3 HENMT: Head: normocephalic and atraumatic Ears: hearing grossly normal bilaterally Face/Nose/Sinus: Normal nares present Mouth: Yes Normal oral and palatal mucosa present Eyes: Periorbital: periorbital findings normal Sclera: sclerae normal EOM: EOMs intact bilaterally Neck: Neck: normal visual inspection, no lymphadenopathy and trachea midline Chest: Chest palpation & inspection: normal inspection of the chest Resp: Effort & Inspection: normal respiratory effort Auscultation: clear to auscultation bilaterally Cardio: Jugular venous distension: no JVD Rate: regular rate Rhythm: regular rhythm Heart sounds: S1 normal heart sound present and S2 normal heart sound present Peripheral pulses: Peripheral pulses 2+ throughout GI: Inspection: normal to inspection GI Palp: Yes Soft to palpation, No Tenderness to palpation present (GI), No Guarding due to palpation present (GI) and No Rebound tenderness present Percussion: Yes normal to percussion Auscultation: normal bowel sounds : General: Yes no CVA tenderness Back/Spine/Pelvis: Back: no CVA tenderness Skin: Other: 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 I have discussed the procedure, risks, benefits, and alternatives with the patient. All questions answered. No changes since last seen in office. (2) Epidermoid cyst of skin of inguinal region: Code(s): L72.0 - Epidermal cyst Status: Acute
--- NOTE | 2025-01-10 11:07 | WPDHPUPDATE1 ---
History and Physical Update Update Date/Time: 01/10/25 11:07 History and Physical has been reviewed, including an updated exam of the patient. There are NO changes in the patient's condition. Risks, benefits, and alternatives have been discussed and questions answered. Patient agrees to proceed with procedure.
--- NOTE | 2025-01-10 11:15 | P.PNAN_ITS ---
Anes - Initial Pre Proc Eval Procedure: Operation Date: 01/10/25 12:00 Proposed Procedures p Excision Left Posterior Auricular Mass, Excision Right Groin Cyst - Hector Guerrero DO Date/Time: 01/10/25 11:15 Surgeon: Hector Guerrero DO Pre Op Diagnosis: Pst Auricular Mass Left 3 cm , Rt Groin Cyst 4cm Patient Data Age: 64 Gender: M Height: 1.83 m Weight: 103.8 kg Last Vital Signs Temp 97.8 F 01/10/25 10:30 Pulse 71 01/10/25 10:30 Resp 14 01/10/25 10:30 BP 139/93 H 01/10/25 10:30 Pulse Ox 100 01/10/25 10:30 O2 Del Method Room Air 01/10/25 10:30 Allergies Allergy/AdvReac Type Severity Reaction Status Date / Time No Known Allergies Allergy Verified 01/10/25 10:42 Home Medications ?Medication ?Instructions ?Recorded ?Confirmed ?Type pnjicfmb-kpgakmked-iieanvptx 3.5 4 drp RIGHT EAR Q8H #10 mL 10/23/22 12/31/24 Rx mg/mL-10,000 unit/mL-1 % ear solution Patient hx anesthesia problems: none Family hx anesthesia problems: none Results Review: All pre-operative results and documents have been reviewed as part of the pre- operative evaluation. [facility] Past Medical History Medical History Hypertension ALPESH (obstructive sleep apnea) Surgical History Surgical History H/O knee surgery History of ankle surgery Social History Social History Smoking packs per day: 0.75 Smoking cigarettes per day: 15.0 Years smoked: 44 Smoking pack-years: 33.00 Smoking status: Current every day smoker Tobacco type: cigarettes Alcohol intake: current Drinks per week: 1 Substance use: never Substance use type: does not use Lack of Transportation: No Lack of Food: Never True Current Housing: I Have Housing Concerned About Future Housing: No Difficulty Paying Gas/Electric Bills: No Difficulty Paying for Meds: No Currently Unemployed: YES Education: Trade/Vocational Certificate Difficulty w/ Childcare or Family Care: No Living arrangements: with family Spiritual care concerns: No Anes - Eval Final PreProcedure Day of Procedure 01/10/25 11:15 Patient weight: obese Lungs: normal air movement Airway: Mallampati scale class II Neurological: alert and oriented Last oral intake: >/= 8 hours ASA classification: III Emergent: no Anesthetic plan: proceed Anesthesia type and monitoring: general and standard monitoring Results Review: All pre-operative results and documents have been reviewed as part of the pre- operative evaluation. HTN, ALPESH noncompliant w CPAP, smoker 1 ppd for 40 years, smoked prior to arriva l. Informed Consent: The patient's anesthetic plan and its attendant risks and benefits were discussed with the patient/family/POA. Questions were solicited and answers provided to the satisfaction of the patient/family/POA.
[2025-01-10] MEDS: ceFAZolin 2 GM/D5W 50 ML 2 GM/50 ML BAG IVPB (11:47)
[2025-01-10] MEDS: LIDO 1%/EPINEPHRINE 1:100,000 50 ML VIAL 20 ML INFILTRATE (12:13)
--- NOTE | 2025-01-10 12:27 | SUR.OPER ---
100 mcg Fentanyl given to Harry Vanessa CRNA
[2025-01-10] MEDS: BACITRACIN OINTMENT 15 GM TUBE 1 APPLIC TOPICAL (12:48)
[2025-01-10 13:12] VITALS: BP 120/70; PULSE 66; RESP 18
--- NOTE | 2025-01-10 13:12 | P.OP_ITS ---
Procedure Note - Detailed Date of Procedure 01/10/25 Pre-op Diagnosis Left posterior auricular mass, right groin cyst Post-op Diagnosis Same Procedure Performed 1. Excision of 12 cm right groin cyst with simple closure 2. Excision of 3 cm left posterior auricular mass with layered closure Surgeon Hector Guerrero, DO Anesthesia MAC and Local (1% lidocaine with epinephrine) Indications This is a 64-year-old man who presented with a left posterior auricular mass and right groin cyst. The mass behind the left ear was present for or at least 4 months. He denies any redness or drainage involving this area. The right groin area he states has had problems with intermittent drainage and swelling and pain. The findings in this area were consistent with a right groin cyst near the base of the scrotum. Discussions were made with the patient about treatment options of both areas and decision was made to proceed with excision of left posterior auricular mass and excision of right groin cyst. Findings The 12 cm right groin cyst was completely excised. This was a fairly long area extending from just lateral to the base of his scrotum all the way down towards the perineum. This appeared to be a cystic structure within the subcutaneous space. An elliptical incision was made to excise the entire cyst. This area was primarily closed using 3-0 nylon vertical mattress interrupted sutures. The patient also did appear to possibly have another cyst in the left perineal region but this was left alone at this time. The 3 cm left posterior auricular mass was then excised. This also appeared to have findings consistent with a cyst. It was somewhat bilobed and appeared to be a subcutaneous cyst. A layered closure was then performed at this location using a 3-0 Vicryl inverted interrupted sutures followed by 4-0 Monocryl running subcuticular suture. Both specimens were sent to the lab for pathology. Description of Procedure Procedure as well as risks, benefits, and alternatives were discussed with the patient. Written consent was obtained and placed in chart prior to procedure. Patient was brought back to surgical suite. He was placed supine on operating table. Time-out was done to confirm patient and procedure. IV sedation was then administered by the anesthesia department. He was then repositioned into dorsal lithotomy position in stirrups and his head was tilted to the right. His left posterior auricular area was prepped and draped in sterile fashion using Betadine prep and the right groin area was prepped and draped in sterile fashion using Betadine prep. 1% lidocaine with epinephrine was infiltrated locally at the mass behind the left ear 1st. An elliptical incision was then made using a 15 blade scalpel encompassing the entire mass. The mass was then sharply excis ed completely using the 15 blade scalpel. Electrocautery was then used for hemostasis. The deep dermis was then reapproximated using 3-0 Vicryl inverted interrupted sutures. The skin was then approximated using 4-0 Monocryl running subcuticular suture. Exofin glue was then applied on top. I then moved my attention to the groin region. 1% lidocaine with epinephrine was infiltrated locally around the groin cyst. A 12 cm elliptical incision was then made using a 15 blade scalpel around the entire cyst. The cyst was sharply excised from the surrounding subcutaneous attachments using the 15 blade scalpel. This was completely excised and then sent to the lab for pathology. The wound bed was then inspected. Hemostasis was achieved with electrocautery. There appeared to be possibly another cyst in the left perineum but this appeared to be separate from where the other cyst was. This did not appear to be actively draining and was left alone at this time. The wound bed was then inspected and no other masses were identified in the right groin region. The skin edges were then reapproximated using 3-0 nylon vertical mattress interrupted sutures. Bacitracin ointment was then applied followed by 4 x 4 gauze, ABD pads, and mesh underwear. The patient was then awakened from anesthesia and transferred to recovery. Estimated Blood Loss 10 Pathology Yes (Left posterior auricular mass, right groin cyst) Complications No immediate complications Condition Stable Disposition Same day [facility] Billing Surgery - Charge Forward: Surgery Billing
[2025-01-10 13:40] VITALS: BP 116/59; PULSE 72; RESP 20
[2025-01-10 14:05] VITALS: BP 126/88; PULSE 90; RESP 20
== END 2025-01-10 14:12 | disposition home or self-care (01) ==
PROVIDERS: PCP Internal Medicine; Visit Provider Surgery
PROC: (CPT 11406; principal; 2025-01-10 12:00)
DX: L72.0 Epidermal cyst (principal); I10 Essential (primary) hypertension; G47.33 Obstructive sleep apnea (adult) (pediatric); F17.210 Nicotine dependence, cigarettes, uncomplicated; E66.9 Obesity, unspecified; Z68.31 Body mass index [BMI] 31.0-31.9, adult; Z98.890 Other specified postprocedural states
CPT/HCPCS: 11406; 11443; 12052; 88304; 88305; J0690; J2004; J2250; J2704; J3010; J7120

== ENCOUNTER 2025-02-22 11:29 | Outpatient (CLI) | payer OTHER, SELFPAY ==
[2025-02-22 11:57] LABS: Basophils Absolute Auto 0.08 K/mm3 (0.00-0.10); Basophils Percent Auto 0.8 % (0.0-1.0); Eosinophils Absolute Auto 0.34 K/mm3 (0.02-0.50); Eosinophils Percent Auto 3.6 % (1.0-6.0); Hematocrit 47.4 % (40.0-54.0); Hemoglobin 15.2 g/dL (14.0-18.0); Immature Granulocyte Absolute 0.04 K/mm3 (0.00-0.00); Immature Granulocyte Percent A 0.4 % (0.0-0.0); Lymphocytes Absolute Auto 2.33 K/mm3 (1.10-4.50); Lymphocytes Percent Auto 24.7 % (18.0-42.0); Mean Corpuscular HGB Conc 32.1 g/dL (32-36); Mean Corpuscular Hemoglobin 29.4 pg (27.0-31.0); Mean Corpuscular Volume 91.7 fL (78.0-102.0); Mean Platelet Volume 11.2 fl (8.7-11.0); Monocytes Absolute Auto 1.11 K/mm3 (0.10-0.90); Monocytes Percent Auto 11.8 % (2.0-11.0); Neutrophils Absolute Auto 5.53 K/mm3 (1.70-7.20); Neutrophils Percent Auto 58.7 % (50.0-70.0); Platelet Count Result 295 K/mm3 (150-420); Red Blood Count 5.17 M/mm3 (4.70-6.10); White Blood Count 9.4 K/mm3 (4.8-10.8)
[2025-02-22 11:59] LABS: Add Urine Microscopic? NO; Appearance Urine Clear (Clear); Bilirubin Urine Negative (Negative); Blood Urine Negative (Negative); Color Urine Light Yellow (Yellow); Glucose Urine UA Negative (Negative); Ketones Urine Negative (Negative); Leukocyte Esterase Ur Negative (Negative); Nitrate Urine Negative (Negative); Protein Urine Negative (Negative); Urobilinogen Urine 0.2 mg/dL (0.2-1.0)
[2025-02-22 12:39] LABS: Hemoglobin A1C 5.3 % (<5.7)
[2025-02-22 12:56] LABS: Alanine Aminotransferase 25 U/L (16-63); Albumin Level 3.5 g/dL (3.4-5.0); Alkaline Phosphatase 115 U/L (46-116); Anion Gap 10 mmol/L (4-12); Aspartate Amino Transferase 15 U/L (15-37); Bilirubin,Total 0.3 mg/dL (0.00-1.00); Blood Urea Nitrogen 30 mg/dL (7-18); Calcium 9.4 mg/dL (8.5-10.1); Carbon Dioxide 27 mmol/L (21-32); Chloride 104 mmol/L (98-108); Cholesterol 175 mg/dL (0-200); Estimated Glomerular Filt Rate 57; Glucose 93 mg/dL (70-99); HDL Direct 44 mg/dL (40-60); LDL Cholesterol Calculated 117 mg/dL (<130); Osmolality Calculated 298 mOsm/kg (285-295); Potassium 5.2 mmol/L (3.5-5.1); Prostate Specific Antigen 2.6 ng/mL (< OR = 4.0); Sodium 141 mmol/L (136-145); Total Protein 7.6 g/dL (6.4-8.2); Triglycerides 68 mg/dL (0-150)
--- OUTSIDE RECORDS SUMMARY | 2025-02-22 13:06 | XMS_ITS | Clinical Summary ---
Author Organization [facility] Address [address] [place] [address] Care Team Providers Care Product Development Actuary Name Role Phone Sophia Damian MD Primary Care Provider [phone] Source Comments [facility],non-owned Affiliates and Associated Physician Practices is amultiple site organization consisting of ambulatory clinics and hospital sitesin [place], [place], [place] and [place]. This disclosure is being madepursuant to the Care Everywhere program and may not contain all information available regarding this patient. Last updated 18.[facility] Allergies No known active allergies Medications * Be aware that medications may not be up to date on this document. Alwaysverify current medications with the patient. Medication Sig Dispensed Refills Start Date End Date Status ciprofloxacin-dexAMETH asone (Ciprodex) 0.3-0.1 % otic suspension Instill 4 (four) drops into right ear 2 times daily 10/28/2024 Active Encounters Date Type Department Care Team Description 01/17/2025 2:30 PM BENZENE WORKER Office Visit [facility] - ENT [address] [place] [phone] Justice Aguirre MD Impacted cerumen of right ear (Primary Dx); Chronic diffuse otitis externa of right ear; Perforation of right tympanic membrane; Myringitis; Mixed conductive and sensorineural hearing loss of both ears; Otorrhea of right ear; Retraction of tympanic membrane of right ear 01/17/2025 Travel 01/10/2025 Travel 12/13/2024 2:30 PM BENZENE WORKER Office Visit [facility] - ENT [address] [place] [address] Justice Aguirre MD Mixed conductive and sensorineural hearing loss of right ear with restricted hearing of left ear (Primary Dx); Impacted cerumen of right ear; Chronic diffuse otitis externa of right ear; Perforation of right tympanic membrane; Myringitis 12/13/2024 2:00 PM BENZENE WORKER Testing Visit [facility] - ENT [address] [place] [phone] Justice Aguirre MD Harris, Dave, PhD Mixed conductive and sensorineural hearing loss of both ears ; Tinnitus of both ears 12/13/2024 1:00 PM BENZENE WORKER - 12/13/2024 11:59 PM BENZENE WORKER Hospital Encounter [facility] [address] [place] [address] Justice Aguirre MD Discharge Disposition: Home or Self Care 12/13/2024 Travel 12/07/2024 Travel from Last 3 Months Immunizations Name [...] Sign Reading Time Taken Comments Blood Pressure 161/98 01/17/2025 2:07 PM BENZENE WORKER Pulse 94 01/17/2025 2:07 PM BENZENE WORKER Temperature - - Respiratory Rate - - Oxygen Saturation - - Inhaled Oxygen Concentration - - Weight 105.7 kg (233 lb) 01/17/2025 2:07 PM BENZENE WORKER Height 182.9 cm (6') 01/17/2025 2:07 PM BENZENE WORKER Body Mass Index 31.6 01/17/2025 2:07 PM BENZENE WORKER Plan of Treatment Upcoming Encounters Date Type Department Care Team (Latest Contact Info) Description 03/07/2025 1:30 PM CDT Office Visit [facility] - ENT [address] [place] [phone] Justice Aguirre MD [address] [place], [place] [address] [address] 03/15/2025 7:05 AM CDT Hospital Encounter [facility] [address] [place] [address] Justice Aguirre MD [address] [place], [place] [address] [address] Surgery General 03/15/2025 7:05 AM CDT - 03/15/2025 9:50 AM CDT Surgery [facility] [address] [place] [address] Justice Aguirre MD [address] [place], [place] [address] [address] RIGHT TYMPANOPLASTY 04/04/2025 1:30 PM CDT Office Visit [facility] - ENT [address] [place] [phone] Justice Aguirre MD [address] [place] [address] [place] [address] Scheduled Procedures Name Priority Associated Diagnoses Date/Ti me TYMPANOPLASTY Perforation of right tympanic membrane 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 Retraction of tympanic membrane of right ear 03/15/2025 7:05 AM CDT GRAFT CARTILAGE/COMPOSITE (EAR/NOSE) Perforation of right tympanic membrane 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 Retraction of tympanic membrane of right ear 03/15/2025 7:05 AM CDT Health Maintenance Due Date Last Done Comments [...] (2 of 2) 05/30/2022 04/04/2022 COVID-19 VACCINE (1 - 2023-2 5 season) 2024 SCREENING FOR DIABETES 11/03/2024 DEPRESSION SCREENING 11/17/2024 INFLUENZA VACCINE (Season Ended) 2025 DTAP/TDAP/TD VACCINES (2 - T d or [...] to complete this topic MENINGOCOCCAL (Group B) VACC INE SHARED DECISION-MAKING Aged Out No longer eligibl e based on patient's age to complete this topic MENINGOCOCCAL GROUPS A/C/Y/W VACCINE Aged Out No longer eligible b ased on patient's age to complete this topic Procedures Procedure Name Priority Date/Time Associated Diagnosis Comments CT TEMPORAL BONES WO CONTRAST Routine 12/13/2024 4:22 PM BENZENE WORKER Mixed conductive and sensorineural hearing loss of right ear with restricted hearing of left ear AUDIOLOGY/TYMPANOM ETRY ORDER Routine 12/13/2024 2:09 PM BENZENE WORKER from Last 3 Months Results * CT Temporal Bones Wo Contrast (12/13/2024 4:22 PM BENZENE WORKER) Anatomical Region Laterality Modality Head Computed Tomogra phy 12/14/2024 3:36 PM BENZENE WORKER Impressions 12/14/2024 3:45 PM BENZENE WORKER IMPRESSION: 1. Near complete opacification of the [...] 12/14/2024 3:45 PM Narrative 12/14/2024 3:45 PM BENZENE WORKER PROCEDURE: CT TEMPORAL BONES WO CONTRAST, DATE/TIME OF EXAM: 12/13/2024 4:22 PM, LOCATION [facility] INDICATION: H90.A31: Mixed conductive and sensorineural [...] DATE/TIME OF EXAM: 12/13/2024 4:22 PM, LOCATION [facility] INDICATION: H90.A31: Mixed conductive and sensorineural [...] ORDERABLES * AUDIOLOGY/TYMPANOMETRY ORDER (12/13/2024 2:09 PM BENZENE WORKER) Narrative Boogie Smith, PhD - 12/13/2024 2:36 PM BENZENE WORKER HISTORY: Denis Ca is a 64 year old male was seen for an assessment of their hearing. Patient indicated that a video entry level electrical engineer is not necessary for this appointment. The [...] mixed hearing in the left ear. Speech Instructional Aide Thresholds is in good agreement with pure [...] POTENTIAL SKIN LESIONS. Boogie Smith, Ph.D., BETSY., [facility]-A Diesel Inspector, Director Division of Clinical Audiology Department of Otolaryngology- Head & Neck Surgery [facility] Boogie Smith PhD AUDIOLOGY SERVICES O [facility]LES from Last 3 Months Care Teams Product Development Actuary Relationship Specialty Start Date End Date Sophia Damian MD [address] [place] [address] PCP - General 02/11/22
[2025-02-24 01:59] LABS: Vitamin D 25 Hydroxy 31 ng/mL (30-100)
== END 2025-02-22 11:30 | disposition home or self-care (01) ==
PROVIDERS: PCP Internal Medicine; Visit Provider Internal Medicine
DX: Z00.00 Encounter for general adult medical examination without abnormal findings (principal); I10 Essential (primary) hypertension; R73.01 Impaired fasting glucose; Z12.5 Encounter for screening for malignant neoplasm of prostate; M13.0 Polyarthritis, unspecified; E55.9 Vitamin D deficiency, unspecified
CPT/HCPCS: 36415; 80053; 80061; 81003; 82306; 83036; 84153; 85025; G0103

== ENCOUNTER 2025-03-17 08:43 | Outpatient (CLI) | payer OTHER, SELFPAY ==
--- NOTE | ~2025-03-17 | MR_ITS ---
EXAMINATION: MR abdomen wo/w con, MR pelvis wo/w con DATE: 03/17/2025 10:32 INDICATION: Hematuria. Abnormal CT urogram. TECHNIQUE: Line 1. Magnetic resonance imaging (MRI) of the abdomen was performed without and with 20 mL Multihance in travenous contrast. Sequences included coronal T2-weighted SS-FSE, coronal and axial FS 2D-FIESTA, a xial STIR FSE, axial T2-weighted SS-FSE, axial T2-weighted FS SS-FSE, axial diffusion-weighted SE, ax ial and coronal dual-echo T1-weighted FSPGR, and axial and coronal T1-weighted LAVA. Postcontrast axi al T1-weighted LAVA images were obtained in a time course. Postcontrast coronal T1-weighted LAVA imag es were obtained. 2. MRI of the pelvis was performed without and with the identical 20 mL MultiHance intravenous contra st bolus. Fullfield sequences of the pelvis included axial and coronal T2-weighted SS FSE, coronal 2D FIESTA, axial T1-weighted FSPGR, axial dual-echo T1-weighted FSPGR and axial T1 weighted LAVA. Smal l field of view sequences included axial, sagittal and coronal T2-weighted FSE centered on the uterus and adnexa. Postcontrast axial and coronal T1-weighted LAVA with full-field of view of the pelvis w ere also obtained. COMPARISON: None. FINDINGS: Abdomen: Heart size is normal. No pericardial or pleural effusion. There are multiple superficial subdermal/londono bcutaneous nonenhancing T1 and T2 hyperintense likely complex cystic lesions at the posterior abdomin al and lower chest alvarez which demonstrate low-attenuation on prior CT likely representing epidermoid cyst. There are multiple T2 hyperintense nonenhancing cysts scattered throughout the liver the large st at the caudal aspect of the right hepatic lobe measuring up to 2.1 cm. There are 3 more subtle T2 hyperintense lesions measuring up to 2.0 cm demonstrating avid diffuse enhancement which persists on the 5 minute delayed images and would favor hemangiomas over focal nodular hyperplasia. Gallbladder, spleen and right adrenal gland are normal. There is signal dropout consistent with intracellular lipi d within a couple left adrenal adenomas the largest measuring 2.1 cm. Approximate 2.0 x 1.7 cm comple x cystic lesion at the tail of the pancreas with appearance on the T2-weighted imaging and with clust er of grape like appearance with suggestion of branching communication. The main pancreatic duct is t oo small to be visualized at this location to assess for communication. No abnormal enhancing soft ti ssue component. Pancreas is otherwise unremarkable. There are multiple T2 hyperintense nonenhancing r enal cysts. Additionally there is 2.0 cm somewhat heterogeneous, predominantly T2 isointense, markedl y T1 hyperintense nonenhancing lesion at the lower pole of the left kidney consistent with a complex proteinaceous/hemorrhagic cyst. There is an additional 6 mm T2 hypointense, T1 hyperintense nonenhanc ing cyst at the lower pole of the right kidney. No abnormally enhancing renal lesions identified. Vis ualized portion of the bowels are unremarkable. Small fat-containing umbilical hernia. There is metal lic field artifact associated with a tiny metallic foreign body located on prior CT near the skin kun face at the anterior left lower quadrant. Pelvis: Bladder and prostate are normal. Small bilateral hydroceles. No free fluid in the pelvis. Small fat-c ontaining right inguinal hernia. No pathologically enlarged pelvic or inguinal lymphadenopathy. Low signal intensity sclerotic bone island at the left femoral neck. Severe lumbar spondylosis with fibro vascular degenerative endplate changes. IMPRESSION: 1. Simple and complex renal cysts. No abnormally enhancing renal lesions identified. Line 2. 2.0 x 1.7 cm complex cystic lesion at the tail the pancreas without discrete solid enhancing soft tissue component. The differential diagnosis includes pseudocyst, intraductal papillary mucinous neop lasm (IPMN), mucinous cystic neoplasm (MCN), and the less common serous cystadenoma and neuroendocrin e tumor. Correlate for history of pancreatitis and would recommend either six-month follow-up pre and postcontrast MRI or further evaluation with endoscopic ultrasound. 3. 3 enhancing hepatic lesions measuring up to 2.0 cm with enhancement persisting through the 5 minut e delayed images and with signal characteristics on the T1, T2 and diffusion-weighted imaging favorin g hemangiomas over focal nodular hyperplasia. Reviewed, dictated and finalized at location B. IMPRESSION: 1. Simple and complex renal cysts. No abnormally enhancing renal lesions identi fied. Line 2. 2.0 x 1.7 cm complex cystic lesion at the tail the pancreas without discrete solid enhancing soft tissue component. The differential diagnosis includes pse udocyst, intraductal papillary mucinous neoplasm (IPMN), mucinous cystic neopla sm (MCN), and the less common serous cystadenoma and neuroendocrine tumor. Ana elate for history of pancreatitis and would recommend either six-month follow-u p pre and postcontrast MRI or further evaluation with endoscopic ultrasound. 3. 3 enhancing hepatic lesions measuring up to 2.0 cm with enhancement persisti ng through the 5 minute delayed images and with signal characteristics on the T 1, T2 and diffusion-weighted imaging favoring hemangiomas over focal nodular hy perplasia.
--- NOTE | ~2025-03-17 | CT_ITS ---
CT Scan of the Chest without Contrast: Clinical Indication: Lung cancer screening, nicotine dependence Technique: Contiguous sections were acquired throughout the chest without intravenous contrast. Dose reduction technique was used on this scan by utilizing automated exposure control and iterative recon struction technique. The dose-length product (DLP) was 232.75 mGy-cm. Findings: There is no evidence of any significant mediastinal, hilar or axillary lymphadenopathy. Calcified med iastinal and left hilar lymph nodes are present. There is no evidence of pleural or pericardial effusion. The lungs are clear, aside from calcified granulomas, predominantly in the left lower lobe. Images through the upper abdomen reveal low-density adrenal nodules, likely adenomas. Impression: Lung RADS 2: Benign appearance. 12 month follow-up screening CT advised. Reviewed, dictated and finalized at [facility]. Impression: Lung RADS 2: Benign appearance. 12 month follow-up screening CT advised.
--- OUTSIDE RECORDS SUMMARY | 2025-03-17 08:53 | XMS_ITS | Clinical Summary ---
Author Organization [facility] Address [address] [place] [address] Care Team Providers Care Asp Web Developer Name Role Phone Sophia Damian MD [...] osteoarthritis of right ankle 10/01/2017 Smoker 10/01/2017 Encounters Date Type Department Care Team Description 01/18/[address] [facility] Otolaryngology 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
--- OUTSIDE RECORDS SUMMARY | 2025-03-17 08:53 | XMS_ITS | Clinical Summary ---
Author Organization [facility] [employer] Address [address] [facility] [place] [address] Care Team Providers Care Coding Manager Name Role Phone Sophia Damian MD Primary Care Provider [phone] Source Comments [employer],non-owned Affiliates and Associated Physician Practices is amultiple site organization consisting of ambulatory clinics and hospital sitesin [place], [place], [place] and [place]. This disclosure is being madepursuant to the Care Everywhere program and may not contain all information available regarding this patient. Last updated 18.[employer] Allergies No known active allergies Medications * Be aware that medications may not be up to date on this document. Alwaysverify current medications with the patient. ciprofloxacin-d exAMETHasone (Ciprodex) 0.3-0.1 % otic suspension Instill 4 (four) drops into right ear 2 times daily 10/28/2024 Active Encounters Date Type Department Care Team Description 01/17/2025 2:30 PM CLAM BED LABORER Office Visit [facility] - ENT [address] [place] [phone] Justice Aguirre MD Impacted cerumen of right ear (Primary Dx); Chronic diffuse otitis externa of right ear; Perforation of right tympanic membrane; Myringitis; Mixed conductive and sensorineural hearing loss of both ears; Otorrhea of right ear; Retraction of tympanic membrane of right ear 01/17/2025 Travel 01/10/2025 Travel from Last 3 Months Immunizations Immunization Administration Dates Next Due HEP A VACCINE, [...] at Not on file Legal Sex Male 9:31 AM CDT Gender Identity Not on file Sexual Orientation Not on file Last Filed Vital Signs Vital Sign Reading Time Taken Comments Blood Pressure 161/98 01/17/2025 2:07 PM CLAM BED LABORER Pulse 94 01/17/2025 2:07 PM CLAM BED LABORER Temperature - - Respiratory Rate - - Oxygen Saturation - - Inhaled Oxygen Concentration - - Weight 105.7 kg (233 lb) 01/17/2025 2:07 PM CLAM BED LABORER Height 182.9 cm (6') 01/17/2025 2:07 PM CLAM BED LABORER Body Mass Index 31.6 01/17/2025 2:07 PM CLAM BED LABORER Plan of Treatment Upcoming Encounters Date Type Department Care Team (Late st Contact Info) Description 04/04/2025 1:30 PM CDT Office Visit [facility] - ENT [address] [place] [phone] Justice Aguirre MD [address] [place] [address] [place] [address] Health Maintenance Due Date Last Done Comments [...] Procedure Name Priority Date/Time Associated Diagnosis Comments NM TYMPANOPLASTY Perforation of right tympanic membrane 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
--- OUTSIDE RECORDS SUMMARY | 2025-03-17 08:53 | XMS_ITS | Referral Summary ---
Author Organization [facility] Address [address] [place] [address] Care Team Providers Care Furnace Stock Inspector Name Role Phone Sophia Damian MD Primary Care Provider [phone] Encounters Date Type Department Care Team Description 01/18/2025 Telephone [facility] Otolaryngology [facility] [address] 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
== END 2025-03-17 08:44 | disposition home or self-care (01) ==
LOC: CHSIMG 08:46
PROVIDERS: PCP Internal Medicine; Visit Provider Internal Medicine
DX: Z12.2 Encounter for screening for malignant neoplasm of respiratory organs (principal); Z87.891 Personal history of nicotine dependence; R31.9 Hematuria, unspecified; N28.1 Cyst of kidney, acquired; K86.9 Disease of pancreas, unspecified; K76.9 Liver disease, unspecified
CPT/HCPCS: 71271; 72197; 74183; A9577

== ENCOUNTER 2025-03-22 11:28 | Outpatient (CLI) | payer OTHER, SELFPAY ==
--- OUTSIDE RECORDS SUMMARY | 2025-03-22 12:15 | XMS_ITS | Referral Summary ---
Author Organization [facility] Address [address] [place] [address] Care Team Providers Care Public Address System Installer Name Role Phone Sophia Damian MD Primary Care Provider [phone] Encounters Date Type Department Care Team Description 01/18/[address] [facility] Otolaryngology [facility] [address] 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
--- OUTSIDE RECORDS SUMMARY | 2025-03-22 12:15 | XMS_ITS | Clinical Summary ---
Author Organization [facility] [employer] Address [address] [place] [address] Care Team Providers Care Internet Sales Representative Name Role Phone Sophia Damian MD Primary Care Provider [phone] Source Comments [facility] [employer],non-owned Affiliates and Associated Physician Practices is amultiple site organization consisting of ambulatory clinics and hospital sitesin [place], [place], [place] and [place]. This disclosure is being madepursuant to the Care Everywhere program and may not contain all information available regarding this patient. Last updated 18.Agenda Allergies No known active allergies Medications * Be aware that medications may not be up to date on this document. Alwaysverify current medications with the patient. ciprofloxacin-d exAMETHasone (Ciprodex) 0.3-0.1 % otic suspension Instill 4 (four) drops into right ear 2 times daily 10/28/2024 Active Encounters Date Type Department Care Team Description 01/17/2025 2:30 PM RETAIL [employer]AN Office Visit [facility] - ENT [address] [place] [phone] Justice Aguirre MD Impacted cerumen of right [...] Comments Blood Pressure 161/98 01/17/2025 2:07 PM RETAIL SALESMAN Pulse 94 01/17/2025 2:07 PM [employer]AIL [employer] Temperature - - Respiratory Rate - - Oxygen Saturation - - Inhaled Oxygen Concentration - - Weight 105.7 kg (233 lb) 01/17/2025 2:07 PM RETAIL SALESMAN Height 182.9 cm (6') 01/17/2025 2:07 PM RETAIL SALESMAN Body Mass Index 31.6 01/17/2025 2:07 PM RETAIL SALESMAN Plan of Treatment Upcoming Encounters Date Type Department Care Team (Late st Contact Info) Description 04/04/2025 1:30 PM CDT Office Visit [facility] - ENT [address] [place] [phone] Justice Aguirre MD [address] [place] [address] [place] [address] Health Maintenance Due Date Last Done Comments [...] Procedure Name Priority Date/Time Associated Diagnosis Comments CA TYMPANOPLASTY Perforation of right tympanic membrane 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
--- OUTSIDE RECORDS SUMMARY | 2025-03-22 12:15 | XMS_ITS | Clinical Summary ---
Author Organization [facility] Address [address] [place] [address] Care Team Providers Care Publications Inspector Name Role Phone Sophia Damian MD [...] Type Department Care Team Description 01/18/2025 Telephone [facility] Otolaryngology [address] [place] [address] Ghazala Russo MS from Last [...] on file Legal Sex Male 3:53 PM [employer] FORWARD[employer] Gender Identity Not on file Sexual Orientation [...] Not on file Insurance EXCHANGE Care Teams Publications Inspector Relationship Specialty Start Date End Date Sophia Damian MD [address] [place] [address] PCP - General 06/05/15
== END 2025-03-22 11:29 | disposition home or self-care (01) ==
LOC: CHSIMG 11:30
PROVIDERS: PCP Internal Medicine; Visit Provider Internal Medicine
DX: J44.9 Chronic obstructive pulmonary disease, unspecified (principal)
CPT/HCPCS: 94060; 94726; 94729